=== PATIENT | female | born 1965 | race American Indian/Alaskan Native ===

== ENCOUNTER 2017-09-12 09:33 | Day surgery (SDC) | payer MEDICAID ==
--- NOTE | 2017-09-12 10:37 | Anesthesia Day of Surgery ---
Anesthesia Day of Surgery - Day of Surgery Patient Examined: Yes Patient H&P Reviewed: Yes Patient is NPO: Yes
--- NOTE | 2017-09-12 10:37 | Anesthesia Consultation ---
Anesthesia Consult and Med Hx Date of service: 09/12/17 - Airway Anesthetic Teeth Evaluation: Good ROM Head & Neck: Adequate Mental/Hyoid Distance: Adequate Mallampati Class: Class I Intubation Access Assessment: Good - Pulmonary Exam CTA: Yes - Cardiac Exam Cardiac Exam: RRR - Pre-Operative Health Status ASA Pre-Surgery Classification: ASA3 Proposed Anesthetic Plan: General - Cardiovascular System Hx Hypertension: Yes (3 YEARS) - Central Nervous System Hx Back Pain: Yes Hx Psychiatric Problems: No - Endocrine Hx Non-Insulin Dependent Diabetes: Yes - Hematic Hx Sickle Cell Disease: Yes (TRAIT) - Other Systems Hx Alcohol Use: No Hx Substance Use: No Hx Cancer: No
[2017-09-12] MEDS ORDERED: NACL BACTERIOSTATIC INFILTRATI ONE (10:50)
[2017-09-12] MEDS ORDERED: NACL 0.9% 1000 ML 1,000 ML IV SCH (11:00)
[2017-09-12] MEDS ORDERED: ANCEF/STERILE WATER 2 GM/20 ML IV NR (11:00)
[2017-09-12] MEDS ORDERED: VERSED IV NR (11:00)
[2017-09-12] MEDS ORDERED: SUBLIMAZE ONE ×3 (12:11→15:03)
[2017-09-12] MEDS ORDERED: DIPRIVAN 10 MG/ML IV ONE (12:11)
[2017-09-12] MEDS ORDERED: XYLOCAINE MPF 2% ONE (12:16)
[2017-09-12] MEDS ORDERED: ZEMURON IV ONE (12:16)
[2017-09-12] MEDS ORDERED: XYLOCAINE 1% 20 mL ONE (12:19)
[2017-09-12] MEDS ORDERED: MARCAINE 0.5% 30 ML INFILTRATI ONE (12:19)
[2017-09-12] MEDS ORDERED: NEO SYNEPHRINE/NS Syringe(OR USE) IV ONE (13:02)
[2017-09-12] MEDS ORDERED: NACL 0.9% IR ONE ×2 (13:07→13:08)
[2017-09-12] MEDS ORDERED: MARCAINE 0.5% INFILTRATI ONE (13:08)
[2017-09-12] MEDS ORDERED: XYLOCAINE 1% 20 mL INFILTRATI ONE (13:08)
[2017-09-12] MEDS ORDERED: ePHEDrine SULFATE ONE (13:10)
[2017-09-12] MEDS ORDERED: ROBINUL ONE ×2 (14:14)
[2017-09-12] MEDS ORDERED: NEOSTIGMINE ONE (14:15)
[2017-09-12] MEDS ORDERED: ZOFRAN ONE (14:15)
[2017-09-12] MEDS ORDERED: NACL 0.9% 1000 ML 1,000 ML ONE (14:22)
[2017-09-12] MEDS ORDERED: DILAUDID ONE (14:28)
--- NOTE | 2017-09-12 14:44 | Short Stay Summary ---
Short Stay Documentation Date of service: 09/12/17 Narrative H&P: 52 yo F with recurrent severe RUQ pain presented for evaluation of gallbladder. The patient has symptomatic cholelithiasis. She was scheduled for cholecystectomy and presents today for the procedure. - History Principal diagnosis: chronic cholecystitis H&P: obtained from office - Allergies and Medications Current Medications: Allergies No Known Allergies Allergy (Verified 09/10/17 13:14) Home Medications Medication Instructions Recorded Confirmed Last Taken Type Insulin Glargine [Lantus] 15 unit SUB-Q QHS 09/10/17 09/10/17 09/11/17 History amLODIPine [Norvasc] 5 mg PO DAILY 09/10/17 09/12/17 09/12/17 07:00 History metFORMIN [Glucophage] 500 mg PO QHS 09/10/17 09/10/17 09/11/17 History Active Medications Cefazolin Sodium (Ancef/Sterile Water 2 Gm/20 Ml) 2 gm IV PREOP NR Stop: 09/12/17 21:00 Sodium Chloride (Nacl 0.9% 1000 Ml) 1,000 mls @ 100 mls/hr IV DIRECT ABRAHAM Last Admin: 09/12/17 11:20 Dose: 100 mls/hr Midazolam HCl (Versed) 2 mg IV PREOP NR Stop: 09/12/17 23:59 Last Admin: 09/12/17 11:21 Dose: 2 mg - Brief post op/procedure progress note Date of procedure: 09/12/17 Pre-op diagnosis: chronic cholecystitis Post-op diagnosis: same Procedure: Laparoscopic cholecystectomy Anesthesia: GETA, local Findings: thickened gallbladder wall. Gallbladder neck chronically adhered to area of common bile duct. Surgeon: SILVANO PRATT Estimated blood loss: minimal Pathology: list (gallbladder) Specimen disposition: to lab Condition: stable - Hospital course Hospital course: Patient was recovered in PACU and discharged to home when criteria was met. - Disposition Condition at discharge: Good Disposition: DC-01 TO HOME OR SELFCARE Short Stay Discharge Plan Activity: other (no heavy lifiting for [address] while on prescription pain meds) Diet: low fat Wound: open to air, other (May shower tomorrow, no baths/hottubs/pools until incisions healed. Pat incisions dry, do not scrub) Additional Instructions: Call surgeon's office if you have fevers>100.4, intractable abdominal pain, nausea, vomiting, redness/drainage from incisions. Follow up with: BOONE HUBER MD [Primary Care Provider] - 7 Days SILVANO PRATT DO [Staff Physician] - 14 Days Prescriptions: traMADol [Ultram 50 MG tab] 50 mg PO Q6HR PRN #20 tablet PRN Reason: Pain
[2017-09-12] MEDS ORDERED: TORADOL IV PRN (14:59)
[2017-09-12] MEDS: SUBLIMAZE IV PRN ×2 (15:02→15:12)
--- NOTE | 2017-09-12 15:04 | Post Anesthesia Evaluation ---
- Post Anesthesia Evaluation Patient Participated: Yes Airway Patent: Yes Stable Respiratory Function: Yes Nausea/Vomiting: No Temp > 96.8F: Yes Pain Manageable: Yes Adequeate Hydration: Yes Anesthesia Complications: No
[2017-09-12] MEDS ORDERED: ULTRAM PO PRN (15:09)
--- NOTE | 2017-09-12 15:32 | Operative Report ---
Operative Report Operative Report: Date of operation: 09/12/2017 Preoperative diagnosis: Symptomatic cholelithiasis Postoperative diagnosis: chronic cholecystitis, hydropic gallbladder Procedure performed: Laparoscopic cholecystectomy Surgeon: Terence Gusman DO Anesthesia: Gen. endotracheal anesthesia Findings: Chronically inflamed gallbladder wall, cholelithiasis. The neck of the gallbladder was chronically scarred to area of common bile duct Estimated blood loss: 10 mL Specimens: Gallbladder Complications: None Disposition: Stable to PACU HPI and indication: Patient's a 52-year-old female who was referred to surgery office for evaluation of gallbladder disease. The patient was having severe, intermittent but frequent episodes of right upper quadrant abdominal pain associated with nausea and emesis. These were severely limiting her lifestyle. After reviewing the appropriate lab work and imaging, the patient was found to have cholelithiasis. All risks including but not limited to, infection, bleeding, injury to surrounding structures, bile leak, conversion to an open operation were discussed with the patient and questions answered. Consent for laparoscopic, possible open cholecystectomy was signed. Procedure in detail: The patient was identified in the preoperative area, taken back to the operating room, placed on the operating room table in supine position. After anesthesia was induced, the abdomen was prepped and draped in usual sterile fashion a timeout was performed. Local anesthetic was infiltrated into all skin incision sites. A 5 mm supraumbilical incision was made with an 11 blade through which a veress needle was inserted. The positioning of the veress needle was confirmed with the saline drop test. Abdomen was then insufflated to 15 mmHg. The veress needle was then removed and a 5 mm optiview trocar was placed through this incision. The abdomen was inspected and there was no underlying injury to any of the abdominal contents. The gallbladder was visualized. An additional 12 mm subxiphoid into 5 mm right upper quadrant ports were then placed all under direct visualization. The gallbladder was grasped and lifted cephalad and above the liver. The gallbladder appeared chronically inflamed with a thickened gallbladder wall. The neck of the gallbladder was retracted and the cystic artery was dissected using [place] dissectors. The cystic artery was seen to be pulsatile and dissected distally to the point where it was seen entering the gallbladder. There was chronic inflammation of the fat surrounding the common bile duct which was adhered to the neck of the gallbladder and could not be safely . Therefore it was decided to remove the gallbladder from the liver bed using the dome down approach. The peritoneum of the gallbladder was scored using electrocautery and the gallbladder was carefully removed off the liver bed from the fundus towards the neck using electrocautery. Once the gallbladder was completely removed off the liver bed and the gallbladder neck and cystic artery were the only 2 structures visualized connected to the gallbladder, the cystic artery was clipped with 2 clips proximally and 1 distally and transected using Endo andrea. The gallbladder neck was transected using an Endo SARAH 45 mm white load stapler. The gallbladder was then placed into the Endocatch bag and removed from the abdomen via 12 mm port. The gallbladder was inspected. The cystic artery was examined and clip removed and there was no leakage of bile. The staple line at the neck of the gallbladder was cut with scissors and there was leakage of clear bile and small stones. There were no other tubular structures adhered to the gallbladder. The gallbladder fossa was then inspected, irrigated, and hemostasis achieved using electrocautery. The clips on the cystic artery were visualized and intact. The staple line was visualized and there was no leakage of bile. Gayle's pouch was irrigated and the irrigant returned clear. All ports were then removed under direct visualization. The 12 mm port fascia was closed with interrupted 0 Vicryl sutures. All skin incisions were closed using 4-0 Monocryl subcuticular stitches and skin glue. At the end of the case, all sponge, instrument, sharp counts were correct 2. The patient was awoken from anesthesia, extubated and taken to PACU in stable condition.
[2017-09-12 16:25] VITALS: BP 124/70
== END 2017-09-12 16:59 | disposition home or self-care (01) ==
LOC: OR 09:33
PROVIDERS: ATTEND Surgery
DX: K80.10 Calculus of gallbladder with chronic cholecystitis without obstruction (principal); E11.9 Type 2 diabetes mellitus without complications; I10 Essential (primary) hypertension; D57.3 Sickle-cell trait; Z79.4 Long term (current) use of insulin; Z90.710 Acquired absence of both cervix and uterus; Z98.890 Other specified postprocedural states
CPT/HCPCS: 47562; 82962; 88304; A4217; J0690; J1170; J1885; J2250; J2370; J2405; J2704; J2710; J3010; J7030

== ENCOUNTER 2017-09-14 12:46 | Inpatient (IN) | payer MEDICAID ==
[2017-09-14] MEDS ORDERED: ZOFRAN IV ONE ×3 (13:12→15:56)
[2017-09-14] MEDS ORDERED: ZOFRAN ONE (13:14)
[2017-09-14 14:12] LABS: Basophils % (Auto) 0.4 % (0.0-1.8); Eosinophils # (Auto) 0.1 K/mm3 (0.0-0.4); Eosinophils % (Auto) 1.3 % (0.0-4.3); Hematocrit 39.1 % (30.3-42.9); Hemoglobin 13.1 gm/dl (10.1-14.3); Lymphocytes # (Auto) 1.3 K/mm3 (1.2-5.4); Mean Corpuscular HGB Conc 34 % (30-34); Mean Corpuscular Hemoglobin 26 pg (28-32); Mean Corpuscular Volume 78 fl (79-97); Monocytes # (Auto) 0.5 K/mm3 (0.0-0.8); Monocytes % (Auto) 7.2 % (0.0-7.3); Red Blood Count 5.02 M/mm3 (3.65-5.03)
[2017-09-14 14:17] LABS: Alanine Aminotransferase 113 units/L (7-56); Albumin 3.4 g/dL (3.9-5); BUN/Creatinine Ratio 30; Blood Urea Nitrogen 6 mg/dL (7-17); Hemolysis Index 46; Lipase 20 units/L (13-60)
--- NOTE | 2017-09-14 14:44 | XRay Report ---
FINAL REPORT EXAM: XR CHEST 1V AP HISTORY: wheezes TECHNIQUE: Frontal chest x-ray. PRIORS: None currently available. FINDINGS: Mild cardiomegaly. Tortuous descending aorta. There is no effusion. There is no pneumothorax. There is no consolidation. There are no suspicious osseous lesions. Dextroscoliosis. IMPRESSION: Mild cardiomegaly. No acute pulmonary findings.
[2017-09-14] MEDS ORDERED: MORPHINE ONE (14:53)
[2017-09-14] MEDS ORDERED: SUBLIMAZE IV ONE (14:54)
[2017-09-14 14:56] LABS: Mean Platelet Volume 9.8 fl (6-12); Platelet Count 126 K/mm3 (140-440)
--- NOTE | 2017-09-14 15:01 | Cat Scan Report ---
FINAL REPORT EXAM: CT ABDOMEN PELVIS W CON HISTORY: pain TECHNIQUE: CT of the abdomen and pelvis with IV contrast. Coronal and sagittal reconstructed imaging provided. PRIORS: None currently available. FINDINGS: ABDOMEN: Small bilateral pleural effusions with adjacent areas of subsegmental atelectasis and or infiltrates. [id number] cardiomegaly. No pericardial effusion. Fatty liver. No suspicious enhancement or lesions. Stranding and trace fluid in the right colonic gutter may represent postsurgical changes. Small biloma is not entirely excluded. Cholecystectomy clips identified. Stranding and gas in the overlying abdominal wall soft tissues also suggest postsurgical changes. Series 3:62 demonstrates the right lateral rectus muscle appears slightly asymmetrically larger compared to the left and may represent postsurgical changes. Stomach, spleen, pancreas, and adrenals are unremarkable. Kidneys: Subcentimeter hypodensity in right kidney statistically likely represents a cyst but is too small to accurately characterize. Symmetrical cortical enhancement. No suspicious lesions. No hydronephrosis. IVC is intact. No aortic aneurysm or dissection. Mild aortic atherosclerotic disease. No periaortic or retroperitoneal mass or adenopathy. Ixma-ja-lwayooky stool is present throughout the colon. No wall thickening or inflammatory changes. Terminal ilium is unremarkable. Appendix is normal. Small bowel loops are unremarkable. No obstructive pattern. No free air. No free fluid. Diastasis recti. Fat containing umbilical hernia. No strangulation. Trace fluid and stranding noted in Morison's pouch. PELVIS: Small amount of fluid in the pelvis which may be postsurgical or physiologic. Bladder is unremarkable. Uterus is not clearly identified and may be surgically removed, small, or atrophic. No pelvic mass or adenopathy. Inguinal regions are unremarkable. Bones: No suspicious osseous lesions on this limited examination of the skeleton. Metastatic disease better evaluated with bone scan. Degenerative changes are in the spine. IMPRESSION: Trace fluid and stranding in the gallbladder fossa and hand Morison's pouch with a cholecystectomy clips suggest postsurgical changes. Postsurgical changes also noted within the right upper quadrant anterior abdominal soft tissues. Small biloma not entirely excluded. Small bilateral pleural effusions. Fatty liver. Cardiomegaly. Probable right renal cyst. Small amount of fluid in the pelvis which may be postsurgical or physiologic.
[2017-09-14] MEDS ORDERED: MORPHINE IV ONE (15:02)
[2017-09-14 15:18] LABS: Bacteria,Urine 1+ /HPF (Negative); Bilirubin,Urine SM (Negative); Blood,Urine NEG (Negative); Color,Urine Amber (Yellow); Mucus,Urine FEW /HPF; Nitrite,Urine NEG (Negative); Protein,Urine <15 mg/dL mg/dL (Negative); Urobilinogen,Urine < 2.0 mg/dL (<2.0)
[2017-09-14 15:26] LABS: Ictotest,Urine Negative (Negative)
[2017-09-14] MEDS ORDERED: NACL 0.9% 1000 ML 1,000 ML IV ONE ×2 (15:56→21:43)
--- NOTE | 2017-09-14 17:32 | Emergency Department Report ---
ED Abdominal Pain HPI - General Chief Complaint: Abdominal Pain Stated Complaint: ABD PAIN FROM SURGERY Time Seen by Provider: 09/14/17 13:46 Source: patient, EMS Mode of arrival: Stretcher Limitations: No Limitations - History of Present Illness Initial Comments: 52-year-old history of diabetes status post laparoscopic cholecystectomy 2 days here with worsening persistent nausea vomiting and abdominal pain. No shortness of breath no cough no productive sputum no urinary complaints MD Complaint: abdominal pain -: hour(s) Location: diffuse, epigastric Radiation: none Migration to: RLQ Severity: moderate Severity scale (0 -10): 1 Quality: cramping Consistency: intermittent Associated Symptoms: nausea, vomiting. denies: diarrhea, fever, chills, hematemesis, hematochezia, melena, hematuria, syncope - Related Data Home Medications Medication Instructions Recorded Confirmed Last Taken Insulin Glargine [Lantus VIAL] 15 unit SUB-Q QHS 09/10/17 09/10/17 09/11/17 amLODIPine [Norvasc] 5 mg PO DAILY 09/10/17 09/12/17 09/12/17 07:00 metFORMIN [Glucophage] 500 mg PO QHS 09/10/17 09/10/17 09/11/17 Previous Rx's Medication Instructions Recorded Last Taken Type traMADol [Ultram 50 MG tab] 50 mg PO Q6HR PRN #20 tablet 09/12/17 Unknown Rx Allergies Allergy/AdvReac Type Severity Reaction Status Date / Time No Known Allergies Allergy Verified 09/10/17 13:14 ED Review of Systems ROS: Stated complaint: ABD PAIN FROM SURGERY Other details as noted in HPI Comment: All other systems reviewed and negative Constitutional: denies: chills, diaphoresis, fever, malaise, weakness ENT: denies: dental pain, hearing loss, congestion Respiratory: denies: cough, orthopnea, shortness of breath, SOB with exertion, SOB at rest Cardiovascular: denies: chest pain, palpitations, dyspnea on exertion, orthopnea , edema, syncope Gastrointestinal: abdominal pain, nausea, vomiting. denies: diarrhea, constipation, hematemesis, melena, hematochezia Genitourinary: denies: urgency, dysuria, frequency, hematuria, abnormal menses, dyspareunia Neurological: denies: headache, weakness, numbness, paresthesias, confusion, abnormal gait, vertigo ED Past Medical Hx - Past Medical History Hx Hypertension: Yes (3 YEARS) Hx Diabetes: Yes (4 YEARS) Hx Sickle Cell Disease: Yes (TRAIT) Hx Arthritis: Yes Hx HIV: No - Surgical History Hx Cholecystectomy: Yes (09/12/2017) - Social History Smoking Status: Never Smoker Substance Use Type: None - Medications Home Medications: Home Medications Medication Instructions Recorded Confirmed Last Taken Type Insulin Glargine [Lantus VIAL] 15 unit SUB-Q QHS 09/10/17 09/10/17 09/11/17 History amLODIPine [Norvasc] 5 mg PO DAILY 09/10/17 09/12/17 09/12/17 07:00 History metFORMIN [Glucophage] 500 mg PO QHS 09/10/17 09/10/17 09/11/17 History traMADol [Ultram 50 MG tab] 50 mg PO Q6HR PRN #20 tablet 09/12/17 Unknown Rx ED Physical Exam - General Limitations: No Limitations General appearance: alert, anxious - Head Head exam: Present: atraumatic, normocephalic - Eye Eye exam: Present: PERRL, EOMI - ENT ENT exam: Present: normal exam, normal orophraynx - Neck Neck exam: Present: normal inspection. Absent: meningismus - Respiratory Respiratory exam: Present: normal lung sounds bilaterally. Absent: respiratory distress, wheezes, rales, rhonchi, stridor, chest wall tenderness, accessory muscle use, decreased breath sounds, prolonged expiratory - Cardiovascular Cardiovascular Exam: Present: regular rate, normal heart sounds. Absent: rubs, gallop - GI/Abdominal GI/Abdominal exam: Present: soft, tenderness. Absent: guarding, pulsatile mass - Extremities Exam Extremities exam: Present: normal inspection, other (decreased turgor). Absent : calf tenderness - Back Exam Back exam: Present: normal inspection. Absent: muscle spasm, paraspinal tenderness, vertebral tenderness, rash noted - Neurological Exam Neurological exam: Present: alert, oriented X3, CN II-XII intact. Absent: motor sensory deficit - Skin Skin exam: Absent: erythema, urticaria, vesicles, petechiae, ecchymosis ED Course Vital Signs 09/14/17 09/14/17 09/14/17 12:55 13:00 13:03 Temperature 98.9 F Pulse Rate 77 82 Respiratory 24 16 Rate Blood Pressure 169/89 161/90 O2 Sat by Pulse 99 95 97 Oximetry 09/14/17 09/14/17 09/14/17 13:30 14:00 14:39 Temperature Pulse Rate 82 74 88 Respiratory 21 21 Rate Blood Pressure 136/77 160/82 160/82 O2 Sat by Pulse 98 96 Oximetry 09/14/17 09/14/17 09/14/17 15:00 15:11 15:21 Temperature Pulse Rate 79 75 77 Respiratory 15 15 19 Rate Blood Pressure 163/90 163/90 163/90 O2 Sat by Pulse 100 100 99 Oximetry 09/14/17 09/14/17 09/14/17 15:30 15:40 15:46 Temperature Pulse Rate 82 78 77 Respiratory 18 23 16 Rate Blood Pressure 178/101 178/101 178/101 O2 Sat by Pulse 96 100 Oximetry 09/14/17 09/14/17 09/14/17 16:00 16:15 16:26 Temperature 99 F Pulse Rate 77 77 Respiratory 25 H 24 Rate Blood Pressure 160/88 169/82 O2 Sat by Pulse 96 Oximetry - Reevaluation(s) Reevaluation #1: 09/14/17 17:37 Patient given IV fluids and antiemetics CT was ordered laboratory studies was discussed with ED Medical Decision Making - Lab Data Result diagrams: 09/14/17 13:26 09/14/17 13:26 - Radiology Data Radiology results: report reviewed - Medical Decision Making Patient has normal white count does have elevated total bilirubin she does have dark urine as well question of mild UTI. Chest x-ray is no acute process for infection. CT abdomen does show possible biloma given the symptoms with persistent nausea and vomiting and pain elevated bilirubin. Case was discussed with Dr. TEJEDA we will go ahead and admit and get MR CP to evaluate for possible retained stone patient is improved in pain and symptoms case was also discussed with Dr. Ronquillo who will evaluate patient for medical management of diabetes and high blood pressure. Dr. Willingham did return the page and stated be okay to admit the patient to the surgical service for further management. Patient is mild to moderately discomfort but does not appear septic or toxic at this time therefore we will hold antibiotics given the normal WBC. Critical care attestation.: If time is entered above; I have spent that time in minutes in the direct care of this critically ill patient, excluding procedure time. ED Disposition Clinical Impression: Abdominal pain, Elevated bilirubin Disposition: DC-09 OP ADMIT IP TO THIS HOSP Is pt being admited?: Yes Condition: Stable Instructions: Abdominal Pain (ED) Referrals: PRIMARY CARE, [Primary Care Provider] - 3-5 Days Time of Disposition: 17:40
--- NOTE | 2017-09-14 20:34 | Magnetic Resonance Report ---
FINAL REPORT EXAM: MR ABDOMEN MRCP HISTORY: post op/possible ductal stone COMPARISON: CT of the abdomen pelvis from September 14, 2017. TECHNIQUE: Several multiplanar noncontrast sequences were obtained. Max intensity projection images obtained of the biliary and pancreatic tree. FINDINGS: Gallbladder surgically absent. Susceptibility artifact at the gallbladder fossa related to surgical clips. Trace fluid in the gallbladder fossa. No definite drainable fluid collection on this noncontrast exam. Mild diffuse fatty infiltration of the liver. No gross focal hepatic lesion. Liver measures 20 centimeters in length within normal limits. There is gas within the lumen of the duodenum. Common bile duct measures up to 6 millimeters, borderline dilated for patient age. At the pancreatic head, the common bile duct tapers to a normal caliber measuring 2-3 millimeters. No intraluminal filling defect identified within the common bile duct. No pancreatic ductal dilatation. No gross focal pancreatic lesion. Relatively homogeneous signal intensity the pancreas and spleen. No adrenal mass. T2 hyperintense structure at the inferior margin right kidney measuring 5 millimeters most compatible with cyst. No hydronephrosis. Visualized aorta and IVC normal in caliber. Mild wall thickening the padded flexure of the colon adjacent to the gallbladder fossa. There may be mild secondary inflammation of the colon related to recent cholecystectomy. IMPRESSION: No filling defect identified within the common bile duct. Borderline dilatation the common bile duct for patient age. This may relate to recent post cholecystectomy state. No gross intrahepatic biliary dilatation. Fluid at the gallbladder fossa. No definable fluid collection on this noncontrast exam at the gallbladder fossa. Mild wall thickening and fat stranding of the hepatic flexure of the colon adjacent to the cholecystectomy site. There may be mild secondary inflammation of the colon related to recent cholecystectomy.
[2017-09-14] MEDS ORDERED: ZOFRAN IV PRN (20:58)
[2017-09-14] MEDS ORDERED: MILK OF MAGNESIA PO PRN (20:58)
[2017-09-14] MEDS ORDERED: DULCOLAX PR PRN (20:58)
[2017-09-14] MEDS ORDERED: NORCO 5/325 PO PRN (20:58)
[2017-09-14] MEDS: MORPHINE IV PRN (21:41)
[2017-09-14] MEDS ORDERED: ROBITUSSIN AC PO PRN (21:43)
--- NOTE | 2017-09-14 21:46 | History and Physical Report ---
History of Present Illness Date of examination: 09/14/17 Date of admission: 09/14/17 17:55 Medications and Allergies Allergies Allergy/AdvReac Type Severity Reaction Status Date / Time No Known Allergies Allergy Verified 09/10/17 13:14 Home Medications Medication Instructions Recorded Confirmed Last Taken Type Insulin Glargine [Lantus VIAL] 15 unit SUB-Q QHS 09/10/17 09/10/17 09/11/17 History amLODIPine [Norvasc] 5 mg PO DAILY 09/10/17 09/12/17 09/12/17 07:00 History metFORMIN [Glucophage] 500 mg PO QHS 09/10/17 09/10/17 09/11/17 History traMADol [Ultram 50 MG tab] 50 mg PO Q6HR PRN #20 tablet 09/12/17 Unknown Rx Active Meds: Active Medications Acetaminophen (Tylenol) 650 mg PO Q4H PRN PRN Reason: Pain MILD(1-3)/Fever >100.5/[place] Acetaminophen/Hydrocodone Bitart ([place] 5/325) 2 each PO Q6H PRN PRN Reason: Pain, Moderate (4-6) Bisacodyl (Dulcolax) 10 mg [place] QDAY PRN PRN Reason: Constipation unrelieved by MOM Potassium Chloride/Dextrose/Sod Cl (D5w/0.45% Nacl/Kcl 20 Meq) 20 meq in 1,000 mls @ 100 mls/hr IV DIRECT ABRAHAM Magnesium Hydroxide (Milk Of Magnesia) 30 ml PO Q4H PRN PRN Reason: Constipation Morphine Sulfate (Morphine) 2 mg IV Q4H PRN PRN Reason: Pain , Severe (7-10) Last Admin: 09/14/17 21:41 Dose: 2 mg Ondansetron HCl (Zofran) 4 mg IV Q8H PRN PRN Reason: N/V unrelieved by Reglan Exam - Constitutional Vitals: Temp Pulse Resp BP Pulse Ox 99 F 72 20 148/87 97 09/14/17 16:26 09/14/17 18:15 09/14/17 21:41 09/14/17 18:15 09/14/17 18:15 Results - Labs CBC & Chem 7: 09/14/17 13:26 09/14/17 13:26 Labs: Laboratory Last Values WBC 6.5 K/mm3 (4.5-11.0) 09/14/17 13:26 RBC 5.02 M/mm3 (3.65-5.03) 09/14/17 13:26 Hgb 13.1 gm/dl (10.1-14.3) 09/14/17 13:26 Hct 39.1 % (30.3-42.9) 09/14/17 13:26 MCV 78 fl (79-97) L 09/14/17 13: MCH 26 pg (28-32) L 09/14/17 13:26 MCHC 34 % (30-34) 09/14/17 13:26 RDW 14.0 % (13.2-15.2) 09/14/17 13: Plt Count 126 K/mm3 (140-440) L 09/14/17 13:26 Lymph % (Auto) 20.0 % (13.4-35.0) 09/14/17 13:26 [place] % (Auto) 7.2 % (0.0-7.3) 09/14/17 13:26 Eos % (Auto) 1.3 % (0.0-4.3) 09/14/17 13:26 Baso % (Auto) 0.4 % (0.0-1.8) 09/14/17 13:26 Lymph # 1.3 K/mm3 (1.2-5.4) 09/14/17 13:26 [place] # 0.5 K/mm3 (0.0-0.8) 09/14/17 13: Eos # 0.1 K/mm3 (0.0-0.4) 09/14/17 13:26 Baso # 0.0 K/mm3 (0.0-0.1) 09/14/17 13:26 Seg Neutrophils % 71.1 % (40.0-70.0) H 09/14/17 13: Seg Neutrophils # 4.6 K/mm3 (1.8-7.7) 09/14/17 13:26 Sodium 138 mmol/L (137-145) 09/14/17 13:26 Potassium 3.8 mmol/L (3.6-5.0) 09/14/17 13:26 Chloride 98.4 mmol/L (98-107) 09/14/17 13:26 Carbon Dioxide 24 mmol/L (22-30) 09/14/17 13:26 Anion Gap 19 mmol/L 09/14/17 13:26 BUN 6 mg/dL (7-17) L 09/14/17 13:26 Creatinine 0.2 mg/dL (0.7-1.2) L 09/14/17 13:26 Estimated GFR > 60 ml/min 09/14/17 13:26 BUN/Creatinine Ratio 30 % 09/14/17 13:26 Glucose 129 mg/dL (65-100) H 09/14/17 13:26 Calcium 9.0 mg/dL (8.4-10.2) 09/14/17 13:26 Total Bilirubin 4.60 mg/dL (0.1-1.2) H 09/14/17 17:37 Direct Bilirubin 4.0 mg/dL (0-0.2) H 09/14/17 17:37 Indirect Bilirubin 0.6 mg/dL 09/14/17 17:37 AST 81 units/L (5-40) H 09/14/17 13:26 ALT 113 units/L (7-56) H 09/14/17 13:26 Alkaline Phosphatase 134 units/L (35-129) H 09/14/17 13:26 Total Protein 7.9 g/dL (6.3-8.2) 09/14/17 13:26 Albumin 3.4 g/dL (3.9-5) L 09/14/17 13:26 Albumin/Globulin Ratio 0.8 % 09/14/17 13:26 Lipase 20 units/L (13-60) 09/14/17 13:26 HCG, Qual Negative (Negative) 09/14/17 13:26 Urine Color Sadie (Yellow) 09/14/17 15:00 Urine Turbidity Clear (Clear) 09/14/17 15:00 Urine pH 7.0 (5.0-7.0) 09/14/17 15:00 Ur Specific [place] 1.013 (1.003-1.030) 09/14/17 15:00 Urine Protein <15 mg/dl mg/dL (Negative) 09/14/17 15:00 Urine Glucose (UA) Neg mg/dL (Negative) 09/14/17 15:00 Urine Ketones 80 mg/dL (Negative) 09/14/17 15:00 Urine Blood Neg (Negative) 09/14/17 15:00 Urine Nitrite Neg (Negative) 09/14/17 15:00 Urine Bilirubin Sm (Negative) 09/14/17 15:00 Urine Ictotest Negative (Negative) 09/14/17 15:00 Urine Urobilinogen < 2.0 mg/dL (<2.0) 09/14/17 15:00 Ur Leukocyte Esterase Neg (Negative) 09/14/17 15:00 Urine WBC (Auto) 3.0 /HPF (0.0-6.0) 09/14/17 15:00 Urine RBC (Auto) 7.0 /HPF (0.0-6.0) 09/14/17 15:00 U Epithel Cells (Auto) 4.0 /HPF (0-13.0) 09/14/17 15:00 Urine Bacteria (Auto) 1+ /HPF (Negative) 09/14/17 15:00 Urine Mucus Few /HPF 09/14/17 15:00
--- NOTE | 2017-09-14 21:47 | Consultation ---
History of Present Illness - Reason for Consult Consult date: 09/14/17 Medical management Requesting physician: SRUTHI LEONARD - History of Present Illness History of Present Illness 52-year-old with history of IDDM and Htn st post laparoscopic cholecystectomy 2 days ago here with worsening persistent nausea vomiting and abdominal pain after discharge..Also cough productive of yellow sputum and Fever for 2 days.Vomiting about 4 to 6 times Past Medical History Hx Hypertension: Yes (3 YEARS) Hx Diabetes: Yes (4 YEARS) Hx Sickle Cell Disease: Yes (TRAIT) Hx Arthritis: Yes Hx HIV: No - Surgical History Hx Cholecystectomy: Yes (09/12/2017) - Social History Smoking Status: Never Smoker Substance Use Type: None - Medications Home Medications: Home Medications Medication Instructions Recorded Confirmed Last Taken Type Insulin Glargine [Lantus VIAL] 15 unit SUB-Q QHS 09/10/17 09/10/17 09/11/17 History amLODIPine [Norvasc] 5 mg PO DAILY 09/10/17 09/12/17 09/12/17 07:00 History metFORMIN [Glucophage] 500 mg PO QHS 09/10/17 09/10/17 09/11/17 History traMADol [Ultram 50 MG tab] 50 mg PO Q6HR PRN #20 tablet 09/12/17 Unknown Rx Review of Systems Stated complaint: ABD PAIN FROM SURGERY Other details as noted in HPI Comment: All other systems reviewed and negative Constitutional: denies: chills, diaphoresis, fever, malaise, weakness ENT: denies: dental pain, hearing loss, congestion Respiratory: denies: cough, orthopnea, shortness of breath, SOB with exertion, SOB at rest Cardiovascular: denies: chest pain, palpitations, dyspnea on exertion, orthopnea , edema, syncope Gastrointestinal: abdominal pain, nausea, vomiting. denies: diarrhea, constipation, hematemesis, melena, hematochezia Genitourinary: denies: urgency, dysuria, frequency, hematuria, abnormal menses, dyspareunia Neurological: denies: headache, weakness, numbness, paresthesias, confusion, abnormal gait, vertigo Medications and Allergies Allergies Allergy/AdvReac Type Severity Reaction Status Date / Time No Known Allergies Allergy Verified 09/10/17 13:14 Home Medications Medication Instructions Recorded Confirmed Last Taken Type Insulin Glargine [Lantus VIAL] 15 unit SUB-Q QHS 09/10/17 09/15/17 09/13/17 History amLODIPine [Norvasc] 5 mg PO DAILY 09/10/17 09/15/17 09/13/17 History metFORMIN [Glucophage] 500 mg PO DAILY 09/10/17 09/15/17 09/13/17 History Active Meds: Active Medications Acetaminophen (Tylenol) 650 mg PO Q4H PRN PRN Reason: Pain MILD(1-3)/Fever >100.5/[place] Acetaminophen/Hydrocodone Bitart ([place] 5/325) 2 each PO Q6H PRN PRN Reason: Pain, Moderate (4-6) Bisacodyl (Dulcolax) 10 mg [place] QDAY PRN PRN Reason: Constipation unrelieved by MOM Potassium Chloride/Dextrose/Sod Cl (D5w/0.45% Nacl/Kcl 20 Meq) 20 meq in 1,000 mls @ 100 mls/hr IV DIRECT ABRAHAM Magnesium Hydroxide (Milk Of Magnesia) 30 ml PO Q4H PRN PRN Reason: Constipation Morphine Sulfate (Morphine) 2 mg IV Q4H PRN PRN Reason: Pain , Severe (7-10) Last Admin: 09/14/17 21:41 Dose: 2 mg Ondansetron HCl (Zofran) 4 mg IV Q8H PRN PRN Reason: N/V unrelieved by Reglan Exam - Constitutional Vitals: Temp Pulse Resp BP Pulse Ox 99 F 72 20 148/87 97 09/14/17 16:26 09/14/17 18:15 09/14/17 21:41 09/14/17 18:15 09/14/17 18:15 General appearance: Present: mild distress, well-nourished - EENT Eyes: Present: PERRL ENT: hearing intact, clear oral mucosa - Neck Neck: Present: supple, normal ROM - Respiratory Respiratory effort: normal Respiratory: bilateral: CTA - Cardiovascular Heart rate: 90 Rhythm: regular Heart Sounds: Present: S1 & S2. Absent: rub, click - Extremities Extremities: pulses symmetrical, No edema Peripheral Pulses: within normal limits - Abdominal General gastrointestinal: Present: soft, non-tender, non-distended, normal bowel sounds Female genitourinary: Present: normal - Rectal Rectal Exam: deferred - Integumentary Integumentary: Present: clear, warm, dry - Musculoskeletal Musculoskeletal: gait normal, strength equal bilaterally - Psychiatric Psychiatric: appropriate mood/affect, intact judgment & insight - Neurologic Neurologic: CNII-XII intact, moves all extremities - Allied Health Allied health notes reviewed: nursing, case management Results - Labs CBC & Chem 7: 09/15/17 02:55 09/15/17 02:55 Labs: Abnormal lab results 09/14/17 09/14/17 09/14/17 Range/Units 13:26 13:26 17:37 MCV 78 L (79-97) fl MCH 26 L (28-32) pg Plt Count 126 L (140-440) K/mm3 Seg Neutrophils % 71.1 H (40.0-70.0) % BUN 6 L (7-17) mg/dL Creatinine 0.2 L (0.7-1.2) mg/dL Glucose 129 H (65-100) mg/dL Total Bilirubin 4.60 H 4.60 H (0.1-1.2) mg/dL Direct Bilirubin 4.0 H (0-0.2) mg/dL AST 81 H (5-40) units/L ALT 113 H (7-56) units/L Alkaline Phosphatase 134 H (35-129) units/L Albumin 3.4 L (3.9-5) g/dL Short CBC 09/14/17 09/15/17 Range/Units 13:26 02:55 WBC 6.5 6.0 (4.5-11.0) K/mm3 Hgb 13.1 12.3 (10.1-14.3) gm/dl Hct 39.1 37.1 (30.3-42.9) % Plt Count 126 L 143 (140-440) K/mm3 [facility] 09/14/17 09/15/17 13:26 02:55 Sodium 138 141 Potassium 3.8 4.4 Chloride 98.4 99.4 Carbon Dioxide 24 27 BUN 6 L 6 L Creatinine 0.2 L 0.4 L D Glucose 129 H 147 H Calcium 9.0 8.6 Liver Function 09/14/17 09/14/17 09/15/17 Range/Units 13:26 17:37 02:55 Total Bilirubin 4.60 H 4.60 H 4.70 H (0.1-1.2) mg/dL Direct Bilirubin 4.0 H (0-0.2) mg/dL AST 81 H 100 H (5-40) units/L ALT 113 H 119 H (7-56) units/L Alkaline Phosphatase 134 H 138 H (35-129) units/L Albumin 3.4 L 3.4 L (3.9-5) g/dL Urine 09/14/17 Range/Units 15:00 Urine Color Sadie (Yellow) Urine pH 7.0 (5.0-7.0) Ur Specific [place] 1.013 (1.003-1.030) Urine Protein <15 mg/dl (Negative) mg/dL Urine Glucose (UA) Neg (Negative) mg/dL - Imaging and Cardiology CT scan - abdomen: report reviewed (Post cholecystectomy clips and small amt of fluid in Pelvis) Assessment and Plan - Patient Problems (1) IDDM (insulin dependent diabetes mellitus) Current Visit: Yes Status: Chronic Plan to address problem: Coverage for now Check A1c resume home insulin when she starts eating (2) HTN (hypertension) Current Visit: Yes Status: Chronic Qualifiers: Hypertension type: essential hypertension Qualified Code(s): I10 - Essential (primary) hypertension Plan to address problem: Hold Po anti hypertensive. Resume when eating If BP goes up then use Catapress patch Now BP 106/70 (3) Cholelithiasis Current Visit: Yes Status: Acute (4) Cholelithiases Current Visit: Yes Status: Acute Qualifiers: Cholelithiasis location: bile duct Plan to address problem: Possible gall stone in Bile duct May need ERCP GI consult (5) Transaminitis Current Visit: Yes Status: Acute Plan to address problem: Sec to Bile duct obstruction ERCP? (6) DVT prophylaxis Current Visit: Yes Status: Acute Plan to address problem: On Lovenox
[2017-09-14] MEDS ORDERED: TORADOL IV ONE (21:48)
--- NOTE | 2017-09-14 21:56 | History and Physical Report ---
History of Present Illness Date of examination: 09/14/17 Date of admission: 09/14/17 17:55 Chief complaint: nausea and vomiting History of present illness: 52yo F s/p lap roni POD#2 who reports that she developed a fever of 102 the night of surgery in addition to a productive cough. Was not around anyone that was sick. She had N/V since the day of surgery. has not been able to keep anything down. Her abdominal pain is at the navel. It is exacerbated by coughing. the cough is productive with yellow sputum. Had a fever this AM of 104. Feels SOB. Chest pain with coughing. Reports hives all over her body after surgery that responded to washing the skin with alcohol. Did not apply alcohol to the wounds. Has not taken her DM meds. Past History Past Medical History: diabetes, hypertension Past Surgical History: cholecystectomy, Social history: denies: smoking, alcohol abuse Family history: no significant family history Medications and Allergies Allergies Allergy/AdvReac Type Severity Reaction Status Date / Time No Known Allergies Allergy Verified 09/10/17 13:14 Home Medications Medication Instructions Recorded Confirmed Last Taken Type Insulin Glargine [Lantus VIAL] 15 unit SUB-Q QHS 09/10/17 09/10/17 09/11/17 History amLODIPine [Norvasc] 5 mg PO DAILY 09/10/17 09/12/17 09/12/17 07:00 History metFORMIN [Glucophage] 500 mg PO QHS 09/10/17 09/10/17 09/11/17 History traMADol [Ultram 50 MG tab] 50 mg PO Q6HR PRN #20 tablet 09/12/17 Unknown Rx Active Meds: Active Medications Acetaminophen (Tylenol) 650 mg PO Q4H PRN PRN Reason: Pain MILD(1-3)/Fever >100.5/[place] Acetaminophen/Hydrocodone Bitart ([place] 5/325) 2 each PO Q6H PRN PRN Reason: Pain, Moderate (4-6) Bisacodyl (Dulcolax) 10 mg [place] QDAY PRN PRN Reason: Constipation unrelieved by MOM Potassium Chloride/Dextrose/Sod Cl (D5w/0.45% Nacl/Kcl 20 Meq) 20 meq in 1,000 mls @ 100 mls/hr IV DIRECT ABRAHAM Sodium Chloride (Nacl 0.9% 1000 Ml) 1,000 mls @ 999 mls/hr IV BOLUS ONE Stop: 09/14/17 22:43 Insulin Aspart (Novolog) 0 units SUB-Q Q6HR ABRAHAM PRN Reason: Protocol Ketorolac Tromethamine (Toradol) 30 mg IV ONCE ONE Stop: 09/14/17 21:49 Magnesium Hydroxide (Milk Of Magnesia) 30 ml PO Q4H PRN PRN Reason: Constipation Morphine Sulfate (Morphine) 2 mg IV Q4H PRN PRN Reason: Pain , Severe (7-10) Last Admin: 09/14/17 21:41 Dose: 2 mg Ondansetron HCl (Zofran) 8 mg IV Q8H ABRAHAM Stop: 09/16/17 21:59 Pseudoephedrine/Acetam/Chlorphenir (Robitussin Ac) 10 ml PO Q4H PRN PRN Reason: Cough Review of Systems - Constitutional fever, no chills, no sweats, no night sweats - EENT Ears, nose, mouth and throat: no nasal congestion, no nasal discharge, no sinus pressure, no sinus pain - Cardiovascular chest pain (with coughing), shortness of breath - Respiratory cough with sputum, shortness of breath, no hemoptysis - Gastrointestinal abdominal pain (at navel with coughing), nausea, vomiting, no diarrhea, no constipation, no hematemesis, no BRBPR, no melena - Genitourinary Genitourinary: no dysuria - Integumentary pruritis (after surgery) Exam Vital Signs Pulse Ox 99 09/14/17 12:55 - General physical appearance Positive: well developed, well nourished, no distress, no pain, other (appears tired. Appropriate conversation. Awake and alert. Does not appear septic) - Eyes Positive: normal occular movement, icteric - ENT Positive: other (dry oral mucosa) - Respiratory Positive: normal expansion, normal respiratory effort, clear to auscultation - Cardiovascular Rhythm: regular - Breasts Breasts: deferred - Abdomen Abdomen: Present: soft, tender (incisional - appropriate), bowel sounds normal, surgical scars (C/D/I - Dermabond present). Absent: distended, rigid, wound - Integumentary no rash - Neurologic Neurologic: alert and oriented to time, place and person, motor strength and sensation are grossly intact - Psychiatric Psychiatric: appropriate mood/affect, intact judgment & insight Results - Labs 09/14/17 13:26 09/14/17 13:26 Abnormal lab results 09/14/17 09/14/17 09/14/17 Range/Units 13:26 13:26 17:37 MCV 78 L (79-97) fl MCH 26 L (28-32) pg Plt Count 126 L (140-440) K/mm3 Seg Neutrophils % 71.1 H (40.0-70.0) % BUN 6 L (7-17) mg/dL Creatinine 0.2 L (0.7-1.2) mg/dL Glucose 129 H (65-100) mg/dL Total Bilirubin 4.60 H 4.60 H (0.1-1.2) mg/dL Direct Bilirubin 4.0 H (0-0.2) mg/dL AST 81 H (5-40) units/L ALT 113 H (7-56) units/L Alkaline Phosphatase 134 H (35-129) units/L Albumin 3.4 L (3.9-5) g/dL Diabetes panel 09/14/17 Range/Units 13:26 Sodium 138 (137-145) mmol/L Potassium 3.8 (3.6-5.0) mmol/L Chloride 98.4 (98-107) mmol/L Carbon Dioxide 24 (22-30) mmol/L BUN 6 L (7-17) mg/dL Creatinine 0.2 L (0.7-1.2) mg/dL Glucose 129 H (65-100) mg/dL Calcium 9.0 (8.4-10.2) mg/dL AST 81 H (5-40) units/L ALT 113 H (7-56) units/L Alkaline Phosphatase 134 H (35-129) units/L Total Protein 7.9 (6.3-8.2) g/dL Albumin 3.4 L (3.9-5) g/dL Calcium panel 09/14/17 Range/Units 13:26 Calcium 9.0 (8.4-10.2) mg/dL Albumin 3.4 L (3.9-5) g/dL Pituitary panel 09/14/17 Range/Units 13:26 Sodium 138 (137-145) mmol/L Potassium 3.8 (3.6-5.0) mmol/L Chloride 98.4 (98-107) mmol/L Carbon Dioxide 24 (22-30) mmol/L BUN 6 L (7-17) mg/dL Creatinine 0.2 L (0.7-1.2) mg/dL Glucose 129 H (65-100) mg/dL Calcium 9.0 (8.4-10.2) mg/dL Adrenal panel 09/14/17 09/14/17 Range/Units 13:26 17:37 Sodium 138 (137-145) mmol/L Potassium 3.8 (3.6-5.0) mmol/L Chloride 98.4 (98-107) mmol/L Carbon Dioxide 24 (22-30) mmol/L BUN 6 L (7-17) mg/dL Creatinine 0.2 L (0.7-1.2) mg/dL Glucose 129 H (65-100) mg/dL Calcium 9.0 (8.4-10.2) mg/dL Total Bilirubin 4.60 H 4.60 H (0.1-1.2) mg/dL AST 81 H (5-40) units/L ALT 113 H (7-56) units/L Alkaline Phosphatase 134 H (35-129) units/L Total Protein 7.9 (6.3-8.2) g/dL Albumin 3.4 L (3.9-5) g/dL - Imaging Chest x-ray: report reviewed, image reviewed CT scan - abdomen: report reviewed, image reviewed Additional studies: MRCP - report and images reviewed Assessment and Plan - Patient Problems (1) Elevated bilirubin Current Visit: Yes Status: Acute Plan to address problem: Pt is clinically stable. Does not appear septic. Based on MRCP report, there is no obstruction. It does not appear that there is a bile leak based on CT and MRCP. Will see what morning labs look like. May get HIDA if picture is still unclear. For now, will control N/V and pain. Also worried about productive cough. There are no signs of pneumonia on CXR or CT. Lung exam did not reveal any abnormal sounds. WBC is normal. Will monitor. For now, will give cough medicine for expectorant and to control cough. Pt at high risk for hernia from coughing. will discuss with her in Am. Labs in AM. time=60min
[2017-09-14] MEDS: D5W/0.45% NACL/KCL 20 MEQ 20 MEQ/1,000 ML BAG IV SCH (22:30)
[2017-09-14] MEDS: ZOFRAN IV SCH (23:30)
[2017-09-15 03:23] LABS: Basophils % (Auto) 0.5 % (0.0-1.8); Eosinophils # (Auto) 0.1 K/mm3 (0.0-0.4); Eosinophils % (Auto) 1.5 % (0.0-4.3); Hematocrit 37.1 % (30.3-42.9); Hemoglobin 12.3 gm/dl (10.1-14.3); Lymphocytes # (Auto) 1.5 K/mm3 (1.2-5.4); Lymphocytes % (Auto) 24.5 % (13.4-35.0); Mean Corpuscular HGB Conc 33 % (30-34); Mean Corpuscular Hemoglobin 26 pg (28-32); Mean Corpuscular Volume 79 fl (79-97); Monocytes # (Auto) 0.6 K/mm3 (0.0-0.8); Platelet Count 143 K/mm3 (140-440); Red Blood Count 4.73 M/mm3 (3.65-5.03); Red Cell Distribution Width 14.1 % (13.2-15.2)
[2017-09-15 03:41] LABS: Alanine Aminotransferase 119 units/L (7-56); Albumin 3.4 g/dL (3.9-5); BUN/Creatinine Ratio 15; Blood Urea Nitrogen 6 mg/dL (7-17); Calcium 8.6 mg/dL (8.4-10.2); Hemolysis Index 0
[2017-09-15] MEDS: ZOFRAN IV SCH (07:02)
[2017-09-15] MEDS: NOVOLOG SUB-Q SCH ×5 (07:05→22:30)
[2017-09-15] MEDS: D5W/0.45% NACL/KCL 20 MEQ 20 MEQ/1,000 ML BAG IV SCH ×3 (07:15→22:31)
[2017-09-15] MEDS ORDERED: NORVASC PO SCH ×2 (10:00→14:00)
[2017-09-15] MEDS: MORPHINE IV PRN (10:06)
[2017-09-15] MEDS ORDERED: ROBITUSSIN AC PO PRN (13:19)
--- NOTE | 2017-09-15 13:54 | Gastroenterology Consultation ---
History of Present Illness - Reason for Consult Consult date: 09/15/17 Abnormal LFTs Requesting physician: SRUTHI LEONARD - History of Present Illness The patient is a 52 yo female who underwent CCY for symptomatic gallstones on . She went home the same day, but had a fever and cough that night. She came back to the ER yesterday for intractable N/V. She had no blood in the emesis or stools. She had tried to eat a regular diet, but could not tolerate it. She had a CT and MRCP; there is a trace of fluid in the abdomen/paracolic gutter but no evidence of retained stones. There was no hx of dilated CBD or abnormal LFTs prior to the surgery; an IOC was not done, and may not have been possible as there was severe adhesions with the GB stuck to the liver and the cystic duct adhered to the CBD. The CBD was avoided by clipping the cystic duct high. Her LFTs have been relatively stable overnight and she has had no fever nor elevated WBC count here. She has no CP or severe SOB. She is tender at the umbilicus and the bilateral flanks, but only mildly in the RUQ. There is no family hx of liver disease, and the patient knows of no prior liver abnormalities in her labs. Past History Past Medical History: diabetes, hypertension Past Surgical History: cholecystectomy, Social history: denies: smoking, alcohol abuse Family history: no significant family history Medications and Allergies Allergies Allergy/AdvReac Type Severity Reaction Status Date / Time No Known Allergies Allergy Verified 09/10/17 13:14 Home Medications Medication Instructions Recorded Confirmed Last Taken Type Insulin Glargine [Lantus VIAL] 15 unit SUB-Q QHS 09/10/17 09/15/17 09/13/17 History amLODIPine [Norvasc] 5 mg PO DAILY 09/10/17 09/15/17 09/13/17 History metFORMIN [Glucophage] 500 mg PO DAILY 09/10/17 09/15/17 09/13/17 History Active Meds: Active Medications Acetaminophen (Tylenol) 650 mg PO Q4H PRN PRN Reason: Pain MILD(1-3)/Fever >100.5/[place] Acetaminophen/Hydrocodone Bitart ([place] 5/325) 2 each PO Q6H PRN PRN Reason: Pain, Moderate (4-6) Amlodipine Besylate (Norvasc) 5 mg PO QDAY ABRAHAM Bisacodyl (Dulcolax) 10 mg [place] QDAY PRN PRN Reason: Constipation unrelieved by MOM Hydralazine HCl (Apresoline) 5 mg IV Q4HR PRN PRN Reason: Hypertension Hydromorphone HCl (Dilaudid) 0.5 mg IV Q3H PRN PRN Reason: Pain , Severe (7-10) Potassium Chloride/Dextrose/Sod Cl (D5w/0.45% Nacl/Kcl 20 Meq) 20 meq in 1,000 mls @ 125 mls/hr IV DIRECT ABRAHAM Last Admin: 09/15/17 07:15 Dose: 100 mls/hr Insulin Aspart (Novolog) 0 units SUB-Q Q6HR ABRAHAM PRN Reason: Protocol Last Admin: 09/15/17 07:05 Dose: 2 units Ketorolac Tromethamine (Toradol) 30 mg IV Q6H [facility] [place] Stop: 09/20/17 13:59 Magnesium Hydroxide (Milk Of Magnesia) 30 ml PO Q4H PRN PRN Reason: Constipation Ondansetron HCl (Zofran) 8 mg IV Q8H PRN PRN Reason: Nausea Stop: 09/16/17 21:59 Pantoprazole Sodium (Protonix) 40 mg IV QDAY ABRAHAM Promethazine HCl (Phenergan) 12.5 mg PO Q6H [facility] Stop: 09/17/17 13:59 Pseudoephedrine/Acetam/Chlorphenir (Robitussin Ac) 15 ml PO Q4H PRN PRN Reason: Cough Medications reviewed and reconciled Review of Systems - Review of Systems All systems: negative (as noted in the RUQ) Exam - Constitutional Vital Signs: Temp Pulse Resp BP Pulse Ox 98.5 F 75 20 172/84 100 09/15/17 09:25 09/15/17 09:25 09/15/17 09:25 09/15/17 09:25 09/15/17 09:25 General appearance: mild distress - EENT Eyes: PERRL, EOM intact ENT: hearing intact, clear oral mucosa - Neck Neck: supple, normal ROM - Respiratory Respiratory effort: normal Respiratory: bilateral: CTA - Cardiovascular Rhythm: regular Heart Sounds: Present: S1 & S2 Extremities: no ischemia, No edema - Gastrointestinal General gastrointestinal: Present: soft, tender (RUQ and umbilicus, mild and post-surgery appropriate level), non-distended - Integumentary Integumentary: Present: clear, warm, dry - Neurologic Neurological: alert and oriented x3 - Labs CBC & Chem 7: 09/15/17 02:55 09/15/17 02:55 Lab Results: Laboratory Results - last 24 hr 09/14/17 09/14/17 09/14/17 13:26 13:26 13:26 WBC 6.5 RBC 5.02 Hgb 13.1 Hct 39.1 MCV 78 L MCH 26 L MCHC 34 RDW 14.0 Plt Count 126 L Lymph % (Auto) 20.0 [place] % (Auto) 7.2 Eos % (Auto) 1.3 Baso % (Auto) 0.4 Lymph # 1.3 [place] # 0.5 Eos # 0.1 Baso # 0.0 Seg Neutrophils % 71.1 H Seg Neutrophils # 4.6 Sodium 138 Potassium 3.8 Chloride 98.4 Carbon Dioxide 24 Anion Gap 19 BUN 6 L Creatinine 0.2 L Estimated GFR > 60 BUN/Creatinine Ratio 30 Glucose 129 H POC Glucose Hemoglobin A1c Calcium 9.0 Total Bilirubin 4.60 H Direct Bilirubin Indirect Bilirubin AST 81 H ALT 113 H Alkaline Phosphatase 134 H Total Protein 7.9 Albumin 3.4 L Albumin/Globulin Ratio 0.8 Lipase 20 HCG, Qual Negative Urine Color Urine Turbidity Urine pH Ur Specific [place] Urine Protein Urine Glucose (UA) Urine Ketones Urine Blood Urine Nitrite Urine Bilirubin Urine Ictotest Urine Urobilinogen Ur Leukocyte Esterase Urine WBC (Auto) Urine RBC (Auto) U Epithel Cells (Auto) Urine Bacteria (Auto) Urine Mucus 09/14/17 09/14/17 09/15/17 15:00 17:37 01:08 WBC RBC Hgb Hct MCV MCH MCHC RDW Plt Count Lymph % (Auto) [place] % (Auto) Eos % (Auto) Baso % (Auto) Lymph # [place] # Eos # Baso # Seg Neutrophils % Seg Neutrophils # Sodium Potassium Chloride Carbon Dioxide Anion Gap BUN Creatinine Estimated GFR BUN/Creatinine Ratio Glucose POC Glucose 134 H Hemoglobin A1c Calcium Total Bilirubin 4.60 H Direct Bilirubin 4.0 H Indirect Bilirubin 0.6 AST ALT Alkaline Phosphatase Total Protein Albumin Albumin/Globulin Ratio Lipase HCG, Qual Urine Color Sadie Urine Turbidity Clear Urine pH 7.0 Ur Specific [place] 1.013 Urine Protein <15 mg/dl Urine Glucose (UA) Neg Urine Ketones 80 Urine Blood Neg Urine Nitrite Neg Urine Bilirubin Sm Urine Ictotest Negative Urine Urobilinogen < 2.0 Ur Leukocyte Esterase Neg Urine WBC (Auto) 3.0 Urine RBC (Auto) 7.0 U Epithel Cells (Auto) 4.0 Urine Bacteria (Auto) 1+ Urine Mucus Few 09/15/17 09/15/17 09/15/17 02:55 02:55 05:47 WBC 6.0 RBC 4.73 Hgb 12.3 Hct 37.1 MCV 79 MCH 26 L MCHC 33 RDW 14.1 Plt Count 143 Lymph % (Auto) 24.5 [place] % (Auto) 10.0 H Eos % (Auto) 1.5 Baso % (Auto) 0.5 Lymph # 1.5 [place] # 0.6 Eos # 0.1 Baso # 0.0 Seg Neutrophils % 63.5 Seg Neutrophils # 3.8 Sodium 141 Potassium 4.4 Chloride 99.4 Carbon Dioxide 27 Anion Gap 19 BUN 6 L Creatinine 0.4 L D Estimated GFR > 60 BUN/Creatinine Ratio 15 Glucose 147 H POC Glucose 161 H Hemoglobin A1c Calcium 8.6 Total Bilirubin 4.70 H Direct Bilirubin Indirect Bilirubin AST 100 H ALT 119 H Alkaline Phosphatase 138 H Total Protein 6.7 Albumin 3.4 L Albumin/Globulin Ratio 1.0 Lipase HCG, Qual Urine Color Urine Turbidity Urine pH Ur Specific [place] Urine Protein Urine Glucose (UA) Urine Ketones Urine Blood Urine Nitrite Urine Bilirubin Urine Ictotest Urine Urobilinogen Ur Leukocyte Esterase Urine WBC (Auto) Urine RBC (Auto) U Epithel Cells (Auto) Urine Bacteria (Auto) Urine Mucus 09/15/17 08:26 WBC RBC Hgb Hct MCV MCH MCHC RDW Plt Count Lymph % (Auto) [place] % (Auto) Eos % (Auto) Baso % (Auto) Lymph # [place] # Eos # Baso # Seg Neutrophils % Seg Neutrophils # Sodium Potassium Chloride Carbon Dioxide Anion Gap BUN Creatinine Estimated GFR BUN/Creatinine Ratio Glucose POC Glucose Hemoglobin A1c 9.7 H Calcium Total Bilirubin Direct Bilirubin Indirect Bilirubin AST ALT Alkaline Phosphatase Total Protein Albumin Albumin/Globulin Ratio Lipase HCG, Qual Urine Color Urine Turbidity Urine pH Ur Specific [place] Urine Protein Urine Glucose (UA) Urine Ketones Urine Blood Urine Nitrite Urine Bilirubin Urine Ictotest Urine Urobilinogen Ur Leukocyte Esterase Urine WBC (Auto) Urine RBC (Auto) U Epithel Cells (Auto) Urine Bacteria (Auto) Urine Mucus Assessment and Plan - Patient Problems (1) Abnormal liver enzymes Current Visit: Yes Status: Acute Plan to address problem: - S/P CCY 4 days ago but retained stone, vascular clot (PV, HV), or duct transection all unlikely given radiographic and lab findings. - May have oozing from the ducts of Lushka or the liver bed itself given severe adhesions and need to peel GB away from liver wall. - May also have post-surgical edematous occlusion of the CBD, that would resolve with time. - Will check hepatitis serologies for completeness, and get a HIDA scan tomorrow to r/o significant leaking. - Will also place on Senna given significant constipation seen on CT. - Agree with holding abx unless leaking seen on HIDA, since afebrile with normal WBC. - ERCP tomorrow if obvious leak; will keep NPO after Mn.
--- NOTE | 2017-09-15 13:56 | Progress Note ---
Assessment and Plan Assessment and plan: 52-year-old with history of IDDM and Htn st post laparoscopic cholecystectomy 2 days ago here with worsening persistent nausea vomiting and abdominal pain after discharge...Vomiting about 4 to 6 times IDDM (insulin dependent diabetes mellitus) continue basal and bolus insulins, currently at goal HTN urgency -increase norvasc to 10mg, add lisinopril continue hydralazine IV PRN Abdominal pain and transaminitis for HIDA scan tomorrow and Hepatitis serology ordered sp recent lap roni DVT prophylaxis On Lovenox History Interval history: still c/o Nausea denies abdominal pain no fever, no cough, also c.o [facility] Hospitalist Physical - Constitutional Vitals: Temp Pulse Resp BP Pulse Ox 98.5 F 75 20 172/84 100 09/15/17 09:25 09/15/17 09:25 09/15/17 09:25 09/15/17 09:25 09/15/17 09:25 General appearance: Present: mild distress, well-nourished - EENT Eyes: Present: PERRL ENT: hearing intact - Neck Neck: Present: supple - Respiratory Respiratory effort: normal Respiratory: bilateral: CTA - Cardiovascular Rhythm: regular Heart Sounds: Present: S1 & S2 - Extremities Extremities: no ischemia Peripheral Pulses: within normal limits - Abdominal General gastrointestinal: soft, non-tender - Integumentary Integumentary: Present: clear, warm - Psychiatric Psychiatric: appropriate mood/affect, intact judgment & insight - Neurologic Neurologic: CNII-XII intact, moves all extremities Results - Labs CBC & Chem 7: 09/15/17 02:55 09/16/17 04:38 Labs: Laboratory Last Values WBC 6.0 K/mm3 (4.5-11.0) 09/15/17 02:55 RBC 4.73 M/mm3 (3.65-5.03) 09/15/17 02:55 Hgb 12.3 gm/dl (10.1-14.3) 09/15/17 02:55 Hct 37.1 % (30.3-42.9) 09/15/17 02:55 MCV 79 fl (79-97) 09/15/17 02:55 MCH 26 pg (28-32) L 09/15/17 02:55 MCHC 33 % (30-34) 09/15/17 02:55 RDW 14.1 % (13.2-15.2) 09/15/17 02:55 Plt Count 143 K/mm3 (140-440) 09/15/17 02:55 Lymph % (Auto) 24.5 % (13.4-35.0) 09/15/17 02:55 [place] % (Auto) 10.0 % (0.0-7.3) H 09/15/17 02:55 Eos % (Auto) 1.5 % (0.0-4.3) 09/15/17 02:55 Baso % (Auto) 0.5 % (0.0-1.8) 09/15/17 02:55 Lymph # 1.5 K/mm3 (1.2-5.4) 09/15/17 02:55 [place] # 0.6 K/mm3 (0.0-0.8) 09/15/17 02:55 Eos # 0.1 K/mm3 (0.0-0.4) 09/15/17 02:55 Baso # 0.0 K/mm3 (0.0-0.1) 09/15/17 02:55 Seg Neutrophils % 63.5 % (40.0-70.0) 09/15/17 02:55 Seg Neutrophils # 3.8 K/mm3 (1.8-7.7) 09/15/17 02:55 Sodium 141 mmol/L (137-145) 09/15/17 02:55 Potassium 4.4 mmol/L (3.6-5.0) 09/15/17 02:55 Chloride 99.4 mmol/L (98-107) 09/15/17 02:55 Carbon Dioxide 27 mmol/L (22-30) 09/15/17 02:55 Anion Gap 19 mmol/L 09/15/17 02:55 BUN 6 mg/dL (7-17) L 09/15/17 02:55 Creatinine 0.4 mg/dL (0.7-1.2) L D 09/15/17 02:55 Estimated GFR > 60 ml/min 09/15/17 02:55 BUN/Creatinine Ratio 15 % 09/15/17 02:55 Glucose 147 mg/dL (65-100) H 09/15/17 02:55 POC Glucose 161 (70-105) H 09/15/17 05:47 Hemoglobin A1c 9.7 % (4-6) H 09/15/17 08:26 Calcium 8.6 mg/dL (8.4-10.2) 09/15/17 02:55 Total Bilirubin 4.70 mg/dL (0.1-1.2) H 09/15/17 02:55 Direct Bilirubin 4.0 mg/dL (0-0.2) H 09/14/17 17:37 Indirect Bilirubin 0.6 mg/dL 09/14/17 17:37 AST 100 units/L (5-40) H 09/15/17 02:55 ALT 119 units/L (7-56) H 09/15/17 02:55 Alkaline Phosphatase 138 units/L (35-129) H 09/15/17 02:55 Total Protein 6.7 g/dL (6.3-8.2) 09/15/17 02:55 Albumin 3.4 g/dL (3.9-5) L 09/15/17 02:55 Albumin/Globulin Ratio 1.0 % 09/15/17 02:55 Lipase 20 units/L (13-60) 09/14/17 13:26 HCG, Qual Negative (Negative) 09/14/17 13:26 Urine Color Sadie (Yellow) 09/14/17 15:00 Urine Turbidity Clear (Clear) 09/14/17 15:00 Urine pH 7.0 (5.0-7.0) 09/14/17 15:00 Ur Specific [place] 1.013 (1.003-1.030) 09/14/17 15:00 Urine Protein <15 mg/dl mg/dL (Negative) 09/14/17 15:00 Urine Glucose (UA) Neg mg/dL (Negative) 09/14/17 15:00 Urine Ketones 80 mg/dL (Negative) 09/14/17 15:00 Urine Blood Neg (Negative) 09/14/17 15:00 Urine Nitrite Neg (Negative) 09/14/17 15:00 Urine Bilirubin Sm (Negative) 09/14/17 15:00 Urine Ictotest Negative (Negative) 09/14/17 15:00 Urine Urobilinogen < 2.0 mg/dL (<2.0) 09/14/17 15:00 Ur Leukocyte Esterase Neg (Negative) 09/14/17 15:00 Urine WBC (Auto) 3.0 /HPF (0.0-6.0) 09/14/17 15:00 Urine RBC (Auto) 7.0 /HPF (0.0-6.0) 09/14/17 15:00 U Epithel Cells (Auto) 4.0 /HPF (0-13.0) 09/14/17 15:00 Urine Bacteria (Auto) 1+ /HPF (Negative) 09/14/17 15:00 Urine Mucus Few /HPF 09/14/17 15:00 - Imaging and Cardiology MRI - abdomen: image reviewed (no biliary dilatation or obstruction)
[2017-09-15] MEDS: TORADOL IV SCH ×2 (13:57→20:55)
[2017-09-15] MEDS ORDERED: PROTONIX PO SCH (14:00)
[2017-09-15] MEDS: ZOFRAN IV PRN (14:19)
[2017-09-15] MEDS: SENOKOT S PO SCH (14:22)
[2017-09-15] MEDS: PROTONIX IV SCH (14:28)
[2017-09-15] MEDS: PHENERGAN PO SCH ×2 (14:32→20:55)
[2017-09-15] MEDS: NORVASC PO SCH (14:40)
--- NOTE | 2017-09-15 14:44 | Progress Note ---
Assessment and Plan - Patient Problems (1) Elevated bilirubin Current Visit: Yes Status: Acute Plan to address problem: Pt is clinically stable. Does not appear septic. Based on MRCP report, there is no obstruction. It does not appear that there is a bile leak based on CT and MRCP. LFT are unchanged. Discussed case with Dr. Hdz. Requested consult. Plan for HIDA and hep panel check. Also worried about productive cough. There are no signs of pneumonia on CXR or CT. Lung exam did not reveal any abnormal sounds. WBC is normal. Will monitor. For now, will give cough medicine for expectorant and to control cough. Will increase dose. Pt at high risk for hernia from coughing. will discuss with her in Am. Labs in AM. HIDA tomorrow time=20min Subjective Date of service: 09/15/17 Patient Reports: Positive: nausea, other (cough is no better. Still with nausea. Pain is centered around navel only. Back now hurts. ) Objective Vital Signs - 12hr 09/15/17 09/15/17 09/15/17 03:42 09:25 14:40 Temperature 98.5 F 98.5 F Pulse Rate 67 75 60 Respiratory 18 20 Rate Blood Pressure 175/97 172/93 Blood Pressure 172/84 [Right] O2 Sat by Pulse 99 100 Oximetry - General physical appearance well developed, well nourished, other (looks very uncomfortable. ) - Eyes normal occular movement, icteric - Respiratory normal expansion, normal respiratory effort, clear to auscultation - Abdomen soft, tender (only at umbilicus. Rest of abdomen is benign. ), bowel sounds hypoactive, not guarding, not rigid, surgical scars (well healed) - Integumentary no rash - Musculoskeletal other (tender in low back and upper buttocks. No midback tenderness. No CVA tenderness) - Labs 09/15/17 02:55 09/15/17 02:55 Diabetes panel 09/15/17 09/15/17 Range/Units 02:55 08:26 Sodium 141 (137-145) mmol/L Potassium 4.4 (3.6-5.0) mmol/L Chloride 99.4 (98-107) mmol/L Carbon Dioxide 27 (22-30) mmol/L BUN 6 L (7-17) mg/dL Creatinine 0.4 L D (0.7-1.2) mg/dL Glucose 147 H (65-100) mg/dL Hemoglobin A1c 9.7 H (4-6) % Calcium 8.6 (8.4-10.2) mg/dL AST 100 H (5-40) units/L ALT 119 H (7-56) units/L Alkaline Phosphatase 138 H (35-129) units/L Total Protein 6.7 (6.3-8.2) g/dL Albumin 3.4 L (3.9-5) g/dL Calcium panel 09/15/17 Range/Units 02:55 Calcium 8.6 (8.4-10.2) mg/dL Albumin 3.4 L (3.9-5) g/dL Pituitary panel 09/15/17 Range/Units 02:55 Sodium 141 (137-145) mmol/L Potassium 4.4 (3.6-5.0) mmol/L Chloride 99.4 (98-107) mmol/L Carbon Dioxide 27 (22-30) mmol/L BUN 6 L (7-17) mg/dL Creatinine 0.4 L D (0.7-1.2) mg/dL Glucose 147 H (65-100) mg/dL Calcium 8.6 (8.4-10.2) mg/dL Adrenal panel 09/14/17 09/15/17 Range/Units 17:37 02:55 Sodium 141 (137-145) mmol/L Potassium 4.4 (3.6-5.0) mmol/L Chloride 99.4 (98-107) mmol/L Carbon Dioxide 27 (22-30) mmol/L BUN 6 L (7-17) mg/dL Creatinine 0.4 L D (0.7-1.2) mg/dL Glucose 147 H (65-100) mg/dL Calcium 8.6 (8.4-10.2) mg/dL Total Bilirubin 4.60 H 4.70 H (0.1-1.2) mg/dL AST 100 H (5-40) units/L ALT 119 H (7-56) units/L Alkaline Phosphatase 138 H (35-129) units/L Total Protein 6.7 (6.3-8.2) g/dL Albumin 3.4 L (3.9-5) g/dL
[2017-09-15] MEDS: APRESOLINE IV PRN (18:01)
[2017-09-16] MEDS: NOVOLOG SUB-Q SCH ×4 (00:01→18:03)
[2017-09-16] MEDS: TORADOL IV SCH ×4 (02:15→20:31)
[2017-09-16] MEDS: SENOKOT S PO SCH ×2 (02:16→13:53)
[2017-09-16] MEDS: PHENERGAN PO SCH ×4 (02:16→22:39)
[2017-09-16] MEDS: APRESOLINE IV PRN ×2 (05:59→18:06)
[2017-09-16 06:33] LABS: Alanine Aminotransferase 201 units/L (7-56); Albumin 3.1 g/dL (3.9-5); BUN/Creatinine Ratio 10; Blood Urea Nitrogen 3 mg/dL (7-17); Calcium 8.9 mg/dL (8.4-10.2); Hemolysis Index 38
[2017-09-16 06:48] LABS: Hepatitis A Antibody IgM Non-Reactive (NonReactive); Hepatitis B Core IgM Non-Reactive (NonReactive); Hepatitis B Surface Antigen Non-Reactive (Negative); Hepatitis C Virus Antibody Non-Reactive (NonReactive)
[2017-09-16] MEDS: D5W/0.45% NACL/KCL 20 MEQ 20 MEQ/1,000 ML BAG IV SCH ×2 (08:21→18:39)
--- NOTE | 2017-09-16 10:50 | Progress Note ---
Assessment and Plan - Patient Problems (1) Elevated bilirubin Current Visit: Yes Status: Acute Plan to address problem: Pt is clinically stable. Does not appear septic. Plan for HIDA today. hep panel checked today. Appreciate GI consult Pt at high risk for hernia from coughing. Time=20min (2) Productive cough Current Visit: Yes Status: Acute Plan to address problem: Also worried about productive cough. There are no signs of pneumonia on CXR or CT. Lung exam did not reveal any abnormal sounds. WBC is normal. Will monitor. Medicine not helping. Will change to Tessalon pearls and guaifenesin. Will discuss with hospitalist if pulmonary consult would be helpful. (3) Thrush, oral Current Visit: Yes Status: Acute Plan to address problem: will start Nystatin for 7 days. Subjective Date of service: 09/16/17 Patient Reports: Positive: other (No change in symptoms. now with headache and sore tongue. ) Objective Vital Signs - 12hr 09/16/17 09/16/17 09/16/17 02:18 04:26 07:46 Temperature 98.2 F 98.3 F 98.7 F Pulse Rate 67 67 101 H Respiratory 18 Rate Blood Pressure 172/87 135/76 Blood Pressure 145/78 [Right] O2 Sat by Pulse 99 95 Oximetry 09/16/17 07:47 Temperature Pulse Rate 102 H Respiratory Rate Blood Pressure Blood Pressure [Right] O2 Sat by Pulse 100 Oximetry - General physical appearance well developed, well nourished, other (appears uncomfortable) - Eyes normal occular movement, icteric - ENT other (mild patches of erythema noted on tongue as well as white coat) - Respiratory normal expansion, clear to auscultation - Abdomen soft, tender (at umbilicus and epigastric areas only.), not distended, not guarding, not rigid, surgical scars (healing well without signs of infection) - Integumentary no rash - Labs 09/15/17 02:55 09/16/17 04:38 Diabetes panel 09/15/17 09/16/17 Range/Units 08:26 04:38 Sodium 135 L (137-145) mmol/L Potassium 3.9 (3.6-5.0) mmol/L Chloride 96.8 L (98-107) mmol/L Carbon Dioxide 23 (22-30) mmol/L BUN 3 L (7-17) mg/dL Creatinine 0.3 L (0.7-1.2) mg/dL Glucose 204 H (65-100) mg/dL Hemoglobin A1c 9.7 H (4-6) % Calcium 8.9 (8.4-10.2) mg/dL AST 170 H (5-40) units/L ALT 201 H (7-56) units/L Alkaline Phosphatase 140 H (35-129) units/L Total Protein 7.3 (6.3-8.2) g/dL Albumin 3.1 L (3.9-5) g/dL Calcium panel 09/16/17 Range/Units 04:38 Calcium 8.9 (8.4-10.2) mg/dL Albumin 3.1 L (3.9-5) g/dL Pituitary panel 09/16/17 Range/Units 04:38 Sodium 135 L (137-145) mmol/L Potassium 3.9 (3.6-5.0) mmol/L Chloride 96.8 L (98-107) mmol/L Carbon Dioxide 23 (22-30) mmol/L BUN 3 L (7-17) mg/dL Creatinine 0.3 L (0.7-1.2) mg/dL Glucose 204 H (65-100) mg/dL Calcium 8.9 (8.4-10.2) mg/dL Adrenal panel 09/16/17 Range/Units 04:38 Sodium 135 L (137-145) mmol/L Potassium 3.9 (3.6-5.0) mmol/L Chloride 96.8 L (98-107) mmol/L Carbon Dioxide 23 (22-30) mmol/L BUN 3 L (7-17) mg/dL Creatinine 0.3 L (0.7-1.2) mg/dL Glucose 204 H (65-100) mg/dL Calcium 8.9 (8.4-10.2) mg/dL Total Bilirubin 3.60 H (0.1-1.2) mg/dL AST 170 H (5-40) units/L ALT 201 H (7-56) units/L Alkaline Phosphatase 140 H (35-129) units/L Total Protein 7.3 (6.3-8.2) g/dL Albumin 3.1 L (3.9-5) g/dL
[2017-09-16] MEDS: PROTONIX IV SCH (12:29)
[2017-09-16] MEDS: NORVASC PO SCH (12:29)
[2017-09-16] MEDS: ZESTRIL PO SCH (12:29)
[2017-09-16] MEDS: ROBITUSSIN PO SCH ×3 (13:43→22:39)
[2017-09-16] MEDS: TESSALON PERLES PO SCH ×2 (13:54→22:19)
--- NOTE | 2017-09-16 13:54 | Nuclear Medicine Report ---
HEPATOBILIARY SCAN: History: Abnormal liver function tests, evaluate for biliary leak. Following the injection of the radionuclide, serial scanning was obtained over the right upper quadrant. Initial imaging of the liver demonstrates a relatively normal activity pattern. Progressive concentration of the radionuclide in the bile ducts and small bowel is identified within a normal time period. Cholecystectomy changes are noted. There is no evidence for biliary leak. Please note that contamination is identified on 5 of the 12 images. Some of these images demonstrate contamination overlying the liver hilum and some outside of the liver. This was residual radiotracer within the patient's IV. The patient kept moving the upper extremity IV over the [id number] throughout the examination. IMPRESSION: No biliary leak is identified. Normal exam with contamination from the IV as described above.
[2017-09-16] MEDS: NYSTATIN PO SCH ×3 (14:00→22:18)
--- NOTE | 2017-09-16 16:13 | Event Note ---
Date: 09/16/17 Routine check. Pt looked better! Able to tolerate a small amount of liquids. Main complaint of pain was headache. Discussed HIDA results. Good to see that she was looking better. Plan: 1) try fioricet for headache 2) scopolamine for N/V 3) otherwise continue current plan
--- NOTE | 2017-09-16 16:17 | Progress Note ---
Assessment and Plan Assessment and plan: 52-year-old with history of IDDM and Htn st post laparoscopic cholecystectomy 2 days ago here with worsening persistent nausea vomiting and abdominal pain after discharge..Also cough productive of yellow sputum and Fever for 2 days.Vomiting about 4 to 6 times IDDM (insulin dependent diabetes mellitus) continue basal and bolus insulins, currently at goal HTN urgency optimize BP meds continue hydralazine IV PRN Abdominal pain and transaminitis sp recent lap roni fup Hepatitis serology HIDA scan was negative -will advance diet, and obtain NM gastric emptying study DVT prophylaxis On Lovenox History Interval history: still c/o Nausea denies abdominal pain no fever, no cough, also c.o [facility] Hospitalist Physical - Physical exam Narrative exam: General appearance: Present: mild distress, well-nourished - EENT Eyes: Present: PERRL ENT: hearing intact - Neck Neck: Present: supple - Respiratory Respiratory effort: normal Respiratory: bilateral: CTA - Cardiovascular Rhythm: regular Heart Sounds: Present: S1 & S2 - Extremities Extremities: no ischemia Peripheral Pulses: within normal limits - Abdominal General gastrointestinal: soft, non-tender - Integumentary Integumentary: Present: clear, warm - Psychiatric Psychiatric: appropriate mood/affect, intact judgment & insight - Neurologic Neurologic: CNII-XII intact, moves all extremities - Constitutional Vitals: Temp Pulse Resp BP Pulse Ox 98.7 F 102 H 18 135/76 100 09/16/17 07:46 09/16/17 07:47 09/16/17 07:46 09/16/17 07:46 09/16/17 07:47 General appearance: Present: mild distress, well-nourished Results - Labs CBC & Chem 7: 09/15/17 02:55 09/16/17 04:38 Labs: Laboratory Last Values WBC 6.0 K/mm3 (4.5-11.0) 09/15/17 02:55 RBC 4.73 M/mm3 (3.65-5.03) 09/15/17 02:55 Hgb 12.3 gm/dl (10.1-14.3) 09/15/17 02:55 Hct 37.1 % (30.3-42.9) 09/15/17 02:55 MCV 79 fl (79-97) 09/15/17 02:55 MCH 26 pg (28-32) L 09/15/17 02:55 MCHC 33 % (30-34) 09/15/17 02:55 RDW 14.1 % (13.2-15.2) 09/15/17 02:55 Plt Count 143 K/mm3 (140-440) 09/15/17 02:55 Lymph % (Auto) 24.5 % (13.4-35.0) 09/15/17 02:55 [place] % (Auto) 10.0 % (0.0-7.3) H 09/15/17 02:55 Eos % (Auto) 1.5 % (0.0-4.3) 09/15/17 02:55 Baso % (Auto) 0.5 % (0.0-1.8) 09/15/17 02:55 Lymph # 1.5 K/mm3 (1.2-5.4) 09/15/17 02:55 [place] # 0.6 K/mm3 (0.0-0.8) 09/15/17 02:55 Eos # 0.1 K/mm3 (0.0-0.4) 09/15/17 02:55 Baso # 0.0 K/mm3 (0.0-0.1) 09/15/17 02:55 Seg Neutrophils % 63.5 % (40.0-70.0) 09/15/17 02:55 Seg Neutrophils # 3.8 K/mm3 (1.8-7.7) 09/15/17 02:55 Sodium 135 mmol/L (137-145) L 09/16/17 04:38 Potassium 3.9 mmol/L (3.6-5.0) 09/16/17 04:38 Chloride 96.8 mmol/L (98-107) L 09/16/17 04:38 Carbon Dioxide 23 mmol/L (22-30) 09/16/17 04:38 Anion Gap 19 mmol/L 09/16/17 04:38 BUN 3 mg/dL (7-17) L 09/16/17 04:38 Creatinine 0.3 mg/dL (0.7-1.2) L 09/16/17 04:38 Estimated GFR > 60 ml/min 09/16/17 04:38 BUN/Creatinine Ratio 10 % 09/16/17 04:38 Glucose 204 mg/dL (65-100) H 09/16/17 04:38 POC Glucose 282 (70-105) H 09/15/17 22:04 Hemoglobin A1c 9.7 % (4-6) H 09/15/17 08:26 Calcium 8.9 mg/dL (8.4-10.2) 09/16/17 04:38 Total Bilirubin 3.60 mg/dL (0.1-1.2) H 09/16/17 04:38 Direct Bilirubin 4.0 mg/dL (0-0.2) H 09/14/17 17:37 Indirect Bilirubin 0.6 mg/dL 09/14/17 17:37 AST 170 units/L (5-40) H 09/16/17 04:38 ALT 201 units/L (7-56) H 09/16/17 04:38 Alkaline Phosphatase 140 units/L (35-129) H 09/16/17 04:38 Total Protein 7.3 g/dL (6.3-8.2) 09/16/17 04:38 Albumin 3.1 g/dL (3.9-5) L 09/16/17 04:38 Albumin/Globulin Ratio 0.7 % 09/16/17 04:38 Lipase 20 units/L (13-60) 09/14/17 13:26 HCG, Qual Negative (Negative) 09/14/17 13:26 Urine Color Sadie (Yellow) 09/14/17 15:00 Urine Turbidity Clear (Clear) 09/14/17 15:00 Urine pH 7.0 (5.0-7.0) 09/14/17 15:00 Ur Specific [place] 1.013 (1.003-1.030) 09/14/17 15:00 Urine Protein <15 mg/dl mg/dL (Negative) 09/14/17 15:00 Urine Glucose (UA) Neg mg/dL (Negative) 09/14/17 15:00 Urine Ketones 80 mg/dL (Negative) 09/14/17 15:00 Urine Blood Neg (Negative) 09/14/17 15:00 Urine Nitrite Neg (Negative) 09/14/17 15:00 Urine Bilirubin Sm (Negative) 09/14/17 15:00 Urine Ictotest Negative (Negative) 09/14/17 15:00 Urine Urobilinogen < 2.0 mg/dL (<2.0) 09/14/17 15:00 Ur Leukocyte Esterase Neg (Negative) 09/14/17 15:00 Urine WBC (Auto) 3.0 /HPF (0.0-6.0) 09/14/17 15:00 Urine RBC (Auto) 7.0 /HPF (0.0-6.0) 09/14/17 15:00 U Epithel Cells (Auto) 4.0 /HPF (0-13.0) 09/14/17 15:00 Urine Bacteria (Auto) 1+ /HPF (Negative) 09/14/17 15:00 Urine Mucus Few /HPF 09/14/17 15:00 Hepatitis A IgM Ab Non-reactive (NonReactive) 09/16/17 04:38 Hep Bs Antigen Non-reactive (Negative) 09/16/17 04:38 Hep B Core IgM Ab Non-reactive (NonReactive) 09/16/17 04:38 Hepatitis C Antibody Non-reactive (NonReactive) 09/16/17 04:38
[2017-09-16] MEDS ORDERED: FIORICET PO ONE (16:30)
[2017-09-16] MEDS: TRANSDERM-SCOP TD SCH (16:46)
[2017-09-16] MEDS ORDERED: IMITREX SUB-Q PRN (18:03)
--- NOTE | 2017-09-16 20:30 | Gastroenterology Progress Note ---
Assessment and Plan - Patient Problems (1) Abnormal liver enzymes Current Visit: Yes Status: Acute Plan to address problem: - S/P CCY 4 days ago but retained stone, vascular clot (PV, HV), or duct transection all unlikely given radiographic and lab findings. - May have oozing from the ducts of [place] or the liver bed itself given severe adhesions and need to peel GB away from liver wall. - May also have post-surgical edematous occlusion of the CBD, that would resolve with time. - Hepatitis serologies and HIDA negative. - Will also continue Senna given significant constipation seen on CT. - Agree with holding abx unless leaking seen on HIDA, since afebrile with normal WBC. - Will advance diet since clinically much better. Subjective Date of service: 09/16/17 Principal diagnosis: Abdominal Pain Interval history: The HIDA scan was negative, and the patient is clinically improved. Minimal N/ V and wants to advance diet. No fevers or chills. Objective - Constitutional Vitals: Temp Pulse Resp BP Pulse Ox 98.7 F 102 H 18 188/95 100 09/16/17 07:46 09/16/17 07:47 09/16/17 07:46 09/16/17 18:06 09/16/17 07:47 General appearance: no acute distress - Respiratory Respiratory effort: normal Respiratory: bilateral: CTA - Cardiovascular Rhythm: regular Heart Sounds: Present: S1 & S2 - Gastrointestinal General gastrointestinal: Present: soft, tender (Mild and improved), non- distended - Labs CBC & Chem 7: 09/15/17 02:55 09/16/17 04:38 Labs: Laboratory Results - last 24 hr 09/15/17 09/15/17 09/15/17 13:06 17:45 22:04 Sodium Potassium Chloride Carbon Dioxide Anion Gap BUN Creatinine Estimated GFR BUN/Creatinine Ratio Glucose POC Glucose 179 H 177 H 282 H Calcium Total Bilirubin AST ALT Alkaline Phosphatase Total Protein Albumin Albumin/Globulin Ratio Hepatitis A IgM Ab Hep Bs Antigen Hep B Core IgM Ab Hepatitis C Antibody 09/16/17 09/16/17 04:38 04:38 Sodium 135 L Potassium 3.9 Chloride 96.8 L Carbon Dioxide 23 Anion Gap 19 BUN 3 L Creatinine 0.3 L Estimated GFR > 60 BUN/Creatinine Ratio 10 Glucose 204 H POC Glucose Calcium 8.9 Total Bilirubin 3.60 H AST 170 H ALT 201 H Alkaline Phosphatase 140 H Total Protein 7.3 Albumin 3.1 L Albumin/Globulin Ratio 0.7 Hepatitis A IgM Ab Non-reactive Hep Bs Antigen Non-reactive Hep B Core IgM Ab Non-reactive Hepatitis C Antibody Non-reactive
[2017-09-16] MEDS: ZOFRAN IV PRN (20:47)
[2017-09-16] MEDS: HEPARIN SUB-Q SCH (22:20)
[2017-09-16] MEDS: LEVEMIR SUB-Q SCH (22:27)
[2017-09-17] MEDS: TORADOL IV SCH ×4 (01:51→20:09)
[2017-09-17] MEDS: SENOKOT S PO SCH ×2 (01:52→16:48)
[2017-09-17] MEDS: D5W/0.45% NACL/KCL 20 MEQ 20 MEQ/1,000 ML BAG IV SCH ×2 (03:30→13:46)
[2017-09-17] MEDS: ROBITUSSIN PO SCH ×4 (04:19→23:46)
[2017-09-17] MEDS: PHENERGAN PO SCH (04:19)
[2017-09-17 05:06] LABS: Basophils % (Auto) 0.4 % (0.0-1.8); Eosinophils # (Auto) 0.1 K/mm3 (0.0-0.4); Hematocrit 38.3 % (30.3-42.9); Lymphocytes # (Auto) 1.4 K/mm3 (1.2-5.4); Mean Corpuscular HGB Conc 34 % (30-34); Mean Corpuscular Hemoglobin 26 pg (28-32); Mean Corpuscular Volume 78 fl (79-97); Monocytes # (Auto) 0.7 K/mm3 (0.0-0.8); Monocytes % (Auto) 6.1 % (0.0-7.3); Platelet Count 194 K/mm3 (140-440); Red Blood Count 4.91 M/mm3 (3.65-5.03); Red Cell Distribution Width 14.1 % (13.2-15.2)
[2017-09-17 05:24] LABS: Alanine Aminotransferase 185 units/L (7-56); Albumin 3.5 g/dL (3.9-5); BUN/Creatinine Ratio 8; Blood Urea Nitrogen 3 mg/dL (7-17); Hemolysis Index 5
[2017-09-17] MEDS: NOVOLOG SUB-Q SCH ×4 (06:25→18:02)
[2017-09-17] MEDS: TESSALON PERLES PO SCH ×3 (06:26→23:48)
[2017-09-17] MEDS: HEPARIN SUB-Q SCH ×3 (06:27→23:48)
[2017-09-17] MEDS: APRESOLINE IV PRN (10:10)
[2017-09-17] MEDS: NORVASC PO SCH (10:14)
--- NOTE | 2017-09-17 10:20 | Progress Note ---
Assessment and Plan Assessment and plan: 52-year-old with history of IDDM and Htn s/p laparoscopic cholecystectomy 2 days ago here with worsening persistent nausea vomiting and abdominal pain Also cough productive of yellow sputum and Fever for 2 days.Vomiting about 4 to 6 times --Type 2 diabetes mellitus -uncontrolled Continue Accu-Chek sliding scale coverage , ADA diet and increase Lantus insulin , add NovoLog before every meal Closely monitor --Malignant hypertension ; Uncontrolled blood pressures , partly secondary to pain and discomfort Had low-dose hydralazine and when necessary hydralazine optimize BP meds --sp recent lap roni Continue postoperative care per surgery --Low-grade fever/mild cough/possible flu Symptomatic management, influenza screen Chest x-ray to rule out bronchitis/pneumonia, reduce IV fluids, consider a course of antibiotics if chest x-ray is abnormal --Transaminitis ; Slowly trending down , Hepatitis panel, HIDA scan negative --Possible gastroparesis Pending gastric emptying study, and CT abdomen and pelvis Consider gastric motility agents needed -- advance diet as tolerated GI and surgery recommendations noted and appreciated Plan of care discussed with the patient, family members at the bedside and the nurse. Answered all the questions History Interval history: Patient seen and evaluated this afternoon medical records reviewed Is taking contrast for pending CT abdomen and pelvis Complaints of vague abdominal discomfort, feels constipated patient wants minimal or some stool softener No new events reported by the nursing staff Vital signs reviewed Hospitalist Physical - Constitutional Vitals: Temp Pulse Resp BP Pulse Ox 98.8 F 87 18 172/93 97 09/17/17 07:52 09/17/17 10:10 09/17/17 07:52 09/17/17 10:10 09/17/17 07:52 General appearance: Present: mild distress, well-nourished - EENT Eyes: Present: PERRL, EOM intact - Neck Neck: Present: supple, normal ROM - Respiratory Respiratory effort: normal Respiratory: bilateral: diminished, negative: rales, rhonchi, wheezing - Cardiovascular Rhythm: regular Heart Sounds: Present: S1 & S2 - Extremities Extremities: no ischemia, No edema - Abdominal General gastrointestinal: soft, tender (I'll tenderness no guarding no rigidity) , non-distended, hypoactive bowel sounds - Integumentary Integumentary: Present: clear, warm - Psychiatric Psychiatric: appropriate mood/affect, cooperative - Neurologic Neurologic: CNII-XII intact, moves all extremities Results - Labs CBC & Chem 7: 09/17/17 04:45 09/17/17 04:45 Labs: Laboratory Last Values WBC 10.8 K/mm3 (4.5-11.0) 09/17/17 04:45 RBC 4.91 M/mm3 (3.65-5.03) 09/17/17 04:45 Hgb 13.0 gm/dl (10.1-14.3) 09/17/17 04:45 Hct 38.3 % (30.3-42.9) 09/17/17 04:45 MCV 78 fl (79-97) L 09/17/17 04:45 MCH 26 pg (28-32) L 09/17/17 04:45 MCHC 34 % (30-34) 09/17/17 04:45 RDW 14.1 % (13.2-15.2) 09/17/17 04:45 Plt Count 194 K/mm3 (140-440) 09/17/17 04:45 Lymph % (Auto) 13.0 % (13.4-35.0) L 09/17/17 04:45 [place] % (Auto) 6.1 % (0.0-7.3) 09/17/17 04:45 Eos % (Auto) 1.0 % (0.0-4.3) 09/17/17 04:45 Baso % (Auto) 0.4 % (0.0-1.8) 09/17/17 04:45 Lymph # 1.4 K/mm3 (1.2-5.4) 09/17/17 04:45 [place] # 0.7 K/mm3 (0.0-0.8) 09/17/17 04:45 Eos # 0.1 K/mm3 (0.0-0.4) 09/17/17 04:45 Baso # 0.0 K/mm3 (0.0-0.1) 09/17/17 04:45 Seg Neutrophils % 79.5 % (40.0-70.0) H 09/17/17 04:45 Seg Neutrophils # 8.6 K/mm3 (1.8-7.7) H 09/17/17 04:45 Sodium 138 mmol/L (137-145) 09/17/17 04:45 Potassium 3.7 mmol/L (3.6-5.0) 09/17/17 04:45 Chloride 99.6 mmol/L (98-107) 09/17/17 04:45 Carbon Dioxide 21 mmol/L (22-30) L 09/17/17 04:45 Anion Gap 21 mmol/L 09/17/17 04:45 BUN 3 mg/dL (7-17) L 09/17/17 04:45 Creatinine 0.4 mg/dL (0.7-1.2) L 09/17/17 04:45 Estimated GFR > 60 ml/min 09/17/17 04:45 BUN/Creatinine Ratio 8 % 09/17/17 04:45 Glucose 284 mg/dL (65-100) H 09/17/17 04:45 POC Glucose 291 (70-105) H 09/17/17 06:15 Hemoglobin A1c 9.7 % (4-6) H 09/15/17 08:26 Calcium 9.0 mg/dL (8.4-10.2) 09/17/17 04:45 Total Bilirubin 4.20 mg/dL (0.1-1.2) H 09/17/17 04:45 Direct Bilirubin 4.0 mg/dL (0-0.2) H 09/14/17 17:37 Indirect Bilirubin 0.6 mg/dL 09/14/17 17:37 AST 123 units/L (5-40) H 09/17/17 04:45 ALT 185 units/L (7-56) H 09/17/17 04:45 Alkaline Phosphatase 171 units/L (35-129) H 09/17/17 04:45 Total Protein 7.7 g/dL (6.3-8.2) 09/17/17 04:45 Albumin 3.5 g/dL (3.9-5) L 09/17/17 04:45 Albumin/Globulin Ratio 0.8 % 09/17/17 04:45 Lipase 20 units/L (13-60) 09/14/17 13:26 HCG, Qual Negative (Negative) 09/14/17 13:26 Urine Color Sadie (Yellow) 09/14/17 15:00 Urine Turbidity Clear (Clear) 09/14/17 15:00 Urine pH 7.0 (5.0-7.0) 09/14/17 15:00 Ur Specific [place] 1.013 (1.003-1.030) 09/14/17 15:00 Urine Protein <15 mg/dl mg/dL (Negative) 09/14/17 15:00 Urine Glucose (UA) Neg mg/dL (Negative) 09/14/17 15:00 Urine Ketones 80 mg/dL (Negative) 09/14/17 15:00 Urine Blood Neg (Negative) 09/14/17 15:00 Urine Nitrite Neg (Negative) 09/14/17 15:00 Urine Bilirubin Sm (Negative) 09/14/17 15:00 Urine Ictotest Negative (Negative) 09/14/17 15:00 Urine Urobilinogen < 2.0 mg/dL (<2.0) 09/14/17 15:00 Ur Leukocyte Esterase Neg (Negative) 09/14/17 15:00 Urine WBC (Auto) 3.0 /HPF (0.0-6.0) 09/14/17 15:00 Urine RBC (Auto) 7.0 /HPF (0.0-6.0) 09/14/17 15:00 U Epithel Cells (Auto) 4.0 /HPF (0-13.0) 09/14/17 15:00 Urine Bacteria (Auto) 1+ /HPF (Negative) 09/14/17 15:00 Urine Mucus Few /HPF 09/14/17 15:00 Hepatitis A IgM Ab Non-reactive (NonReactive) 09/16/17 04:38 Hep Bs Antigen Non-reactive (Negative) 09/16/17 04:38 Hep B Core IgM Ab Non-reactive (NonReactive) 09/16/17 04:38 Hepatitis C Antibody Non-reactive (NonReactive) 09/16/17 04:38
--- NOTE | 2017-09-17 11:37 | Progress Note ---
Assessment and Plan - Patient Problems (1) Elevated bilirubin Current Visit: Yes Status: Acute Plan to address problem: Pt is clinically stable. Appears to fluctuate. Will discuss with Gi about repeating CT with contrast. Pt at high risk for hernia from coughing. Time=20min (2) Nausea & vomiting Current Visit: Yes Status: Acute Qualifiers: Vomiting Intractability: unspecified Plan to address problem: As patient continues to be nauseated and now refusing meds, will place NGT to see if that helps. Will also switch phenergan to SD Interestingly, she reports that she started feeling sick to her stomach prior to surgery. (3) Productive cough Current Visit: Yes Status: Acute Plan to address problem: Also worried about productive cough. There are no signs of pneumonia on CXR or CT. Lung exam did not reveal any abnormal sounds. WBC is normal. Will monitor. Medicine not helping. Will change to Tessalon perles and guaifenesin. Will discuss with hospitalist if pulmonary consult would be helpful. (4) Thrush, oral Current Visit: Yes Status: Acute Plan to address problem: will start Nystatin for 7 days. I encouraged her to at least use the Nystatin if not the other meds. Subjective Date of service: 09/17/17 Patient Reports: Positive: still having pain (in same areas. ), nausea ( continues to be main problem.), vomiting, other (headache is a little better.) Objective Vital Signs - 12hr 09/17/17 09/17/17 09/17/17 04:50 07:52 10:10 Temperature 97.5 F L 98.8 F Pulse Rate 8 L 87 87 Respiratory 18 18 Rate Blood Pressure 172/93 172/93 Blood Pressure 89/47 [Left] O2 Sat by Pulse 100 97 Oximetry - General physical appearance other (clearly uncomfortable) - Eyes normal occular movement - Respiratory normal expansion, normal respiratory effort, clear to auscultation, other ( cough persists) - Abdomen soft, tender (only in umbilical area and epigastric area), bowel sounds hypoactive, not distended, not guarding, not rigid, surgical scars (healing well ) - Psychiatric oriented to time, oriented to person, oriented to place, speech is normal, memory intact - Labs 09/17/17 04:45 09/17/17 04:45 Diabetes panel 09/17/17 Range/Units 04:45 Sodium 138 (137-145) mmol/L Potassium 3.7 (3.6-5.0) mmol/L Chloride 99.6 (98-107) mmol/L Carbon Dioxide 21 L (22-30) mmol/L BUN 3 L (7-17) mg/dL Creatinine 0.4 L (0.7-1.2) mg/dL Glucose 284 H (65-100) mg/dL Calcium 9.0 (8.4-10.2) mg/dL AST 123 H (5-40) units/L ALT 185 H (7-56) units/L Alkaline Phosphatase 171 H (35-129) units/L Total Protein 7.7 (6.3-8.2) g/dL Albumin 3.5 L (3.9-5) g/dL Calcium panel 09/17/17 Range/Units 04:45 Calcium 9.0 (8.4-10.2) mg/dL Albumin 3.5 L (3.9-5) g/dL Pituitary panel 09/17/17 Range/Units 04:45 Sodium 138 (137-145) mmol/L Potassium 3.7 (3.6-5.0) mmol/L Chloride 99.6 (98-107) mmol/L Carbon Dioxide 21 L (22-30) mmol/L BUN 3 L (7-17) mg/dL Creatinine 0.4 L (0.7-1.2) mg/dL Glucose 284 H (65-100) mg/dL Calcium 9.0 (8.4-10.2) mg/dL Adrenal panel 09/17/17 Range/Units 04:45 Sodium 138 (137-145) mmol/L Potassium 3.7 (3.6-5.0) mmol/L Chloride 99.6 (98-107) mmol/L Carbon Dioxide 21 L (22-30) mmol/L BUN 3 L (7-17) mg/dL Creatinine 0.4 L (0.7-1.2) mg/dL Glucose 284 H (65-100) mg/dL Calcium 9.0 (8.4-10.2) mg/dL Total Bilirubin 4.20 H (0.1-1.2) mg/dL AST 123 H (5-40) units/L ALT 185 H (7-56) units/L Alkaline Phosphatase 171 H (35-129) units/L Total Protein 7.7 (6.3-8.2) g/dL Albumin 3.5 L (3.9-5) g/dL
[2017-09-17] MEDS: ZESTRIL PO SCH (11:52)
[2017-09-17] MEDS: PROTONIX PO SCH (11:52)
[2017-09-17] MEDS: NYSTATIN PO SCH ×4 (11:52→23:49)
[2017-09-17] MEDS: PHENERGAN PR SCH ×2 (12:14→18:02)
[2017-09-17] MEDS: TYLENOL PO PRN ×2 (13:45→23:44)
--- NOTE | 2017-09-17 15:39 | XRay Report ---
XRAY CHEST TWO VIEWS: 09/17/17 17:55:00 CLINICAL: Cough. COMPARISON: 09/14/17 FINDINGS: Stable mild cardiomegaly. The lungs are normally expanded and clear.Scoliosis and mild degenerative change in the spine. IMPRESSION: Mild cardiomegaly but no CHF or pneumonia.
--- NOTE | 2017-09-17 17:35 | Cat Scan Report ---
FINAL REPORT EXAM: CT ABDOMEN PELVIS W CON HISTORY: elevated LFTs, nausea, epigastric/umbilical pain , prior cholecystectomy TECHNIQUE: CT examination of the ABDOMEN after IV contrast CT examination of the PELVIS after IV contrast PRIORS: MRCP 09/14/[address] 09/14/2017 FINDINGS: Linear scar or atelectasis unchanged in the lung bases. No pleural effusion. Nonspecific diffusely decreased density of liver parenchyma may reflect fatty infiltration. No visualized focal liver lesion. Surgically absent gallbladder with clips again noted in the gallbladder fossa. Again present is fat stranding in the gallbladder fossa with a small focal fluid collection measuring 10 x 15 mm. Previous dimension 10 x 15 mm. This may again be a small postoperative hematoma, seroma, or biloma. Small unchanged abscess remains possible but this collection contains no air bubbles. Lack of change favors hematoma. Slight reservoir effect likely again within normal limits in the common bile duct. Normal-appearing adrenals, pancreas, and spleen. Intact normal caliber abdominal aorta with slight calcified atherosclerotic plaque. Normal caliber IVC. No retroperitoneal adenopathy. No mesenteric mass. Stable probable cyst is again small in the right kidney. Otherwise normal-appearing kidneys and ureters. Very small fat containing umbilical hernia. Normal-appearing stomach and duodenum. No small bowel distention in the abdomen and pelvis. Slight pelvic free fluid is decreased. This may be residual postoperative fluid. Normal-appearing urinary bladder and rectum. Uterus not visible. No adnexal abnormality. Once again, there segmental decompression of the distal sigmoid colon which may be physiologic peristalsis or artifact of decompression. The differential again includes a small colonic lesion at the rectosigmoid junction No gross ascites, free air, or colonic distention. Normal-appearing cecum, terminal ileum, and appendix. IMPRESSION: Segmental decompression and possible wall thickening in the rectosigmoid junction may be physiologic peristalsis or artifact of decompression. This persist from prior exam in differential again includes a small colonic lesion at the rectosigmoid junction Unchanged linear scar versus atelectasis in both lung bases Hepatic steatosis Recent cholecystectomy. Small fluid collection is unchanged in the gallbladder fossa which likely reflects postoperative hematoma or seroma. Differential includes again small biloma or abscess but no air bubbles are noted in this collection. Decreased pelvic free fluid, likely residual postoperative fluid
--- NOTE | 2017-09-17 18:01 | Event Note ---
Date: 09/17/17 Patient declined NGT placement. Nurse reports that she was tolerating juice. Dr. Hdz planning on ERCP tomorrow.
--- NOTE | 2017-09-17 18:09 | Gastroenterology Progress Note ---
Assessment and Plan - Patient Problems (1) Abnormal liver enzymes Current Visit: Yes Status: Acute Plan to address problem: - S/P CCY 5 days ago but retained stone, vascular clot (PV, HV), or duct transection all unlikely given radiographic and lab findings. - May have oozing from the ducts of Lushka or the liver bed itself given severe adhesions and need to peel GB away from liver wall. - May also have post-surgical edematous occlusion of the CBD, that would resolve with time. - Hepatitis serologies and HIDA negative. - Continues to have static clinical course without significant improvement, and biliary-type symptoms with unresolving LFTs. A small stone at the ampulla could be causing this, as could a very low-grade bile leak. I will post the patient for an ERCP tomorrow, unless marked improvement overnight, with resolution of the liver enzymes.. Subjective Date of service: 09/17/17 Principal diagnosis: Abnl LFTs/Abdominal pain Interval history: The patient continues to have a poor appetite. She has no vomiting this afternoon, but does not want to eat much (causes pain). She says the pain continues to localize to the RUQ. She has no CP or SOB, and was able to ambulate some today. Objective - Constitutional Vitals: Temp Pulse Resp BP Pulse Ox 99.4 F 84 18 140/79 98 09/17/17 16:46 09/17/17 16:46 09/17/17 16:46 09/17/17 16:46 09/17/17 16:46 General appearance: mild distress - Respiratory Respiratory effort: normal Respiratory: bilateral: CTA - Cardiovascular Rhythm: regular Heart Sounds: Present: S1 & S2 - Gastrointestinal General gastrointestinal: Present: soft, tender (RUQ without change), non- distended - Labs CBC & Chem 7: 09/17/17 04:45 09/17/17 04:45 Labs: Laboratory Results - last 24 hr 09/16/17 09/16/17 09/17/17 12:06 17:59 00:07 WBC RBC Hgb Hct MCV MCH MCHC RDW Plt Count Lymph % (Auto) [place] % (Auto) Eos % (Auto) Baso % (Auto) Lymph # [place] # Eos # Baso # Seg Neutrophils % Seg Neutrophils # Sodium Potassium Chloride Carbon Dioxide Anion Gap BUN Creatinine Estimated GFR BUN/Creatinine Ratio Glucose POC Glucose 219 H 301 H 288 H Calcium Total Bilirubin AST ALT Alkaline Phosphatase Total Protein Albumin Albumin/Globulin Ratio 09/17/17 09/17/17 09/17/17 04:45 04:45 06:15 WBC 10.8 RBC 4.91 Hgb 13.0 Hct 38.3 MCV 78 L MCH 26 L MCHC 34 RDW 14.1 Plt Count 194 Lymph % (Auto) 13.0 L [place] % (Auto) 6.1 Eos % (Auto) 1.0 Baso % (Auto) 0.4 Lymph # 1.4 [place] # 0.7 Eos # 0.1 Baso # 0.0 Seg Neutrophils % 79.5 H Seg Neutrophils # 8.6 H Sodium 138 Potassium 3.7 Chloride 99.6 Carbon Dioxide 21 L Anion Gap 21 BUN 3 L Creatinine 0.4 L Estimated GFR > 60 BUN/Creatinine Ratio 8 Glucose 284 H POC Glucose 291 H Calcium 9.0 Total Bilirubin 4.20 H AST 123 H ALT 185 H Alkaline Phosphatase 171 H Total Protein 7.7 Albumin 3.5 L Albumin/Globulin Ratio 0.8 09/17/17 11:33 WBC RBC Hgb Hct MCV MCH MCHC RDW Plt Count Lymph % (Auto) [place] % (Auto) Eos % (Auto) Baso % (Auto) Lymph # [place] # Eos # Baso # Seg Neutrophils % Seg Neutrophils # Sodium Potassium Chloride Carbon Dioxide Anion Gap BUN Creatinine Estimated GFR BUN/Creatinine Ratio Glucose POC Glucose 249 H Calcium Total Bilirubin AST ALT Alkaline Phosphatase Total Protein Albumin Albumin/Globulin Ratio
[2017-09-17] MEDS: LEVEMIR SUB-Q SCH (23:44)
[2017-09-18] MEDS: PHENERGAN PR SCH ×4 (01:09→20:50)
[2017-09-18] MEDS: APRESOLINE IV PRN (01:12)
[2017-09-18] MEDS: NOVOLOG SUB-Q SCH ×4 (01:18→23:49)
[2017-09-18] MEDS: D5W/0.45% NACL/KCL 20 MEQ 20 MEQ/1,000 ML BAG IV SCH (02:25)
[2017-09-18] MEDS: TORADOL IV SCH ×4 (04:22→21:07)
[2017-09-18] MEDS: SENOKOT S PO SCH (04:23)
[2017-09-18 05:24] LABS: Alanine Aminotransferase 145 units/L (7-56); Albumin 3.4 g/dL (3.9-5); BUN/Creatinine Ratio 13; Blood Urea Nitrogen 4 mg/dL (7-17); Calcium 8.9 mg/dL (8.4-10.2); Hemolysis Index 0
[2017-09-18] MEDS: NORVASC PO SCH (10:04)
[2017-09-18] MEDS: NYSTATIN PO SCH ×4 (10:07→21:24)
[2017-09-18] MEDS ORDERED: K-DUR PO ONE (10:54)
[2017-09-18] MEDS: ROBITUSSIN PO SCH ×4 (11:02→23:50)
--- NOTE | 2017-09-18 11:18 | Progress Note ---
Assessment and Plan - Patient Problems (1) Elevated bilirubin Current Visit: Yes Status: Acute Plan to address problem: Pt is clinically stable. Appears to fluctuate. Repeat CT did not show any obvious abnormality for enzymes, N/V, or umbilical pain. ERCP planned for today Pt at high risk for hernia from coughing, discussed today with Pt. Time=20min (2) Nausea & vomiting Current Visit: Yes Status: Acute Qualifiers: Vomiting Intractability: unspecified Plan to address problem: As patient continues to be nauseated and now refusing meds, tried to place NGT yesterday. Pt refused. She was confused about the use. Now is Ok with placement. If abnormality found on ERCP to explain N/V, then hold off on NGT placement. Otherwise, if no clear source found, then will place NGT today. (3) Productive cough Current Visit: Yes Status: Acute Plan to address problem: Also worried about productive cough. There are no signs of pneumonia on CXR or CT. Lung exam did not reveal any abnormal sounds. WBC is normal. Will monitor. Medicine not helping. Discussed with hospitalist yesterday. Will check flu test. (4) Thrush, oral Current Visit: Yes Status: Acute Plan to address problem: Cont Nystatin for 7 days. I encouraged her to at least use the Nystatin if not the other meds. Subjective Date of service: 09/18/17 Patient Reports: Positive: no new complaints (tolerated broth for only 2 hours last night. Still with N/V, headache, and umbilical pain) Objective Vital Signs - 12hr 09/18/17 09/18/17 00:35 01:12 Temperature 99.0 F Pulse Rate 79 79 Respiratory 20 Rate Blood Pressure 173/100 173/100 O2 Sat by Pulse 94 Oximetry - General physical appearance other (same appearance - appears very uncomfortable) - Respiratory normal expansion, normal respiratory effort - Abdomen soft, tender (only at umbilicus. Rest of abdomen is benign. No tenderness at epigatric are now. ), not distended, not rebound, not guarding, not rigid - Integumentary no rash - Psychiatric oriented to time, oriented to person, oriented to place, speech is normal, memory intact - Labs 09/17/17 04:45 09/18/17 04:42 Diabetes panel 09/18/17 Range/Units 04:42 Sodium 137 (137-145) mmol/L Potassium 3.5 L (3.6-5.0) mmol/L Chloride 98.4 (98-107) mmol/L Carbon Dioxide 24 (22-30) mmol/L BUN 4 L (7-17) mg/dL Creatinine 0.3 L (0.7-1.2) mg/dL Glucose 310 H (65-100) mg/dL Calcium 8.9 (8.4-10.2) mg/dL AST 81 H (5-40) units/L ALT 145 H (7-56) units/L Alkaline Phosphatase 181 H (35-129) units/L Total Protein 7.4 (6.3-8.2) g/dL Albumin 3.4 L (3.9-5) g/dL Calcium panel 09/18/17 Range/Units 04:42 Calcium 8.9 (8.4-10.2) mg/dL Albumin 3.4 L (3.9-5) g/dL Pituitary panel 09/18/17 Range/Units 04:42 Sodium 137 (137-145) mmol/L Potassium 3.5 L (3.6-5.0) mmol/L Chloride 98.4 (98-107) mmol/L Carbon Dioxide 24 (22-30) mmol/L BUN 4 L (7-17) mg/dL Creatinine 0.3 L (0.7-1.2) mg/dL Glucose 310 H (65-100) mg/dL Calcium 8.9 (8.4-10.2) mg/dL Adrenal panel 09/18/17 Range/Units 04:42 Sodium 137 (137-145) mmol/L Potassium 3.5 L (3.6-5.0) mmol/L Chloride 98.4 (98-107) mmol/L Carbon Dioxide 24 (22-30) mmol/L BUN 4 L (7-17) mg/dL Creatinine 0.3 L (0.7-1.2) mg/dL Glucose 310 H (65-100) mg/dL Calcium 8.9 (8.4-10.2) mg/dL Total Bilirubin 3.60 H (0.1-1.2) mg/dL AST 81 H (5-40) units/L ALT 145 H (7-56) units/L Alkaline Phosphatase 181 H (35-129) units/L Total Protein 7.4 (6.3-8.2) g/dL Albumin 3.4 L (3.9-5) g/dL
[2017-09-18] MEDS: DILAUDID IV PRN ×4 (12:13→21:16)
[2017-09-18] MEDS ORDERED: ZOFRAN ONE (13:27)
[2017-09-18] MEDS: NACL 0.9% 1000 ML 1,000 ML IV SCH ×2 (13:50→16:42)
[2017-09-18] MEDS: HEPARIN SUB-Q SCH ×3 (15:03→21:26)
[2017-09-18] MEDS: TESSALON PERLES PO SCH ×3 (15:04→21:25)
[2017-09-18] MEDS: PROTONIX PO SCH (15:10)
[2017-09-18] MEDS: ZESTRIL PO SCH (15:10)
[2017-09-18] MEDS: CATAPRES PO SCH ×2 (15:12→20:48)
--- NOTE | 2017-09-18 15:36 | Progress Note ---
Assessment and Plan Assessment and plan: 52-year-old with history of IDDM and Htn s/p laparoscopic cholecystectomy 2 days ago here with worsening persistent nausea vomiting and abdominal pain , elevated liver function tests --Intractable nausea vomiting; supportive care --Transaminitis ; ERCP today Slowly trending down , Hepatitis panel, HIDA scan negative --Type 2 diabetes mellitus -uncontrolled Continue Accu-Chek sliding scale coverage , ADA diet and increase Lantus insulin , add NovoLog before every meal Closely monitor --Malignant hypertension ; Uncontrolled blood pressures , partly secondary to pain and discomfort Had low-dose hydralazine and when necessary hydralazine optimize BP meds --sp recent lap roni Continue postoperative care per surgery --Low-grade fever/mild cough/possible flu Symptomatic management, influenza screen Chest x-ray to rule out bronchitis/pneumonia, reduce IV fluids, consider a course of antibiotics if chest x-ray is abnormal --Possible gastroparesis Pending gastric emptying study, and CT abdomen and pelvis Consider gastric motility agents needed GI and surgery recommendations noted and appreciated Plan of care discussed with the patient, family members at the bedside and the nurse. Answered all the questions History Interval history: Patient seen and evaluated medical records reviewed The slightly better, complains of mild abdominal pain Scheduled for ERCP today Vital signs reviewed Hospitalist Physical - Constitutional Vitals: Temp Pulse Resp BP Pulse Ox 98.8 F 80 15 177/95 98 09/18/17 13:45 09/18/17 13:45 09/18/17 13:45 09/18/17 13:45 09/18/17 13:45 General appearance: Present: no acute distress, well-nourished, obese - EENT Eyes: Present: PERRL, EOM intact - Neck Neck: Present: supple, normal ROM - Respiratory Respiratory effort: normal Respiratory: bilateral: diminished, negative: rales, rhonchi, wheezing - Cardiovascular Rhythm: regular Heart Sounds: Present: S1 & S2 - Extremities Extremities: no ischemia, No edema - Abdominal General gastrointestinal: soft, non-tender, non-distended, normal bowel sounds - Integumentary Integumentary: Present: clear, warm - Psychiatric Psychiatric: appropriate mood/affect, cooperative - Neurologic Neurologic: CNII-XII intact, moves all extremities Results - Labs CBC & Chem 7: 09/17/17 04:45 09/18/17 04:42 Labs: Laboratory Last Values WBC 10.8 K/mm3 (4.5-11.0) 09/17/17 04:45 RBC 4.91 M/mm3 (3.65-5.03) 09/17/17 04:45 Hgb 13.0 gm/dl (10.1-14.3) 09/17/17 04:45 Hct 38.3 % (30.3-42.9) 09/17/17 04:45 MCV 78 fl (79-97) L 09/17/17 04:45 MCH 26 pg (28-32) L 09/17/17 04:45 MCHC 34 % (30-34) 09/17/17 04:45 RDW 14.1 % (13.2-15.2) 09/17/17 04:45 Plt Count 194 K/mm3 (140-440) 09/17/17 04:45 Lymph % (Auto) 13.0 % (13.4-35.0) L 09/17/17 04:45 [place] % (Auto) 6.1 % (0.0-7.3) 09/17/17 04:45 Eos % (Auto) 1.0 % (0.0-4.3) 09/17/17 04:45 Baso % (Auto) 0.4 % (0.0-1.8) 09/17/17 04:45 Lymph # 1.4 K/mm3 (1.2-5.4) 09/17/17 04:45 Clinch # 0.7 K/mm3 (0.0-0.8) 09/17/17 04:45 Eos # 0.1 K/mm3 (0.0-0.4) 09/17/17 04:45 Baso # 0.0 K/mm3 (0.0-0.1) 09/17/17 04:45 Seg Neutrophils % 79.5 % (40.0-70.0) H 09/17/17 04:45 Seg Neutrophils # 8.6 K/mm3 (1.8-7.7) H 09/17/17 04:45 Sodium 137 mmol/L (137-145) 09/18/17 04:42 Potassium 3.5 mmol/L (3.6-5.0) L 09/18/17 04:42 Chloride 98.4 mmol/L (98-107) 09/18/17 04:42 Carbon Dioxide 24 mmol/L (22-30) 09/18/17 04:42 Anion Gap 18 mmol/L 09/18/17 04:42 BUN 4 mg/dL (7-17) L 09/18/17 04:42 Creatinine 0.3 mg/dL (0.7-1.2) L 09/18/17 04:42 Estimated GFR > 60 ml/min 09/18/17 04:42 BUN/Creatinine Ratio 13 % 09/18/17 04:42 Glucose 310 mg/dL (65-100) H 09/18/17 04:42 POC Glucose 276 (70-105) H 09/17/17 22:06 Hemoglobin A1c 9.7 % (4-6) H 09/15/17 08:26 Calcium 8.9 mg/dL (8.4-10.2) 09/18/17 04:42 Total Bilirubin 3.60 mg/dL (0.1-1.2) H 09/18/17 04:42 Direct Bilirubin 4.0 mg/dL (0-0.2) H 09/14/17 17:37 Indirect Bilirubin 0.6 mg/dL 09/14/17 17:37 AST 81 units/L (5-40) H 09/18/17 04:42 ALT 145 units/L (7-56) H 09/18/17 04:42 Alkaline Phosphatase 181 units/L (35-129) H 09/18/17 04:42 Total Protein 7.4 g/dL (6.3-8.2) 09/18/17 04:42 Albumin 3.4 g/dL (3.9-5) L 09/18/17 04:42 Albumin/Globulin Ratio 0.9 % 09/18/17 04:42 Lipase 20 units/L (13-60) 09/14/17 13:26 HCG, Qual Negative (Negative) 09/14/17 13:26 Urine Color Sadie (Yellow) 09/14/17 15:00 Urine Turbidity Clear (Clear) 09/14/17 15:00 Urine pH 7.0 (5.0-7.0) 09/14/17 15:00 Ur Specific [place] 1.013 (1.003-1.030) 09/14/17 15:00 Urine Protein <15 mg/dl mg/dL (Negative) 09/14/17 15:00 Urine Glucose (UA) Neg mg/dL (Negative) 09/14/17 15:00 Urine Ketones 80 mg/dL (Negative) 09/14/17 15:00 Urine Blood Neg (Negative) 09/14/17 15:00 Urine Nitrite Neg (Negative) 09/14/17 15:00 Urine Bilirubin Sm (Negative) 09/14/17 15:00 Urine Ictotest Negative (Negative) 09/14/17 15:00 Urine Urobilinogen < 2.0 mg/dL (<2.0) 09/14/17 15:00 Ur Leukocyte Esterase Neg (Negative) 09/14/17 15:00 Urine WBC (Auto) 3.0 /HPF (0.0-6.0) 09/14/17 15:00 Urine RBC (Auto) 7.0 /HPF (0.0-6.0) 09/14/17 15:00 U Epithel Cells (Auto) 4.0 /HPF (0-13.0) 09/14/17 15:00 Urine Bacteria (Auto) 1+ /HPF (Negative) 09/14/17 15:00 Urine Mucus Few /HPF 09/14/17 15:00 Hepatitis A IgM Ab Non-reactive (NonReactive) 09/16/17 04:38 Hep Bs Antigen Non-reactive (Negative) 09/16/17 04:38 Hep B Core IgM Ab Non-reactive (NonReactive) 09/16/17 04:38 Hepatitis C Antibody Non-reactive (NonReactive) 09/16/17 04:38
[2017-09-18] MEDS ORDERED: VERSED ONE (15:55)
[2017-09-18] MEDS ORDERED: DIPRIVAN 10 MG/ML IV ONE ×2 (15:55)
--- NOTE | 2017-09-18 17:07 | Post Operative Note ---
Pre-op diagnosis: Abnl LFTs Post-op diagnosis: other (Duodenal tic, biliary sludge, dilated CBD) Findings: 1. Periampullary diverticulum (about 1cm away), but ampulla otherwise normal 2. PD not cannulated or injected 3. CBD cannulated with Dreamtome/0.35 wire - dilated to 1cm - Distal filling defects noted - Medium sphincterotomy done - 9mm balloon swept through 4 times with removal of biliary sludge - Good flow of bile at end of the procedure 4. Clips in the RUQ 5. No obvious biliary leak Procedure: ERCP with biliary sphincterotomy and balloon sweeping of the CBD Anesthesia: MAC Surgeon: SIGRID FEMRIN Estimated blood loss: minimal Pathology: none Specimen disposition: other (N/A) Condition: stable Disposition: floor (Recs: 1. Advance to regular diet. 2. Trend LFTs. 3. Avoid NSAIDs for 3 days. 4. Continue daily protonix while here. 5. No purulence in biliary secretions, and no obstruction at present; no need to continue abx.)
--- NOTE | 2017-09-18 18:15 | Operative Report ---
PROCEDURE PERFORMED: Endoscopic retrograde cholangiopancreatography with biliary sphincterotomy and balloon sweeping of the common bile duct. PREOPERATIVE DIAGNOSES: Abnormal liver enzymes and history of choledocholithiasis. POSTOPERATIVE DIAGNOSES: Dilated common bile duct with biliary sludge, periampullary diverticulum, no evidence of bile leak. ENDOSCOPIST: Rene Hdz MD INSTRUMENT: [employer] video endoscope. MEDICATIONS: MAC anesthesia by [facility]. COMPLICATIONS: No apparent complications. ESTIMATED BLOOD LOSS: Minimal. SPECIMENS: None. IMPLANTS: None. ASSISTANTS: None. CONDITION AT COMPLETION: Stable. TECHNIQUE: The patient was informed of the risks and benefits of the procedure. She signed informed consent to proceed. She was placed in the prone position. The above sedative medications were given. Her vital signs remained stable throughout the procedure. The instrument was advanced from the mouth to the second portion of the duodenum under direct visualization. At that point, the bowel was insufflated. The ampulla was normal in shape and size, but approximately 1 cm proximal, there was a small periampullary diverticulum, not involving the ampullary orifice. The pancreatic duct was not cannulated. The common bile duct was cannulated using a Dreamtome and a 0.035 guidewire. A cholangiogram showed it was dilated to 1 cm with some distal tapering either due to stenosis or compression from the diverticulum. Filling defects were noted in the most distal portion. Medium sized sphincterotomy was performed, and a 9 mm balloon was swept 4 times through the common bile duct with removal of biliary sludge. A cholangiogram at the end of the procedure showed good flow of bile and no evidence of retained stones. Incidentally noted were clips in the right upper quadrant and there was no evidence of a gross biliary leak. FINDINGS: 1. Periampullary diverticulum, approximately 1 cm proximal to the ampulla, but the ampulla was otherwise normal in shape and size. 2. The pancreatic duct was not cannulated or injected. 3. The common bile duct was cannulated using a Dreamtome and a 0.035 guidewire. A. The common bile duct was dilated to 1 cm. B. Distal filling defects were noted and a medium sized sphincterotomy was performed. C. A 9 mm balloon was swept 4 times through the common bile duct with removal of biliary sludge. D. There was good flow of bile at the end of the procedure. 4. Clips present in the right upper quadrant consistent with recent cholecystectomy. 5. No obvious biliary leak seen on the cholangiogram. RECOMMENDATIONS: 1. Advance to a regular diet. 2. Trend the liver enzymes. 3. Avoid aspirin products for the next 3 days. 4. Continue daily Protonix while here given the sphincterotomy. 5. No purulence was noted in the biliary secretions and there was no obstruction at the end of the procedure; I think there is no need to continue antibiotics at present. JOB# [id number] REMEDIOS/NTS
[2017-09-18] MEDS: LEVEMIR SUB-Q SCH (23:48)
[2017-09-19] MEDS: PHENERGAN PR SCH ×5 (00:02→22:59)
[2017-09-19] MEDS: TORADOL IV SCH (03:00)
[2017-09-19] MEDS: CATAPRES PO SCH ×3 (03:01→19:23)
[2017-09-19 05:17] LABS: Alanine Aminotransferase 130 units/L (7-56); Albumin 3.4 g/dL (3.9-5); BUN/Creatinine Ratio 20; Blood Urea Nitrogen 8 mg/dL (7-17); Calcium 9.4 mg/dL (8.4-10.2); Hemolysis Index 0
[2017-09-19 05:24] LABS: Basophils % (Auto) 0.2 % (0.0-1.8); Eosinophils # (Auto) 0.1 K/mm3 (0.0-0.4); Eosinophils % (Auto) 0.9 % (0.0-4.3); Hematocrit 36.1 % (30.3-42.9); Hemoglobin 12.3 gm/dl (10.1-14.3); Lymphocytes # (Auto) 1.2 K/mm3 (1.2-5.4); Lymphocytes % (Auto) 12.2 % (13.4-35.0); Mean Corpuscular HGB Conc 34 % (30-34); Mean Corpuscular Hemoglobin 27 pg (28-32); Mean Corpuscular Volume 78 fl (79-97); Monocytes # (Auto) 0.6 K/mm3 (0.0-0.8); Monocytes % (Auto) 6.2 % (0.0-7.3); Platelet Count 240 K/mm3 (140-440); Red Blood Count 4.63 M/mm3 (3.65-5.03); Red Cell Distribution Width 14.5 % (13.2-15.2)
[2017-09-19] MEDS: ROBITUSSIN PO SCH (05:48)
[2017-09-19] MEDS: TESSALON PERLES PO SCH ×3 (05:48→22:45)
[2017-09-19] MEDS: HEPARIN SUB-Q SCH ×3 (05:49→22:51)
[2017-09-19] MEDS: NOVOLOG SUB-Q SCH ×5 (07:34→18:28)
[2017-09-19] MEDS ORDERED: K-DUR PO NR (08:04)
--- NOTE | 2017-09-19 08:08 | Fluoroscopy Report ---
FLUOROSCOPY ERCP BILIARY DUCT History: Abnormal liver function tests, choledocholithiasis. Findings: Fluoroscopy was provided by radiology during ERCP by gastroenterology. 5 fluoroscopic images were captured. The images demonstrate balloon sweep of the common bile duct to remove sludge. No stones were mentioned per the operative note. Sphincterotomy was performed. The pancreatic duct was not injected. Impression: Removal of sludge from the common bile duct as described.
[2017-09-19] MEDS: ZESTRIL PO SCH (10:03)
[2017-09-19] MEDS: NORVASC PO SCH (10:03)
[2017-09-19] MEDS: PROTONIX PO SCH (10:04)
[2017-09-19] MEDS: NYSTATIN PO SCH ×4 (10:04→22:42)
--- NOTE | 2017-09-19 10:57 | Progress Note ---
Assessment and Plan - Patient Problems (1) Elevated bilirubin Current Visit: Yes Status: Acute Plan to address problem: Pt is clinically much improved! Up today most likely due to ERCP yesterday. Should resolve with time. GI ok with discharging home. Pt at high risk for hernia from coughing, already discussed with Pt. I feel comfortable sending her home. GI is ok as well. Will check with hospitalist. Time=20min (2) Nausea & vomiting Current Visit: Yes Status: Resolved Qualifiers: Vomiting Intractability: unspecified (3) Productive cough Current Visit: Yes Status: Acute Plan to address problem: Also worried about productive cough. There are no signs of pneumonia on CXR or CT. Lung exam did not reveal any abnormal sounds. WBC is normal. Will monitor. Medicine not helping. Discussed with hospitalist yesterday. Will check flu test. (4) Thrush, oral Current Visit: Yes Status: Acute Plan to address problem: Cont Nystatin for 7 days. I encouraged her to at least use the Nystatin if not the other meds. Subjective Date of service: 09/19/17 Patient Reports: Positive: no new complaints, feels better (Feels so much better. All symptoms have resolved. ), tolerating a regular diet, flatus, no bowel movement. Negative: nausea, vomiting Objective Vital Signs - 12hr 09/18/17 09/19/17 09/19/17 23:58 03:01 04:53 Temperature 98.6 F 98.6 F Pulse Rate 85 85 74 Respiratory 20 20 Rate Blood Pressure 158/74 158/74 161/79 Blood Pressure [Left] O2 Sat by Pulse 98 98 Oximetry 09/19/17 09/19/17 07:15 07:16 Temperature 98.4 F Pulse Rate 70 66 Respiratory 20 Rate Blood Pressure Blood Pressure 164/90 [Left] O2 Sat by Pulse 100 100 Oximetry - General physical appearance well developed, well nourished, no distress, no pain, other (Looks back normal. She looks great today) - Eyes normal occular movement - Respiratory normal expansion, normal respiratory effort - Abdomen soft, not tender, not distended, not guarding, not rigid - Psychiatric oriented to time, oriented to person, oriented to place, speech is normal, memory intact - Labs 09/19/17 04:18 09/19/17 04:18 Diabetes panel 09/19/17 Range/Units 04:18 Sodium 136 L (137-145) mmol/L Potassium 3.5 L (3.6-5.0) mmol/L Chloride 95.9 L (98-107) mmol/L Carbon Dioxide 27 (22-30) mmol/L BUN 8 (7-17) mg/dL Creatinine 0.4 L (0.7-1.2) mg/dL Glucose 266 H (65-100) mg/dL Calcium 9.4 (8.4-10.2) mg/dL AST 72 H (5-40) units/L ALT 130 H (7-56) units/L Alkaline Phosphatase 205 H (35-129) units/L Total Protein 7.8 (6.3-8.2) g/dL Albumin 3.4 L (3.9-5) g/dL Calcium panel 09/19/17 Range/Units 04:18 Calcium 9.4 (8.4-10.2) mg/dL Albumin 3.4 L (3.9-5) g/dL Pituitary panel 09/19/17 Range/Units 04:18 Sodium 136 L (137-145) mmol/L Potassium 3.5 L (3.6-5.0) mmol/L Chloride 95.9 L (98-107) mmol/L Carbon Dioxide 27 (22-30) mmol/L BUN 8 (7-17) mg/dL Creatinine 0.4 L (0.7-1.2) mg/dL Glucose 266 H (65-100) mg/dL Calcium 9.4 (8.4-10.2) mg/dL Adrenal panel 09/19/17 Range/Units 04:18 Sodium 136 L (137-145) mmol/L Potassium 3.5 L (3.6-5.0) mmol/L Chloride 95.9 L (98-107) mmol/L Carbon Dioxide 27 (22-30) mmol/L BUN 8 (7-17) mg/dL Creatinine 0.4 L (0.7-1.2) mg/dL Glucose 266 H (65-100) mg/dL Calcium 9.4 (8.4-10.2) mg/dL Total Bilirubin 5.80 H (0.1-1.2) mg/dL AST 72 H (5-40) units/L ALT 130 H (7-56) units/L Alkaline Phosphatase 205 H (35-129) units/L Total Protein 7.8 (6.3-8.2) g/dL Albumin 3.4 L (3.9-5) g/dL
--- NOTE | 2017-09-19 11:49 | Discharge Summary ---
Providers - Providers Date of Admission: 09/14/17 17:55 Date of discharge: 09/19/17 Attending physician: IRAIS NICK 09/15/17 13:11 Consult to Physician [CONS] Routine Consulting Provider: SIGRID HDZ Reason For Exam: Elevated bilirubin Place consult to:: Office Notified:: yes Phone number called:: [phone] Was contact made?: Yes If yes, spoke with:: Pat Time called:: 09:35 Primary care physician: GRANTS MANAGER Hospitalization Reason for admission: nausea and vomiting Condition: Stable Pertinent studies: CT x 2, MRCP, HIDA, labs Procedures: ERCP Hospital course: Patient had an uncomplicated hospital course. Full work-up was done to evaluate her nausea, vomiting, elevated LFTs, headaches, abdominal pain, and cough. Despite the CAT scans, MRCP, HIDA scan being essentially normal, ERCP was pursued by [place].Reagan's recommendation. See Dr. Hdz's notes for complete details. In summary, patient was found to have diverticulum that was abutting the ampulla. Sphincterotomy seems to have resolved that issue. After the procedure, patient was markedly improved. Her symptoms had completely resolved. She was tolerating a diet and was ready to go home. Disposition: DC-01 TO HOME OR SELFCARE Time spent for discharge: 30min - Discharge Diagnoses (1) Elevated bilirubin Status: Acute (2) Nausea & vomiting Status: Resolved Qualifiers: Vomiting Intractability: unspecified (3) Productive cough Status: Acute Comment: Treat conservatively (4) Thrush, oral Status: Acute Comment: Finish nystatin course Core Measure Documentation - Palliative Care Palliative Care/ Comfort Measures: Not Applicable - Core Measures Any of the following diagnoses?: none - VTE Discharge Requirements Deep Vein Thrombosis/Pulmonary Embolism Present on Admission: No Exam - Constitutional Vitals: Temp Pulse Resp BP Pulse Ox 98.4 F 66 20 164/90 100 09/19/17 07:15 09/19/17 07:16 09/19/17 07:15 09/19/17 07:15 09/19/17 07:16 General appearance: Present: no acute distress, well-nourished - EENT Eyes: Present: EOM intact - Respiratory Respiratory effort: normal - Cardiovascular Rhythm: regular - Abdominal General gastrointestinal: Present: soft, non-tender, non-distended, normal bowel sounds - Integumentary Integumentary: Present: warm, dry - Psychiatric Psychiatric: appropriate mood/affect, intact judgment & insight Plan Follow up with: PRIMARY CARE, [Primary Care Provider] - 3-5 Days SILVANO PRATT DO [Staff Physician] - 7 Days Prescriptions: Nystatin [Nystatin SUSP] 100,000 unit PO QID 4 Days #1 udc Other Discharge Orders: Hepatic Panel Time Frame: 1 Week, Facility: [facility], Location: LABORATORY
[2017-09-19] MEDS: DILAUDID IV PRN ×3 (12:03→22:44)
--- NOTE | 2017-09-19 12:21 | Event Note ---
Date: 09/19/17 Came by to give discharge instructions and found patient to be in severe pain. Pt reports that 1 hour after eating breakfast she began to experience severe upper abdominal and right back pain. +N/V. This pain is worse than before. VSS. Appears in significant distress due to pain. No breathing compromise. Abd is diffusely tender, but not rigid. This is different than before when she was focally tender in the epigastric and umbilical areas. No guarding is noted. Appears to have some pelvic shake tenderness. acute abdominal pain - worried about potential complication from ERCP yesterday. 1) Additional pain meds 2) NGT placement 3) Stat CT
[2017-09-19] MEDS: APRESOLINE IV PRN (12:41)
[2017-09-19] MEDS ORDERED: DILAUDID IV ONE (13:18)
--- NOTE | 2017-09-19 13:41 | Event Note ---
Date: 09/19/17 Pt more relaxed now. Still in pain but the dilaudid helped. Awake and alert. Abd soft. diffuse tenderness, but does not appear to have an acute abdomen. No guarding. No rigidity. Explained why NGT needed. Pt could not tolerate placement. Explained importance of contrast. Pt willing to drink it. Will order Zofran for any nausea. Await stat CT.
[2017-09-19] MEDS: APRESOLINE PO SCH ×2 (14:00→22:45)
[2017-09-19] MEDS ORDERED: ZOFRAN IV ONE (14:00)
[2017-09-19 16:02] LABS: Basophils % (Auto) 0.3 % (0.0-1.8); Eosinophils # (Auto) 0.2 K/mm3 (0.0-0.4); Eosinophils % (Auto) 1.6 % (0.0-4.3); Hematocrit 35.6 % (30.3-42.9); Hemoglobin 12.1 gm/dl (10.1-14.3); Lymphocytes # (Auto) 1.3 K/mm3 (1.2-5.4); Lymphocytes % (Auto) 13.3 % (13.4-35.0); Mean Corpuscular HGB Conc 34 % (30-34); Mean Corpuscular Hemoglobin 27 pg (28-32); Mean Corpuscular Volume 78 fl (79-97); Monocytes # (Auto) 0.6 K/mm3 (0.0-0.8); Monocytes % (Auto) 6.4 % (0.0-7.3); Platelet Count 244 K/mm3 (140-440); Red Blood Count 4.56 M/mm3 (3.65-5.03); Red Cell Distribution Width 14.7 % (13.2-15.2)
[2017-09-19 16:20] LABS: Alanine Aminotransferase 115 units/L (7-56); Albumin 3.3 g/dL (3.9-5); BUN/Creatinine Ratio 27; Blood Urea Nitrogen 8 mg/dL (7-17); Calcium 8.8 mg/dL (8.4-10.2); Hemolysis Index 0; Lipase 38 units/L (13-60)
[2017-09-19] MEDS: TRANSDERM-SCOP TD SCH (18:04)
--- NOTE | 2017-09-19 18:29 | Gastroenterology Progress Note ---
Assessment and Plan - Patient Problems (1) Abnormal liver enzymes Current Visit: Yes Status: Acute Plan to address problem: - S/P CCY 7 days ago with persistent abnl LFTs; initial scans without obstructing stone or mass; ?bile leak but HIDA negative. - ERCP 09/18 with ductal dilation and sludge removed; ?dilated from periampullary diverticulum. - Repeat CT scan today with increased fluid in GB fossa and ?stone stuck at ampulla (?seen in proximal ducts on CT 09/17). - Discussed with Dr Padilla; will plan repeat ERCP with balloon sweeping of the CBD and stenting in case she is having low-grade leaking (?from ampullary stenosis or small stone occluding outlet). - Given fluid collection and risk of infection, will place on empiric zosyn overnight since we will be manipulating duct tomorrow, and ampulla has been cut. Subjective Date of service: 09/19/17 Principal diagnosis: Abnl LFTs/Abdominal pain Interval history: The patient did well overnight, and was prepping for discharge, when she developed abdominal pain 1 hour after eating breakfast. She has been nauseated and in pain today. Repeat labs were OK (nml WBC and lipase) and a CT shows no free air. She has had no fevers. Objective - Constitutional Vitals: Temp Pulse Resp BP Pulse Ox 99.0 F 91 H 18 161/79 98 09/19/17 16:08 09/19/17 16:08 09/19/17 18:03 09/19/17 16:08 09/19/17 16:08 General appearance: mild distress - Respiratory Respiratory effort: normal Respiratory: bilateral: CTA - Cardiovascular Rhythm: regular Heart Sounds: Present: S1 & S2 - Gastrointestinal General gastrointestinal: Present: soft, tender (RUQ and epigastric), non- distended - Labs CBC & Chem 7: 09/19/17 15:07 09/19/17 15:07 Labs: Laboratory Results - last 24 hr 09/18/17 09/19/17 09/19/17 21:50 04:18 04:18 WBC 10.2 RBC 4.63 Hgb 12.3 Hct 36.1 MCV 78 L MCH 27 L MCHC 34 RDW 14.5 Plt Count 240 Lymph % (Auto) 12.2 L [place] % (Auto) 6.2 Eos % (Auto) 0.9 Baso % (Auto) 0.2 Lymph # 1.2 [place] # 0.6 Eos # 0.1 Baso # 0.0 Seg Neutrophils % 80.5 H Seg Neutrophils # 8.2 H Sodium 136 L Potassium 3.5 L Chloride 95.9 L Carbon Dioxide 27 Anion Gap 17 BUN 8 Creatinine 0.4 L Estimated GFR > 60 BUN/Creatinine Ratio 20 Glucose 266 H POC Glucose 261 H Calcium 9.4 Total Bilirubin 5.80 H AST 72 H ALT 130 H Alkaline Phosphatase 205 H Total Protein 7.8 Albumin 3.4 L Albumin/Globulin Ratio 0.8 Amylase Lipase 09/19/17 09/19/17 09/19/17 07:48 11:39 15:07 WBC 9.4 RBC 4.56 Hgb 12.1 Hct 35.6 MCV 78 L MCH 27 L MCHC 34 RDW 14.7 Plt Count 244 Lymph % (Auto) 13.3 L [place] % (Auto) 6.4 Eos % (Auto) 1.6 Baso % (Auto) 0.3 Lymph # 1.3 [place] # 0.6 Eos # 0.2 Baso # 0.0 Seg Neutrophils % 78.4 H Seg Neutrophils # 7.4 Sodium Potassium Chloride Carbon Dioxide Anion Gap BUN Creatinine Estimated GFR BUN/Creatinine Ratio Glucose POC Glucose 257 H 221 H Calcium Total Bilirubin AST ALT Alkaline Phosphatase Total Protein Albumin Albumin/Globulin Ratio Amylase Lipase 09/19/17 09/19/17 15:07 16:47 WBC RBC Hgb Hct MCV MCH MCHC RDW Plt Count Lymph % (Auto) [place] % (Auto) Eos % (Auto) Baso % (Auto) Lymph # [place] # Eos # Baso # Seg Neutrophils % Seg Neutrophils # Sodium 140 Potassium 3.7 Chloride 97.2 L Carbon Dioxide 26 Anion Gap 21 BUN 8 Creatinine 0.3 L Estimated GFR > 60 BUN/Creatinine Ratio 27 Glucose 224 H POC Glucose 216 H Calcium 8.8 Total Bilirubin 5.80 H AST 64 H ALT 115 H Alkaline Phosphatase 211 H Total Protein 6.7 Albumin 3.3 L Albumin/Globulin Ratio 1.0 Amylase 55 Lipase 38
--- NOTE | 2017-09-19 18:31 | Progress Note ---
Assessment and Plan Assessment and plan: --Intractable nausea vomiting; supportive care --Transaminitis ; status post ERCP and sphincterotomy LFTs Slowly trending down , Hepatitis panel, HIDA scan negative --Type 2 diabetes mellitus -uncontrolled Continue Accu-Chek sliding scale coverage , ADA diet and increase Lantus insulin , add NovoLog before every meal Closely monitor --Malignant hypertension ; Uncontrolled blood pressures , partly secondary to pain and discomfort Had low-dose hydralazine and when necessary hydralazine optimize BP meds --sp recent lap roni Continue postoperative care per surgery --Low-grade fever/mild cough/possible flu Symptomatic management, influenza screen Chest x-ray to rule out bronchitis/pneumonia, reduce IV fluids, consider a course of antibiotics if chest x-ray is abnormal --Possible gastroparesis Pending gastric emptying study, and CT abdomen and pelvis Consider gastric motility agents needed GI and surgery recommendations noted and appreciated Plan of care discussed with the patient, family members at the bedside and the nurse. Answered all the questions History Interval history: Patient seen and evaluated medical records reviewed Patient continues to have abdominal pain Initially cleared for discharge however patient complaint abdominal pain and nausea Surgery advised abdominal CT with contrast Patient alert and awake oriented 3 Mild distress Complaints of pain in the hospital multiple pain medications Vital signs reviewed Hospitalist Physical - Constitutional Vitals: Temp Pulse Resp BP Pulse Ox 99.0 F 91 H 18 161/79 98 09/19/17 16:08 09/19/17 16:08 09/19/17 18:03 09/19/17 16:08 09/19/17 16:08 General appearance: Present: no acute distress, well-nourished - EENT Eyes: Present: PERRL, EOM intact - Neck Neck: Present: supple, normal ROM - Respiratory Respiratory effort: normal Respiratory: negative: rales, rhonchi, wheezing - Cardiovascular Rhythm: regular Heart Sounds: Present: S1 & S2 - Extremities Extremities: no ischemia, No edema - Abdominal General gastrointestinal: soft, tender (no guarding no rigidity ), non-distended , normal bowel sounds - Integumentary Integumentary: Present: clear, warm - Psychiatric Psychiatric: appropriate mood/affect, cooperative - Neurologic Neurologic: CNII-XII intact, moves all extremities Results - Labs CBC & Chem 7: 09/19/17 15:07 09/19/17 15:07 Labs: Laboratory Last Values WBC 9.4 K/mm3 (4.5-11.0) 09/19/17 15:07 RBC 4.56 M/mm3 (3.65-5.03) 09/19/17 15:07 Hgb 12.1 gm/dl (10.1-14.3) 09/19/17 15:07 Hct 35.6 % (30.3-42.9) 09/19/17 15:07 MCV 78 fl (79-97) L 09/19/17 15:07 MCH 27 pg (28-32) L 09/19/17 15:07 MCHC 34 % (30-34) 09/19/17 15:07 RDW 14.7 % (13.2-15.2) 09/19/17 15:07 Plt Count 244 K/mm3 (140-440) 09/19/17 15:07 Lymph % (Auto) 13.3 % (13.4-35.0) L 09/19/17 15:07 Rowan % (Auto) 6.4 % (0.0-7.3) 09/19/17 15:07 Eos % (Auto) 1.6 % (0.0-4.3) 09/19/17 15:07 Baso % (Auto) 0.3 % (0.0-1.8) 09/19/17 15:07 Lymph # 1.3 K/mm3 (1.2-5.4) 09/19/17 15:07 Rowan # 0.6 K/mm3 (0.0-0.8) 09/19/17 15:07 Eos # 0.2 K/mm3 (0.0-0.4) 09/19/17 15:07 Baso # 0.0 K/mm3 (0.0-0.1) 09/19/17 15:07 Seg Neutrophils % 78.4 % (40.0-70.0) H 09/19/17 15:07 Seg Neutrophils # 7.4 K/mm3 (1.8-7.7) 09/19/17 15:07 Sodium 140 mmol/L (137-145) 09/19/17 15:07 Potassium 3.7 mmol/L (3.6-5.0) 09/19/17 15:07 Chloride 97.2 mmol/L (98-107) L 09/19/17 15:07 Carbon Dioxide 26 mmol/L (22-30) 09/19/17 15:07 Anion Gap 21 mmol/L 09/19/17 15:07 BUN 8 mg/dL (7-17) 09/19/17 15:07 Creatinine 0.3 mg/dL (0.7-1.2) L 09/19/17 15:07 Estimated GFR > 60 ml/min 09/19/17 15:07 BUN/Creatinine Ratio 27 % 09/19/17 15:07 Glucose 224 mg/dL (65-100) H 09/19/17 15:07 POC Glucose 216 (70-105) H 09/19/17 16:47 Hemoglobin A1c 9.7 % (4-6) H 09/15/17 08:26 Calcium 8.8 mg/dL (8.4-10.2) 09/19/17 15:07 Total Bilirubin 5.80 mg/dL (0.1-1.2) H 09/19/17 15:07 Direct Bilirubin 4.0 mg/dL (0-0.2) H 09/14/17 17:37 Indirect Bilirubin 0.6 mg/dL 09/14/17 17:37 AST 64 units/L (5-40) H 09/19/17 15:07 ALT 115 units/L (7-56) H 09/19/17 15:07 Alkaline Phosphatase 211 units/L (35-129) H 09/19/17 15:07 Total Protein 6.7 g/dL (6.3-8.2) 09/19/17 15:07 Albumin 3.3 g/dL (3.9-5) L 09/19/17 15:07 Albumin/Globulin Ratio 1.0 % 09/19/17 15:07 Amylase 55 units/L (27-131) 09/19/17 15:07 Lipase 38 units/L (13-60) 09/19/17 15:07 HCG, Qual Negative (Negative) 09/14/17 13:26 Urine Color Sadie (Yellow) 09/14/17 15:00 Urine Turbidity Clear (Clear) 09/14/17 15:00 Urine pH 7.0 (5.0-7.0) 09/14/17 15:00 Ur Specific [place] 1.013 (1.003-1.030) 09/14/17 15:00 Urine Protein <15 mg/dl mg/dL (Negative) 09/14/17 15:00 Urine Glucose (UA) Neg mg/dL (Negative) 09/14/17 15:00 Urine Ketones 80 mg/dL (Negative) 09/14/17 15:00 Urine Blood Neg (Negative) 09/14/17 15:00 Urine Nitrite Neg (Negative) 09/14/17 15:00 Urine Bilirubin Sm (Negative) 09/14/17 15:00 Urine Ictotest Negative (Negative) 09/14/17 15:00 Urine Urobilinogen < 2.0 mg/dL (<2.0) 09/14/17 15:00 Ur Leukocyte Esterase Neg (Negative) 09/14/17 15:00 Urine WBC (Auto) 3.0 /HPF (0.0-6.0) 09/14/17 15:00 Urine RBC (Auto) 7.0 /HPF (0.0-6.0) 09/14/17 15:00 U Epithel Cells (Auto) 4.0 /HPF (0-13.0) 09/14/17 15:00 Urine Bacteria (Auto) 1+ /HPF (Negative) 09/14/17 15:00 Urine Mucus Few /HPF 09/14/17 15:00 Hepatitis A IgM Ab Non-reactive (NonReactive) 09/16/17 04:38 Hep Bs Antigen Non-reactive (Negative) 09/16/17 04:38 Hep B Core IgM Ab Non-reactive (NonReactive) 09/16/17 04:38 Hepatitis C Antibody Non-reactive (NonReactive) 09/16/17 04:38
--- NOTE | 2017-09-19 18:42 | Cat Scan Report ---
FINAL REPORT PROCEDURE: CT ABDOMEN PELVIS W CON TECHNIQUE: Computerized axial tomography of the abdomen and pelvis was performed after the IV injection of iodinated nonionic contrast. HISTORY: sudden onset of severe upper abd pain. ERCP 07/18 COMPARISON: 09/17/2017 FINDINGS: Visualized lower thorax: No significant abnormality. Liver: Moderate hepatic steatosis with mild to moderate intrahepatic duct dilatation.. Spleen: Normal size and attenuation. Gallbladder and biliary system: Apparent prior cholecystectomy with clips gallbladder fossa. There is a residual collection in the gallbladder fossa appearing somewhat lobular or septated measuring 3 x 3 centimeters. There is some stranding seen inferior to this collection. Distal common bile duct dilatation measuring in 7 millimeters with a stone in the distal common bile duct measuring 2 millimeters pancreatic duct 3 millimeters with possible tiny 1 millimeter calculus in the proximal pancreatic duct axial 75 Pancreas: Definitive biliary pancreatitis not seen at this time however patient is at risk for the same. Adrenals: Normal. Kidneys: Low attenuated probable cystic changes of the cortical areas. GI tract: Normal. Lymph nodes and mesentery: Normal. Vasculature: Normal. Bladder: Normal. Reproductive organs: Surgically absent suspect normal caliber appendix. Peritoneum: Scant free fluid in the pelvis. Musculoskeletal structures: No significant abnormality. Other: None. IMPRESSION: Fluid collection within the gallbladder fossa possibly septated could reflect lymphocele or biloma. Consider HIDA scan. Stranding in the gallbladder fossa area with some complexity of the gallbladder fossa fluid collection makes infected fluid not entirely excludable but could be post operative edema and stranding related. Intrahepatic duct dilatation. Extrahepatic duct dilatation with choledocholithiasis. 2 millimeter biliary calculus has progressed from the common hepatic duct on prior study to the distal common bile duct at this time. Small amount of free fluid pelvis
[2017-09-19] MEDS ORDERED: CEPACOL X STRENGTH MM PRN (19:22)
--- NOTE | 2017-09-19 20:15 | Event Note ---
Date: 09/19/[address], labs, and discussed the case with Dr. Hdz. No emergency issues identified. It seems as though we had an acute event with pain that may be related to a blockage again in the CBD. Will try ERCP again with stent placement tomorrow if labs are not improved and she is not feeling better. I went to discuss this with the patient, but she was finally sleeping. Gave a brief overview to the friend.
[2017-09-19] MEDS: ZOSYN/NS 4.5GM/100ML 4.5 GM/100 ML VIAL IV SCH (22:41)
[2017-09-19] MEDS: LEVEMIR SUB-Q SCH (22:52)
[2017-09-20] MEDS: NOVOLOG SUB-Q SCH ×2 (00:26→07:32)
[2017-09-20] MEDS: CATAPRES PO SCH ×2 (03:17→22:16)
[2017-09-20 04:32] LABS: Basophils % (Auto) 0.4 % (0.0-1.8); Eosinophils # (Auto) 0.2 K/mm3 (0.0-0.4); Eosinophils % (Auto) 2.3 % (0.0-4.3); Hemoglobin 11.7 gm/dl (10.1-14.3); Lymphocytes # (Auto) 1.8 K/mm3 (1.2-5.4); Lymphocytes % (Auto) 18.9 % (13.4-35.0); Mean Corpuscular HGB Conc 34 % (30-34); Mean Corpuscular Hemoglobin 26 pg (28-32); Mean Corpuscular Volume 77 fl (79-97); Monocytes # (Auto) 0.5 K/mm3 (0.0-0.8); Monocytes % (Auto) 5.8 % (0.0-7.3); Platelet Count 258 K/mm3 (140-440); Red Blood Count 4.43 M/mm3 (3.65-5.03); Red Cell Distribution Width 14.4 % (13.2-15.2)
[2017-09-20 04:54] LABS: Alanine Aminotransferase 106 units/L (7-56); Albumin 3.2 g/dL (3.9-5); BUN/Creatinine Ratio 18; Blood Urea Nitrogen 7 mg/dL (7-17); Hemolysis Index 10
[2017-09-20] MEDS: ZOSYN/NS 4.5GM/100ML 4.5 GM/100 ML VIAL IV SCH ×3 (05:59→22:10)
[2017-09-20] MEDS: TESSALON PERLES PO SCH ×2 (06:01→22:05)
[2017-09-20] MEDS: APRESOLINE PO SCH ×2 (06:01→22:04)
[2017-09-20] MEDS: PHENERGAN PR SCH (06:09)
[2017-09-20] MEDS: HEPARIN SUB-Q SCH ×2 (06:10→22:03)
[2017-09-20] MEDS: DILAUDID IV PRN ×2 (06:15→22:17)
[2017-09-20] MEDS ORDERED: NACL 0.9% 100 ML ONE (09:34)
[2017-09-20] MEDS ORDERED: NACL 0.9% 1000 ML 1,000 ML ONE (09:34)
[2017-09-20] MEDS ORDERED: INFANTS' GAS RELIEF PO ONE (09:35)
[2017-09-20] MEDS ORDERED: WATER FOR IRRIG STERILE IR ONE (09:35)
[2017-09-20] MEDS ORDERED: GLUCAGEN ONE (09:37)
--- NOTE | 2017-09-20 11:15 | Progress Note ---
Assessment and Plan - Patient Problems (1) Elevated bilirubin Current Visit: Yes Status: Acute Plan to address problem: Patient is stable. Bilirubin is stable. Scheduled for ERCP today. I mentioned to her that Dr. Hdz is put into place a stent this time. Hopefully that will help resolve this problem. Time=20min (2) Nausea & vomiting Current Visit: Yes Status: Resolved Qualifiers: Vomiting Intractability: unspecified Plan to address problem: I think it is clear now that this is related to her biliary issues. Thankfully , we saw no signs of any complications on CT scan yesterday. Hopefully, the ERCP will be helpful today. Continue supportive care. (3) Productive cough Current Visit: Yes Status: Acute Plan to address problem: Also worried about productive cough. There are no signs of pneumonia on CXR or CT. Lung exam did not reveal any abnormal sounds. WBC is normal. Will monitor. Medicine not helping. Discussed with hospitalist yesterday. Will check flu test. (4) Thrush, oral Current Visit: Yes Status: Acute Plan to address problem: Cont Nystatin for 7 days. I encouraged her to at least use the Nystatin if not the other meds. Subjective Patient Reports: Positive: no new complaints, still having pain (but now it is back to what she had prior to the ERCP), nausea, other (headaches and back pain) Objective Vital Signs - 12hr 09/20/17 09/20/17 09/20/17 00:00 00:01 00:07 Temperature 98.7 F Pulse Rate 82 88 Respiratory 20 Rate Blood Pressure 114/64 O2 Sat by Pulse 97 98 Oximetry 09/20/17 09/20/17 09/20/17 04:57 04:58 07:33 Temperature 98.4 F 98.5 F Pulse Rate 73 73 77 Respiratory 16 18 Rate Blood Pressure 113/62 132/67 O2 Sat by Pulse 98 99 95 Oximetry - General physical appearance well developed, well nourished, no distress, other (calmer now. ) - Eyes normal occular movement - Respiratory normal expansion, normal respiratory effort - Abdomen soft, tender (now localized to periumbilical area like before. Rest of abdomen is benign), not distended, not guarding, not rigid, surgical scars (healing well ) - Integumentary no rash, no growths, no abnormal pigmentation - Psychiatric oriented to time, oriented to person, oriented to place, speech is normal, memory intact - Labs 09/20/17 04:00 09/20/17 04:00 Diabetes panel 09/19/17 09/20/17 Range/Units 15:07 04:00 Sodium 140 141 (137-145) mmol/L Potassium 3.7 3.6 (3.6-5.0) mmol/L Chloride 97.2 L 98.0 (98-107) mmol/L Carbon Dioxide 26 27 (22-30) mmol/L BUN 8 7 (7-17) mg/dL Creatinine 0.3 L 0.4 L (0.7-1.2) mg/dL Glucose 224 H 115 H (65-100) mg/dL Calcium 8.8 9.0 (8.4-10.2) mg/dL AST 64 H 70 H (5-40) units/L ALT 115 H 106 H (7-56) units/L Alkaline Phosphatase 211 H 208 H (35-129) units/L Total Protein 6.7 6.5 (6.3-8.2) g/dL Albumin 3.3 L 3.2 L (3.9-5) g/dL Calcium panel 09/19/17 09/20/17 Range/Units 15:07 04:00 Calcium 8.8 9.0 (8.4-10.2) mg/dL Albumin 3.3 L 3.2 L (3.9-5) g/dL Pituitary panel 09/19/17 09/20/17 Range/Units 15:07 04:00 Sodium 140 141 (137-145) mmol/L Potassium 3.7 3.6 (3.6-5.0) mmol/L Chloride 97.2 L 98.0 (98-107) mmol/L Carbon Dioxide 26 27 (22-30) mmol/L BUN 8 7 (7-17) mg/dL Creatinine 0.3 L 0.4 L (0.7-1.2) mg/dL Glucose 224 H 115 H (65-100) mg/dL Calcium 8.8 9.0 (8.4-10.2) mg/dL Adrenal panel 09/19/17 09/20/17 Range/Units 15:07 04:00 Sodium 140 141 (137-145) mmol/L Potassium 3.7 3.6 (3.6-5.0) mmol/L Chloride 97.2 L 98.0 (98-107) mmol/L Carbon Dioxide 26 27 (22-30) mmol/L BUN 8 7 (7-17) mg/dL Creatinine 0.3 L 0.4 L (0.7-1.2) mg/dL Glucose 224 H 115 H (65-100) mg/dL Calcium 8.8 9.0 (8.4-10.2) mg/dL Total Bilirubin 5.80 H 5.20 H (0.1-1.2) mg/dL AST 64 H 70 H (5-40) units/L ALT 115 H 106 H (7-56) units/L Alkaline Phosphatase 211 H 208 H (35-129) units/L Total Protein 6.7 6.5 (6.3-8.2) g/dL Albumin 3.3 L 3.2 L (3.9-5) g/dL
--- NOTE | 2017-09-20 13:05 | Anesthesia Consultation ---
Anesthesia Consult and Med Hx Date of service: 09/20/17 - Airway Anesthetic Teeth Evaluation: Poor ROM Head & Neck: Adequate Mental/Hyoid Distance: Adequate Mallampati Class: Class II Intubation Access Assessment: Probably Good - Pre-Operative Health Status ASA Pre-Surgery Classification: ASA3 Proposed Anesthetic Plan: MAC - Cardiovascular System Hx Hypertension: Yes (3 YEARS) - Central Nervous System Hx Back Pain: Yes Hx Psychiatric Problems: No - Gastrointestinal Hx Gastroesophageal Reflux Disease: Yes - Endocrine Hx Liver Disease: Yes (s/p cholecystectomy) Hx Insulin Dependent Diabetes: Yes Hx Non-Insulin Dependent Diabetes: Yes - Hematic Hx Sickle Cell Disease: Yes (TRAIT) - Other Systems Hx Alcohol Use: No Hx Substance Use: No Hx Cancer: No Hx Obesity: Yes
--- NOTE | 2017-09-20 13:05 | Anesthesia Day of Surgery ---
Anesthesia Day of Surgery - Day of Surgery Patient Examined: Yes Patient H&P Reviewed: Yes Patient is NPO: Yes
[2017-09-20] MEDS ORDERED: DIPRIVAN 10 MG/ML IV ONE ×2 (13:08)
--- NOTE | 2017-09-20 14:08 | Post Operative Note ---
Pre-op diagnosis: Abnl CT; stone in CBD Post-op diagnosis: other (Prior sphincterotomy, no gross leak, stone in CBD + sludge (removed), diverticulum) Findings: 1. Periampullary diverticulum, but no change. 2. Ampulla with evidence of sphincterotomy but o/w normal 3. PD not cannulated 4. CBD dilated (1cm) with distal filling defect - 9mm (x2) and 10mm (x1) balloon swept through the CBD with removal of sludge and small stone 5. No gross bile leak to RUQ despite occlusion cholangiogram, but given fluid collection, [id number] stent place in RUQ 6. Clips in RUQ c/w prior CCY Procedure: ERCP with balloon sweeping and stent in biliary tree Anesthesia: MAC Surgeon: SIGRID FERMIN Estimated blood loss: minimal Pathology: none Specimen disposition: other (N/A) Condition: stable Disposition: floor (Recs: 1. OK for regular diet. 2. Continue abx x 48 hours. 3. If LFTs improve, may d/c from our standpoint. 4. Repeat ERCP with stent removal in 6 weeks. 5. RUQ fluid collection re-image versus drain based on clinical course.)
--- NOTE | 2017-09-20 18:10 | Operative Report ---
PROCEDURE PERFORMED: Endoscopic retrograde cholangiopancreatography with balloon sweeping of the bile duct and biliary stent placement. POSTOPERATIVE DIAGNOSES: Common bile duct stone as well as possible biliary leak into the right upper quadrant. POSTOPERATIVE DIAGNOSES: Common bile duct stone, prior sphincterotomy, periampullary diverticulum, no gross bile leaks seen, but a biliary stent was placed given increase in the size of the fluid collection. ENDOSCOPIST: Rene Hdz MD INSTRUMENT: [place] (by [email or web address]) video endoscope. MEDICATIONS: MAC anesthesia by Anesthesia Services. COMPLICATIONS: No apparent complications. ESTIMATED BLOOD LOSS: Minimal. SPECIMENS: None. IMPLANTS: 10-[place] x 5 cm dual flange biliary stent in the common bile duct. ASSISTANTS: None. CONDITION AT COMPLETION: Stable. TECHNIQUE: The patient was informed of the risks and benefits of the procedure. She signed the informed consent to proceed. She was placed in the prone position. The above sedative medications were given. Her vital signs remained stable throughout the procedure. The instrument was advanced from the mouth to the ampulla under direct visualization. At that point, the bowel was insufflated and the endoscope was slowly withdrawn finding. The ampulla was identified by next to a periampullary diverticulum, other than evidence of a prior sphincterotomy, was within normal limits. The common bile duct was cannulated using a Dreamtome and a 0.035 guidewire. Cholangiogram showed evidence of a possible distal filling defect as well as probable sludge in the distal most common bile duct. We exchanged for a biliary balloon and a 9 mm (x 2) and a 10 mm (x 1) balloon was swept through the common bile duct with removal of sludge and a very small gallstone. We then performed an occlusion cholangiogram. We identified the right upper quadrant by clips from prior cholecystectomy, and I did not see any significant fluid accumulation from a large leak, but since the fluid collection has been increasing, I am concerned about a small biliary leak and a 10-[place]ian x 5 cm stent was placed in the common bile duct over a wire. The procedure was then terminated. FINDINGS: 1. Periampullary diverticulum on the proximal side of the ampulla, but no change from prior procedure. 2. The ampulla showed evidence of a sphincterotomy from 2 days ago with erythema and edema and a small ulceration, but was otherwise normal. 3. The pancreatic duct was not cannulated or injected during this procedure. 4. The common bile duct was dilated to 1 cm, with a distal filling defect. A. A 9 mm (x 2) and a 10 mm (x 1) balloon was swept through the common bile duct with removal of sludge and a very small, 1 mm gallstone. B. A cholangiogram failed to identify a significant leak, but due to the enlarging right upper quadrant fluid collection, we placed a 10-Estonian x 5 cm dual flange stent across the ampulla and into the distal common bile duct with excellent flow of bile at the end of the procedure. 5. Clips present in the right upper quadrant consistent with prior cholecystectomy. RECOMMENDATIONS: 1. Okay to advance the patient to a regular diet. 2. Continue antibiotics for 48 hours. 3. If the liver enzymes improved, the patient may be discharged from our standpoint. 4. Repeat ERCP with stent removal in 6 weeks. 5. Right upper quadrant fluid collection will be reimaged versus drained percutaneously based on the patient's clinical course. [facility]# [id number] REMEDIOS/CONSTANTINO
--- NOTE | 2017-09-20 20:15 | Progress Note ---
Assessment and Plan Assessment and plan: --Intractable nausea vomiting/abdominal pain, slight improvement --s/p ERCP with balloon sweeping and stent placement --Transaminitis ; status post ERCP and sphincterotomy LFTs Slowly trending down , Hepatitis panel, HIDA scan negative --Type 2 diabetes mellitus well controlled Continue Accu-Chek sliding scale coverage , ADA diet and increase Lantus insulin , add NovoLog before every meal Closely monitor --Malignant hypertension ; well controlled Continue current antihypertensives and when necessary medications --sp recent lap roni, management per surgery GI and surgery recommendations noted and appreciated Plan of care discussed with the patient, family members at the bedside and the nurse. Answered all the questions History Interval history: Patient had ERCP, removal of sludge and stone and stent placement per GI Patient continues to have abdominal pain and nausea Family members at the bedside Vital signs reviewed The patient is sedated and sleeping postprocedure Hospitalist Physical - Constitutional Vitals: Temp Pulse Resp BP Pulse Ox 98.8 F 78 20 136/80 100 09/20/17 14:09 09/20/17 14:24 09/20/17 14:24 09/20/17 14:24 09/20/17 14:24 General appearance: Present: no acute distress, well-nourished - EENT Eyes: Present: PERRL, EOM intact - Neck Neck: Present: supple, normal ROM - Respiratory Respiratory effort: normal Respiratory: bilateral: diminished, negative: rales, rhonchi, wheezing - Cardiovascular Rhythm: regular Heart Sounds: Present: S1 & S2 - Extremities Extremities: no ischemia, No edema - Abdominal General gastrointestinal: soft, non-tender, non-distended, normal bowel sounds - Integumentary Integumentary: Present: clear, warm - Psychiatric Psychiatric: appropriate mood/affect, cooperative - Neurologic Neurologic: CNII-XII intact, moves all extremities Results - Labs CBC & Chem 7: 09/20/17 04:00 09/20/17 04:00 Labs: Laboratory Last Values WBC 9.4 K/mm3 (4.5-11.0) 09/20/17 04:00 RBC 4.43 M/mm3 (3.65-5.03) 09/20/17 04:00 Hgb 11.7 gm/dl (10.1-14.3) 09/20/17 04:00 Hct 34.0 % (30.3-42.9) 09/20/17 04:00 MCV 77 fl (79-97) L 09/20/17 04:00 MCH 26 pg (28-32) L 09/20/17 04:00 MCHC 34 % (30-34) 09/20/17 04:00 RDW 14.4 % (13.2-15.2) 09/20/17 04:00 Plt Count 258 K/mm3 (140-440) 09/20/17 04:00 Lymph % (Auto) 18.9 % (13.4-35.0) 09/20/17 04:00 [place] % (Auto) 5.8 % (0.0-7.3) 09/20/17 04:00 Eos % (Auto) 2.3 % (0.0-4.3) 09/20/17 04:00 Baso % (Auto) 0.4 % (0.0-1.8) 09/20/17 04:00 Lymph # 1.8 K/mm3 (1.2-5.4) 09/20/17 04:00 [place] # 0.5 K/mm3 (0.0-0.8) 09/20/17 04:00 Eos # 0.2 K/mm3 (0.0-0.4) 09/20/17 04:00 Baso # 0.0 K/mm3 (0.0-0.1) 09/20/17 04:00 Seg Neutrophils % 72.6 % (40.0-70.0) H 09/20/17 04:00 Seg Neutrophils # 6.8 K/mm3 (1.8-7.7) 09/20/17 04:00 Sodium 141 mmol/L (137-145) 09/20/17 04:00 Potassium 3.6 mmol/L (3.6-5.0) 09/20/17 04:00 Chloride 98.0 mmol/L (98-107) 09/20/17 04:00 Carbon Dioxide 27 mmol/L (22-30) 09/20/17 04:00 Anion Gap 20 mmol/L 09/20/17 04:00 BUN 7 mg/dL (7-17) 09/20/17 04:00 Creatinine 0.4 mg/dL (0.7-1.2) L 09/20/17 04:00 Estimated GFR > 60 ml/min 09/20/17 04:00 BUN/Creatinine Ratio 18 % 09/20/17 04:00 Glucose 115 mg/dL (65-100) H 09/20/17 04:00 POC Glucose 131 (70-105) H 09/20/17 11:55 Hemoglobin A1c 9.7 % (4-6) H 09/15/17 08:26 Calcium 9.0 mg/dL (8.4-10.2) 09/20/17 04:00 Total Bilirubin 5.20 mg/dL (0.1-1.2) H 09/20/17 04:00 Direct Bilirubin 4.0 mg/dL (0-0.2) H 09/14/17 17:37 Indirect Bilirubin 0.6 mg/dL 09/14/17 17:37 AST 70 units/L (5-40) H 09/20/17 04:00 ALT 106 units/L (7-56) H 09/20/17 04:00 Alkaline Phosphatase 208 units/L (35-129) H 09/20/17 04:00 Total Protein 6.5 g/dL (6.3-8.2) 09/20/17 04:00 Albumin 3.2 g/dL (3.9-5) L 09/20/17 04:00 Albumin/Globulin Ratio 1.0 % 09/20/17 04:00 Amylase 55 units/L (27-131) 09/19/17 15:07 Lipase 38 units/L (13-60) 09/19/17 15:07 HCG, Qual Negative (Negative) 09/14/17 13:26 Urine Color Sadie (Yellow) 09/14/17 15:00 Urine Turbidity Clear (Clear) 09/14/17 15:00 Urine pH 7.0 (5.0-7.0) 09/14/17 15:00 Ur Specific [place] 1.013 (1.003-1.030) 09/14/17 15:00 Urine Protein <15 mg/dl mg/dL (Negative) 09/14/17 15:00 Urine Glucose (UA) Neg mg/dL (Negative) 09/14/17 15:00 Urine Ketones 80 mg/dL (Negative) 09/14/17 15:00 Urine Blood Neg (Negative) 09/14/17 15:00 Urine Nitrite Neg (Negative) 09/14/17 15:00 Urine Bilirubin Sm (Negative) 09/14/17 15:00 Urine Ictotest Negative (Negative) 09/14/17 15:00 Urine Urobilinogen < 2.0 mg/dL (<2.0) 09/14/17 15:00 Ur Leukocyte Esterase Neg (Negative) 09/14/17 15:00 Urine WBC (Auto) 3.0 /HPF (0.0-6.0) 09/14/17 15:00 Urine RBC (Auto) 7.0 /HPF (0.0-6.0) 09/14/17 15:00 U Epithel Cells (Auto) 4.0 /HPF (0-13.0) 09/14/17 15:00 Urine Bacteria (Auto) 1+ /HPF (Negative) 09/14/17 15:00 Urine Mucus Few /HPF 09/14/17 15:00 Hepatitis A IgM Ab Non-reactive (NonReactive) 09/16/17 04:38 Hep Bs Antigen Non-reactive (Negative) 09/16/17 04:38 Hep B Core IgM Ab Non-reactive (NonReactive) 09/16/17 04:38 Hepatitis C Antibody Non-reactive (NonReactive) 09/16/17 04:38
[2017-09-20] MEDS: NACL 0.9% 1000 ML 1,000 ML IV SCH (21:22)
[2017-09-20] MEDS: LEVEMIR SUB-Q SCH (22:01)
[2017-09-20] MEDS: NYSTATIN PO SCH (22:04)
[2017-09-21] MEDS: NOVOLOG SUB-Q SCH ×4 (00:16→15:50)
[2017-09-21 04:56] LABS: Alanine Aminotransferase 86 units/L (7-56); BUN/Creatinine Ratio 28; Blood Urea Nitrogen 11 mg/dL (7-17); Calcium 8.8 mg/dL (8.4-10.2); Hemolysis Index 0
[2017-09-21 04:57] LABS: Basophils # (Auto) 0.1 K/mm3 (0.0-0.1); Basophils % (Auto) 0.6 % (0.0-1.8); Eosinophils # (Auto) 0.3 K/mm3 (0.0-0.4); Eosinophils % (Auto) 3.7 % (0.0-4.3); Hematocrit 33.6 % (30.3-42.9); Hemoglobin 11.5 gm/dl (10.1-14.3); Lymphocytes # (Auto) 1.7 K/mm3 (1.2-5.4); Lymphocytes % (Auto) 19.3 % (13.4-35.0); Mean Corpuscular HGB Conc 34 % (30-34); Mean Corpuscular Hemoglobin 26 pg (28-32); Mean Corpuscular Volume 77 fl (79-97); Monocytes # (Auto) 0.4 K/mm3 (0.0-0.8); Monocytes % (Auto) 5.1 % (0.0-7.3); Platelet Count 309 K/mm3 (140-440); Red Blood Count 4.36 M/mm3 (3.65-5.03); Red Cell Distribution Width 14.5 % (13.2-15.2)
[2017-09-21] MEDS: ZOSYN/NS 4.5GM/100ML 4.5 GM/100 ML VIAL IV SCH ×3 (06:05→21:29)
[2017-09-21] MEDS: TESSALON PERLES PO SCH ×3 (06:06→21:31)
[2017-09-21] MEDS: APRESOLINE PO SCH ×3 (06:06→21:36)
[2017-09-21] MEDS: HEPARIN SUB-Q SCH ×4 (06:07→21:32)
[2017-09-21] MEDS: CATAPRES PO SCH ×2 (06:08→15:15)
--- NOTE | 2017-09-21 09:32 | Gastroenterology Progress Note ---
Assessment and Plan - Patient Problems (1) Choledocholithiasis Current Visit: Yes Status: Acute (2) Abnormal liver enzymes Current Visit: Yes Status: Acute (3) Cholelithiases Current Visit: Yes Status: Acute Qualifiers: Cholelithiasis location: bile duct Plan to address problem: S/p papillotomy and stent placement. Relapse of pain and nausea in the last 20 minutes after having a good night. LFTs improved though. Rule out pancreatitis related to ERCP/papillotomy. Will keep NPO for now, ondansetron, Dilaudid prn. Check stat amylase and lipase. Subjective Date of service: 09/21/17 Principal diagnosis: CBD stone Interval history: The patient reports having a good night, but suddenly having severe pain in the epigastrium radiating to the back this morning. She has nausea, but no vomiting. Objective - Constitutional Vitals: Temp Pulse Resp BP Pulse Ox 98.4 F 79 18 129/62 97 09/21/17 07:30 09/21/17 07:30 09/21/17 07:30 09/21/17 07:30 09/21/17 07:30 General appearance: other (Moderate distress) - EENT ENT: hearing intact, clear oral mucosa - Respiratory Respiratory effort: normal Respiratory: bilateral: CTA - Cardiovascular Rhythm: regular - Gastrointestinal General gastrointestinal: Present: soft, tender (Mild epigastric and RUQ pain.) , non-distended, normal bowel sounds, other (No reobound or guarding.) - Neurologic Neurological: alert and oriented x3 - Labs CBC & Chem 7: 09/21/17 04:14 09/21/17 04:14 Labs: Laboratory Results - last 24 hr 09/20/17 09/20/17 09/21/17 11:55 22:59 04:14 WBC RBC Hgb Hct MCV MCH MCHC RDW Plt Count Lymph % (Auto) [place] % (Auto) Eos % (Auto) Baso % (Auto) Lymph # [place] # Eos # Baso # Seg Neutrophils % Seg Neutrophils # Sodium 141 Potassium 3.7 Chloride 101.8 Carbon Dioxide 29 Anion Gap 14 BUN 11 Creatinine 0.4 L Estimated GFR > 60 BUN/Creatinine Ratio 28 Glucose 166 H POC Glucose 131 H 228 H Calcium 8.8 Magnesium Total Bilirubin 3.00 H AST 58 H ALT 86 H Alkaline Phosphatase 198 H Total Protein 7.0 Albumin 3.0 L Albumin/Globulin Ratio 0.8 09/21/17 09/21/17 09/21/17 04:14 04:14 07:57 WBC 8.5 RBC 4.36 Hgb 11.5 Hct 33.6 MCV 77 L MCH 26 L MCHC 34 RDW 14.5 Plt Count 309 Lymph % (Auto) 19.3 [place] % (Auto) 5.1 Eos % (Auto) 3.7 Baso % (Auto) 0.6 Lymph # 1.7 [place] # 0.4 Eos # 0.3 Baso # 0.1 Seg Neutrophils % 71.3 H Seg Neutrophils # 6.1 Sodium Potassium Chloride Carbon Dioxide Anion Gap BUN Creatinine Estimated GFR BUN/Creatinine Ratio Glucose POC Glucose 182 H Calcium Magnesium 2.10 Total Bilirubin AST ALT Alkaline Phosphatase Total Protein Albumin Albumin/Globulin Ratio Laboratory Results - last 24 hr 09/20/17 09/20/17 09/21/17 11:55 22:59 04:14 WBC RBC Hgb Hct MCV MCH MCHC RDW Plt Count Lymph % (Auto) [place] % (Auto) Eos % (Auto) Baso % (Auto) Lymph # [place] # Eos # Baso # Seg Neutrophils % Seg Neutrophils # Sodium 141 Potassium 3.7 Chloride 101.8 Carbon Dioxide 29 Anion Gap 14 BUN 11 Creatinine 0.4 L Estimated GFR > 60 BUN/Creatinine Ratio 28 Glucose 166 H POC Glucose 131 H 228 H Calcium 8.8 Magnesium Total Bilirubin 3.00 H AST 58 H ALT 86 H Alkaline Phosphatase 198 H Total Protein 7.0 Albumin 3.0 L Albumin/Globulin Ratio 0.8 09/21/17 09/21/17 09/21/17 04:14 04:14 07:57 WBC 8.5 RBC 4.36 Hgb 11.5 Hct 33.6 MCV 77 L MCH 26 L MCHC 34 RDW 14.5 Plt Count 309 Lymph % (Auto) 19.3 [place] % (Auto) 5.1 Eos % (Auto) 3.7 Baso % (Auto) 0.6 Lymph # 1.7 [place] # 0.4 Eos # 0.3 Baso # 0.1 Seg Neutrophils % 71.3 H Seg Neutrophils # 6.1 Sodium Potassium Chloride Carbon Dioxide Anion Gap BUN Creatinine Estimated GFR BUN/Creatinine Ratio Glucose POC Glucose 182 H Calcium Magnesium 2.10 Total Bilirubin AST ALT Alkaline Phosphatase Total Protein Albumin Albumin/Globulin Ratio
[2017-09-21] MEDS: ZOFRAN IV PRN (09:37)
[2017-09-21] MEDS: DILAUDID IV PRN (09:37)
[2017-09-21] MEDS: ZESTRIL PO SCH (10:10)
[2017-09-21] MEDS: NYSTATIN PO SCH ×3 (10:10→21:35)
[2017-09-21] MEDS: NORVASC PO SCH (10:10)
[2017-09-21 10:14] LABS: Lipase 50 units/L (13-60)
[2017-09-21] MEDS ORDERED: MORPHINE IV PRN ×2 (13:58→14:12)
--- NOTE | 2017-09-21 14:19 | Progress Note ---
Assessment and Plan - Patient Problems (1) Elevated bilirubin Current Visit: Yes Status: Acute Plan to address problem: Patient is stable. Bilirubin is down today. S/p ERCP with stent placement . Recheck tomorrow. Time=20min (2) Nausea & vomiting Current Visit: Yes Status: Resolved Qualifiers: Vomiting Intractability: unspecified Plan to address problem: I think it is clear now that this is related to her biliary issues. Pain and nausea triggered after two recent regular meals. Will try clears today. Panc enzymes were normal. Continue supportive care. (3) Productive cough Current Visit: Yes Status: Acute Plan to address problem: Also worried about productive cough. There are no signs of pneumonia on CXR or CT. Lung exam did not reveal any abnormal sounds. WBC is normal. Will monitor. Medicine not helping. Discussed with hospitalist yesterday. Will check flu test. (4) Thrush, oral Current Visit: Yes Status: Acute Plan to address problem: Cont Nystatin for 7 days. I encouraged her to at least use the Nystatin if not the other meds. Subjective Date of service: 09/21/17 Patient Reports: Positive: feels better (now. Pain has eased. 2 flare ups after meals. friend mentioned that dilaudid is associated with back pain. ), nausea ( much better now. ). Negative: vomiting Objective Vital Signs - 12hr 09/21/17 09/21/17 09/21/17 06:06 06:08 06:11 Temperature 98.3 F Pulse Rate 62 64 62 Respiratory Rate Blood Pressure 146/81 Blood Pressure 148/81 [Left] O2 Sat by Pulse Oximetry 09/21/17 09/21/17 07:30 11:53 Temperature 98.4 F 98.5 F Pulse Rate 80 73 Respiratory 18 20 Rate Blood Pressure Blood Pressure 129/62 158/78 [Left] O2 Sat by Pulse 98 98 Oximetry - General physical appearance well developed, well nourished, no distress, no pain, other (smiling. relaxed) - Eyes normal occular movement - Respiratory normal expansion, normal respiratory effort - Abdomen soft, tender (minimal around umbilicus), distended (mild), not guarding, not rigid - Labs 09/21/17 04:14 09/21/17 04:14 Diabetes panel 09/21/17 Range/Units 04:14 Sodium 141 (137-145) mmol/L Potassium 3.7 (3.6-5.0) mmol/L Chloride 101.8 (98-107) mmol/L Carbon Dioxide 29 (22-30) mmol/L BUN 11 (7-17) mg/dL Creatinine 0.4 L (0.7-1.2) mg/dL Glucose 166 H (65-100) mg/dL Calcium 8.8 (8.4-10.2) mg/dL AST 58 H (5-40) units/L ALT 86 H (7-56) units/L Alkaline Phosphatase 198 H (35-129) units/L Total Protein 7.0 (6.3-8.2) g/dL Albumin 3.0 L (3.9-5) g/dL Calcium panel 09/21/17 Range/Units 04:14 Calcium 8.8 (8.4-10.2) mg/dL Albumin 3.0 L (3.9-5) g/dL Pituitary panel 09/21/17 Range/Units 04:14 Sodium 141 (137-145) mmol/L Potassium 3.7 (3.6-5.0) mmol/L Chloride 101.8 (98-107) mmol/L Carbon Dioxide 29 (22-30) mmol/L BUN 11 (7-17) mg/dL Creatinine 0.4 L (0.7-1.2) mg/dL Glucose 166 H (65-100) mg/dL Calcium 8.8 (8.4-10.2) mg/dL Adrenal panel 09/21/17 Range/Units 04:14 Sodium 141 (137-145) mmol/L Potassium 3.7 (3.6-5.0) mmol/L Chloride 101.8 (98-107) mmol/L Carbon Dioxide 29 (22-30) mmol/L BUN 11 (7-17) mg/dL Creatinine 0.4 L (0.7-1.2) mg/dL Glucose 166 H (65-100) mg/dL Calcium 8.8 (8.4-10.2) mg/dL Total Bilirubin 3.00 H (0.1-1.2) mg/dL AST 58 H (5-40) units/L ALT 86 H (7-56) units/L Alkaline Phosphatase 198 H (35-129) units/L Total Protein 7.0 (6.3-8.2) g/dL Albumin 3.0 L (3.9-5) g/dL
[2017-09-21] MEDS: PROTONIX PO SCH (15:17)
--- NOTE | 2017-09-21 17:42 | Progress Note ---
Assessment and Plan Assessment and plan: --Intractable nausea vomiting/abdominal pain, significantly improved Diet as tolerated. -- post-ERCP pancreatitis; ruled out , pancreatic enzymes within normal limits --s/p ERCP with balloon sweeping and stent placement --Transaminitis ; status post ERCP and sphincterotomy LFTs trending down , Hepatitis panel, HIDA scan negative --Type 2 diabetes mellitus well controlled Continue Accu-Chek sliding scale coverage , ADA diet and increase Lantus insulin , add NovoLog before every meal Closely monitor --Malignant hypertension ; well controlled Continue current antihypertensives and when necessary medications Ambulate as tolerated Possible discharge in 1-2 days if stable and cleared by GI and surgery Plan of care discussed with the patient, family members at the bedside and the nurse. I discussed the case with surgeon Dr. Dr. Padilla History Interval history: Patient seen and examined medical records reviewed Patient feels slightly better Complains of more pain on receiving IV Dilaudid We will change to morphine Alert awake oriented 3 Vital signs reviewed Amylase lipase within normal limits Hospitalist Physical - Constitutional Vitals: Temp Pulse Resp BP Pulse Ox 98.9 F 74 20 173/88 100 09/21/17 15:49 09/21/17 15:49 09/21/17 15:49 09/21/17 15:49 09/21/17 15:49 General appearance: Present: no acute distress, well-nourished, obese - EENT Eyes: Present: PERRL, EOM intact - Neck Neck: Present: supple, normal ROM - Respiratory Respiratory effort: normal Respiratory: negative: rales, rhonchi, wheezing - Cardiovascular Rhythm: regular Heart Sounds: Present: S1 & S2 - Extremities Extremities: no ischemia, No edema - Abdominal General gastrointestinal: soft, non-tender, non-distended, normal bowel sounds - Integumentary Integumentary: Present: clear, warm - Psychiatric Psychiatric: appropriate mood/affect, cooperative - Neurologic Neurologic: CNII-XII intact, moves all extremities Results - Labs CBC & Chem 7: 09/21/17 04:14 09/21/17 04:14 Labs: Laboratory Last Values WBC 8.5 K/mm3 (4.5-11.0) 09/21/17 04:14 RBC 4.36 M/mm3 (3.65-5.03) 09/21/17 04:14 Hgb 11.5 gm/dl (10.1-14.3) 09/21/17 04:14 Hct 33.6 % (30.3-42.9) 09/21/17 04:14 MCV 77 fl (79-97) L 09/21/17 04:14 MCH 26 pg (28-32) L 09/21/17 04:14 MCHC 34 % (30-34) 09/21/17 04:14 RDW 14.5 % (13.2-15.2) 09/21/17 04:14 Plt Count 309 K/mm3 (140-440) 09/21/17 04:14 Lymph % (Auto) 19.3 % (13.4-35.0) 09/21/17 04:14 [place] % (Auto) 5.1 % (0.0-7.3) 09/21/17 04:14 Eos % (Auto) 3.7 % (0.0-4.3) 09/21/17 04:14 Baso % (Auto) 0.6 % (0.0-1.8) 09/21/17 04:14 Lymph # 1.7 K/mm3 (1.2-5.4) 09/21/17 04:14 [place] # 0.4 K/mm3 (0.0-0.8) 09/21/17 04:14 Eos # 0.3 K/mm3 (0.0-0.4) 09/21/17 04:14 Baso # 0.1 K/mm3 (0.0-0.1) 09/21/17 04:14 Seg Neutrophils % 71.3 % (40.0-70.0) H 09/21/17 04:14 Seg Neutrophils # 6.1 K/mm3 (1.8-7.7) 09/21/17 04:14 Sodium 141 mmol/L (137-145) 09/21/17 04:14 Potassium 3.7 mmol/L (3.6-5.0) 09/21/17 04:14 Chloride 101.8 mmol/L (98-107) 09/21/17 04:14 Carbon Dioxide 29 mmol/L (22-30) 09/21/17 04:14 Anion Gap 14 mmol/L 09/21/17 04:14 BUN 11 mg/dL (7-17) 09/21/17 04:14 Creatinine 0.4 mg/dL (0.7-1.2) L 09/21/17 04:14 Estimated GFR > 60 ml/min 09/21/17 04:14 BUN/Creatinine Ratio 28 % 09/21/17 04:14 Glucose 166 mg/dL (65-100) H 09/21/17 04:14 POC Glucose 225 (70-105) H 09/21/17 16:15 Hemoglobin A1c 9.7 % (4-6) H 09/15/17 08:26 Calcium 8.8 mg/dL (8.4-10.2) 09/21/17 04:14 Magnesium 2.10 mg/dL (1.7-2.3) 09/21/17 04:14 Total Bilirubin 3.00 mg/dL (0.1-1.2) H 09/21/17 04:14 Direct Bilirubin 4.0 mg/dL (0-0.2) H 09/14/17 17:37 Indirect Bilirubin 0.6 mg/dL 09/14/17 17:37 AST 58 units/L (5-40) H 09/21/17 04:14 ALT 86 units/L (7-56) H 09/21/17 04:14 Alkaline Phosphatase 198 units/L (35-129) H 09/21/17 04:14 Total Protein 7.0 g/dL (6.3-8.2) 09/21/17 04:14 Albumin 3.0 g/dL (3.9-5) L 09/21/17 04:14 Albumin/Globulin Ratio 0.8 % 09/21/17 04:14 Amylase 68 units/L (27-131) 09/21/17 09:37 Lipase 50 units/L (13-60) 09/21/17 09:37 HCG, Qual Negative (Negative) 09/14/17 13:26 Urine Color Sadie (Yellow) 09/14/17 15:00 Urine Turbidity Clear (Clear) 09/14/17 15:00 Urine pH 7.0 (5.0-7.0) 09/14/17 15:00 Ur Specific [place] 1.013 (1.003-1.030) 09/14/17 15:00 Urine Protein <15 mg/dl mg/dL (Negative) 09/14/17 15:00 Urine Glucose (UA) Neg mg/dL (Negative) 09/14/17 15:00 Urine Ketones 80 mg/dL (Negative) 09/14/17 15:00 Urine Blood Neg (Negative) 09/14/17 15:00 Urine Nitrite Neg (Negative) 09/14/17 15:00 Urine Bilirubin Sm (Negative) 09/14/17 15:00 Urine Ictotest Negative (Negative) 09/14/17 15:00 Urine Urobilinogen < 2.0 mg/dL (<2.0) 09/14/17 15:00 Ur Leukocyte Esterase Neg (Negative) 09/14/17 15:00 Urine WBC (Auto) 3.0 /HPF (0.0-6.0) 09/14/17 15:00 Urine RBC (Auto) 7.0 /HPF (0.0-6.0) 09/14/17 15:00 U Epithel Cells (Auto) 4.0 /HPF (0-13.0) 09/14/17 15:00 Urine Bacteria (Auto) 1+ /HPF (Negative) 09/14/17 15:00 Urine Mucus Few /HPF 09/14/17 15:00 Hepatitis A IgM Ab Non-reactive (NonReactive) 09/16/17 04:38 Hep Bs Antigen Non-reactive (Negative) 09/16/17 04:38 Hep B Core IgM Ab Non-reactive (NonReactive) 09/16/17 04:38 Hepatitis C Antibody Non-reactive (NonReactive) 09/16/17 04:38
[2017-09-21] MEDS: NACL 0.9% 1000 ML 1,000 ML IV SCH (21:29)
[2017-09-21] MEDS: LEVEMIR SUB-Q SCH (21:31)
[2017-09-22 04:51] LABS: Alanine Aminotransferase 78 units/L (7-56); Albumin 3.1 g/dL (3.9-5); BUN/Creatinine Ratio 15; Bilirubin,Direct 1.3 mg/dL (0-0.2); Blood Urea Nitrogen 6 mg/dL (7-17); Calcium 8.5 mg/dL (8.4-10.2); Hemolysis Index 5
[2017-09-22] MEDS: APRESOLINE PO SCH ×2 (05:38→14:00)
[2017-09-22] MEDS: TESSALON PERLES PO SCH ×2 (05:38→14:00)
[2017-09-22] MEDS: ZOFRAN IV PRN (05:38)
[2017-09-22] MEDS: HEPARIN SUB-Q SCH (05:41)
[2017-09-22] MEDS: NOVOLOG SUB-Q SCH ×4 (05:43→11:47)
[2017-09-22] MEDS: CATAPRES PO SCH ×2 (05:43→11:05)
[2017-09-22] MEDS: ZOSYN/NS 4.5GM/100ML 4.5 GM/100 ML VIAL IV SCH (05:44)
--- NOTE | 2017-09-22 09:32 | Fluoroscopy Report ---
FLUOROSCOPY ERCP BILIARY DUCT History: Abnormal liver function tests. Choledocholithiasis. Findings: Fluoroscopy was provided by radiology. ERCP by gastroenterology. 10 fluoroscopic images were captured. The images demonstrate injection of contrast agent into the biliary tree. The subsequent images demonstrate balloon sweep of the common bile duct to remove stones. A 10 [place] 5 cm common bile duct stent was placed which is in good position on the final image. Cholecystectomy changes are noted. No biliary leak is identified. The pancreatic duct was not injected. Impression: Removal of common bile duct stones and placement of a common bile duct stent as described. Please correlate with the procedural report as needed.
[2017-09-22] MEDS: PROTONIX PO SCH (10:35)
[2017-09-22] MEDS: NYSTATIN PO SCH (10:35)
[2017-09-22 10:36] VITALS: BP 149/70
[2017-09-22] MEDS: NORVASC PO SCH (10:36)
[2017-09-22] MEDS: ZESTRIL PO SCH (10:36)
--- NOTE | 2017-09-22 11:23 | Progress Note ---
Assessment and Plan - Patient Problems (1) Elevated bilirubin Current Visit: Yes Status: Acute Plan to address problem: Patient is stable. Bilirubin is down again today. S/p ERCP with stent placement 09/20. Recheck as out-pt. ok. to d/c home from my perspective. f/u in [address] Gusman Time=20min (2) Nausea & vomiting Current Visit: Yes Status: Resolved Qualifiers: Vomiting Intractability: unspecified Plan to address problem: I think it is clear now that this is related to her biliary issues. Much improved. Advised full liquid type diet for next week - should have 6-7 small meals per day. (3) Productive cough Current Visit: Yes Status: Acute Plan to address problem: Also worried about productive cough. There are no signs of pneumonia on CXR or CT. Lung exam did not reveal any abnormal sounds. WBC is normal. Will monitor. Medicine not helping. Discussed with hospitalist yesterday. Will check flu test. (4) Thrush, oral Current Visit: Yes Status: Resolved Plan to address problem: Issue resolved. No need to send her home on Nystatin. Completed almost 1 week. Subjective Patient Reports: Positive: no new complaints, feels better, tolerating liquids well (nurse reports that patient had regular diet from family last night and had no issues. ), bowel movement (x 2). Negative: nausea, vomiting Objective Vital Signs - 12hr 09/22/17 09/22/17 09/22/17 00:31 00:50 04:16 Temperature 99.4 F 98.5 F Pulse Rate 75 75 69 Respiratory 20 Rate Blood Pressure 151/72 Blood Pressure 165/73 [Left] O2 Sat by Pulse 100 99 Oximetry 09/22/17 09/22/17 09/22/17 05:38 07:16 10:36 Temperature 98.8 F Pulse Rate 69 75 82 Respiratory 20 Rate Blood Pressure 151/72 149/70 Blood Pressure 156/78 [Left] O2 Sat by Pulse 100 Oximetry - General physical appearance well developed, well nourished, no distress, no pain, other (smiling while in bed drinking juice) - Eyes normal occular movement - Respiratory normal expansion, normal respiratory effort - Abdomen soft, not tender, not distended, not guarding, not rigid, other (incisions C/D/ I. No hernias appreciated. Healing ridges noted - shown to patient. ) Hernia: none - Labs 09/21/17 04:14 09/22/17 04:22 Diabetes panel 09/22/17 Range/Units 04:22 Sodium 138 (137-145) mmol/L Potassium 3.9 (3.6-5.0) mmol/L Chloride 99.2 (98-107) mmol/L Carbon Dioxide 26 (22-30) mmol/L BUN 6 L (7-17) mg/dL Creatinine 0.4 L (0.7-1.2) mg/dL Glucose 224 H (65-100) mg/dL Calcium 8.5 (8.4-10.2) mg/dL AST 53 H (5-40) units/L ALT 78 H (7-56) units/L Alkaline Phosphatase 201 H (35-129) units/L Total Protein 7.0 (6.3-8.2) g/dL Albumin 3.1 L (3.9-5) g/dL Calcium panel 09/22/17 Range/Units 04:22 Calcium 8.5 (8.4-10.2) mg/dL Albumin 3.1 L (3.9-5) g/dL Pituitary panel 09/22/17 Range/Units 04:22 Sodium 138 (137-145) mmol/L Potassium 3.9 (3.6-5.0) mmol/L Chloride 99.2 (98-107) mmol/L Carbon Dioxide 26 (22-30) mmol/L BUN 6 L (7-17) mg/dL Creatinine 0.4 L (0.7-1.2) mg/dL Glucose 224 H (65-100) mg/dL Calcium 8.5 (8.4-10.2) mg/dL Adrenal panel 09/22/17 Range/Units 04:22 Sodium 138 (137-145) mmol/L Potassium 3.9 (3.6-5.0) mmol/L Chloride 99.2 (98-107) mmol/L Carbon Dioxide 26 (22-30) mmol/L BUN 6 L (7-17) mg/dL Creatinine 0.4 L (0.7-1.2) mg/dL Glucose 224 H (65-100) mg/dL Calcium 8.5 (8.4-10.2) mg/dL Total Bilirubin 2.20 H (0.1-1.2) mg/dL AST 53 H (5-40) units/L ALT 78 H (7-56) units/L Alkaline Phosphatase 201 H (35-129) units/L Total Protein 7.0 (6.3-8.2) g/dL Albumin 3.1 L (3.9-5) g/dL
--- NOTE | 2017-09-22 12:46 | Discharge Summary ---
Providers - Providers Date of Admission: 09/14/17 17:55 Date of discharge: 09/22/17 Attending physician: IRAIS NICK 09/15/17 13:11 Consult to Physician [CONS] Routine Consulting Provider: SIGRID FERMIN Reason For Exam: Elevated bilirubin Place consult to:: Office Notified:: yes Phone number called:: [phone] Was contact made?: Yes If yes, spoke with:: Pat Time called:: 09:35 Primary care physician: PLUG STITCHER Hospitalization Condition: Stable Disposition: DC-01 TO HOME OR SELFCARE Time spent for discharge: 32 min Core Measure Documentation - Palliative Care Palliative Care/ Comfort Measures: Not Applicable - Core Measures Any of the following diagnoses?: none Exam - Constitutional Vitals: Temp Pulse Resp BP Pulse Ox 98.8 F 82 20 149/70 100 09/22/17 07:16 09/22/17 10:36 09/22/17 07:16 09/22/17 10:36 09/22/17 07:16 General appearance: Present: no acute distress, well-nourished - EENT Eyes: Present: PERRL, EOM intact - Neck Neck: Present: supple, normal ROM - Respiratory Respiratory effort: normal Respiratory: negative: rales, rhonchi, wheezing - Cardiovascular Rhythm: regular Heart Sounds: Present: S1 & S2 - Extremities Extremities: no ischemia, No edema - Abdominal General gastrointestinal: Present: soft, non-tender, non-distended, normal bowel sounds - Integumentary Integumentary: Present: clear, warm - Musculoskeletal Musculoskeletal: strength equal bilaterally - Psychiatric Psychiatric: appropriate mood/affect, agitated - Neurologic Neurologic: CNII-XII intact, moves all extremities Plan Activity: no restrictions Diet: diabetic, advance as tolerated Additional Instructions: check LFTs in 1 week at PMD/GI office Follow up with: SILVANO PRATT DO [Staff Physician] - 7 Days PRIMARY CAREMD [Primary Care Provider] - 3-5 Days SIGRID FERIMN MD [Staff Physician] - 7 Days Prescriptions: amLODIPine [Norvasc] 10 mg PO QDAY #30 tablet Benzonatate [Tessalon Perles] 100 mg PO Q8HR #15 capsule hydrALAZINE [Apresoline TAB] 25 mg PO Q8HR #90 tablet Lisinopril [Zestril TAB] 20 mg PO QDAY #30 tablet Pantoprazole [Protonix TAB] 40 mg PO QDAY #30 tablet Other Discharge Orders: Hepatic Panel Time Frame: 1 Week, Facility: [facility], Location: LABORATORY
== END 2017-09-22 14:58 | disposition home or self-care (01) | DRG 445 ==
LOC: ED 12:46 → 3B-SURG 17:55
PROVIDERS: ADMIT Surgery; ATTEND Internal Medicine
PROC: 0FC98ZZ Extirpation of Matter from Common Bile Duct, Via Natural or Artificial Opening Endoscopic (ICD-10-PCS; principal; 2017-09-18)
PROC: 0F798ZZ Dilation of Common Bile Duct, Via Natural or Artificial Opening Endoscopic (ICD-10-PCS; 2017-09-18)
PROC: BF101ZZ Fluoroscopy of Bile Ducts using Low Osmolar Contrast (ICD-10-PCS; 2017-09-18)
PROC: 0F798DZ Dilation of Common Bile Duct with Intraluminal Device, Via Natural or Artificial Opening Endoscopic (ICD-10-PCS; 2017-09-20)
DX: K80.51 Calculus of bile duct without cholangitis or cholecystitis with obstruction (principal); B37.0 Candidal stomatitis; K31.84 Gastroparesis; I10 Essential (primary) hypertension; E11.8 Type 2 diabetes mellitus with unspecified complications; M19.90 Unspecified osteoarthritis, unspecified site; I16.0 Hypertensive urgency; R74.0 Nonspecific elevation of levels of transaminase and lactic acid dehydrogenase [LDH]; Z90.49 Acquired absence of other specified parts of digestive tract; Z79.4 Long term (current) use of insulin; Z79.899 Other long term (current) drug therapy
CPT/HCPCS: 36415; 71045; 71046; 74177; 74181; 74328; 78226; 80048; 80053; 80074; 81001; 82150; 82248; 82962; 83036; 83690; 83735; 84703; 85025; 87086; 96374; 96375; 96376; A9537; C1726; C2625; C9113; J0360; J1170; J1610; J1644; J1815; J1818; J1885; J2250; J2270; J2405; J2543; J2704; J3030; J7030; Q0169; Q9967

== ENCOUNTER 2019-06-16 08:52 | Outpatient (CLI) | payer MEDICAID ==
--- NOTE | 2019-06-17 08:43 | Mammography Report ---
DIGITAL SCREENING MAMMOGRAM WITH CAD, 06/16/2019 INDICATION: Routine screening mammography. TECHNIQUE: Digital bilateral 2D mammography was obtained in the craniocaudal and mediolateral obliq ue projections. This examination was interpreted with the benefit of Computer-Aided Detection analysi s. COMPARISON: None available. However, she indicated that she has had a previous mammogram. FINDINGS: Breast Density: The breasts are heterogeneously dense, which may obscure small masses. Right parenchymal asymmetries on both views require comparison with the prior mammogram or additional imaging. There is no evidence of dominant mass, suspicious calcifications or architectural distortio n in the left breast. IMPRESSION: Comparison with a previous mammogram is recommended. We will attempt to obtain a prior mammogram for comparison. If we do not obtain a prior mammogram within 30 days, a revised report will be issued rec ommending a recall for additional imaging. Please be advised that the patient should not schedule an appointment for return until adequate time (at least 2 weeks) has passed for us to obtain the prior m ammogram. Follow up recommendation: Obtain prior study for comparison Category 0: Incomplete. Needs additional imaging evaluation and/or prior mammograms for comparison. A "normal" or negative report should not discourage follow up or biopsy of a clinically significant f inding. A written summary of these findings will be mailed to the patient. The patient will be entered into a mammography reporting system which will generate a reminder letter for the patient's next appointmen t at the appropriate interval. The [employer] recommends yearly mammograms starting at age 40 and continuing as l liang as a woman is in good health. Breast MRI is recommended for women with an approximate 20-25% or greater lifetime risk of breast cancer, including women with a strong family history of breast or ova kevin cancer or who have been treated for Hodgkin's disease. Signer Name: Cayetano Nicholson MD Signed: 06/17/2019 8:38 AM Workstation Name: [id number]
== END 2019-06-16 08:53 | disposition home or self-care (01) ==
LOC: MAMMO 08:52
PROVIDERS: ATTEND Internal Medicine
DX: Z12.31 Encounter for screening mammogram for malignant neoplasm of breast (principal); I10 Essential (primary) hypertension
CPT/HCPCS: 77067

== ENCOUNTER 2019-08-12 13:46 | Outpatient (CLI) | payer MEDICAID ==
--- NOTE | 2019-08-12 15:02 | Ultrasound Report ---
RIGHT DIGITAL DIAGNOSTIC MAMMOGRAM WITH CAD 08/12/2019 RIGHT COMPLETE BREAST ULTRASOUND INDICATION: Recalled to evaluate asymmetries at screening. R92.8 TECHNIQUE: Digital right mammographic imaging was performed. Spot compression views were obtained. C omplete ultrasound of all four (4) quadrants was performed. This examination was interpreted with the benefit of Computer-Aided Detection (CAD) analysis. COMPARISON: 06/16/2019 FINDINGS: Breast Density: The breasts are heterogeneously dense, which may obscure small masses. MAMMOGRAPHIC FINDINGS: ML and spot compression MLO and CC views were performed. The lateral view is n egative. Near complete effacement of asymmetries on spot images. ULTRASOUND FINDINGS: Complete sonographic evaluation of all 4 quadrants and retroareolar region was p erformed. No mass, cyst or suspicious shadowing of the right breast. IMPRESSION: Negative mammogram and negative right breast ultrasound. Follow up recommendation: Routine yearly BI-RADS Category 1: Negative. A "normal" or negative report should not discourage follow up or biopsy of a clinically significant f inding. A written summary of these findings will be mailed to the patient. The patient will be entered into a mammography reporting system which will generate a reminder letter for the patient's next appointmen t at the appropriate interval. According to the [employer], yearly mammograms are recommended starting at age 40 and continuing as long as a woman is in good health. Breast MRI is recommended for women with an ranjana roximately 20-25% or greater lifetime risk of breast cancer, including women with a strong family his tory of breast or ovarian cancer and women who have been treated for Hodgkin's disease. Signer Name: Cayetano Nicholson MD Signed: 08/12/2019 2:58 PM Workstation Name: [id number]
== END 2019-08-12 13:47 | disposition home or self-care (01) ==
LOC: MAMMO 13:46
PROVIDERS: ATTEND Internal Medicine
DX: R92.8 Other abnormal and inconclusive findings on diagnostic imaging of breast (principal)